=== PATIENT | male | born 1940 | race Caucasian/White ===

== ENCOUNTER → 2020-01-30 10:47 | Outpatient (BNVA) | payer MEDICARE, SELFPAY | PROVIDERS: Visit Provider Nurse Practitioner Gerontology | DX: E11.22 Type 2 diabetes mellitus with diabetic chronic kidney disease (principal); I12.9 Hypertensive chronic kidney disease with stage 1 through stage 4 chronic kidney disease, or unspecified chronic kidney disease; N18.30 Chronic kidney disease, stage 3 unspecified; Z79.4 Long term (current) use of insulin; E78.5 Hyperlipidemia, unspecified | CPT/HCPCS: 82947; 99212 ==

== ENCOUNTER → 2020-05-07 09:34 | Outpatient (BNVA) | payer MEDICARE, SELFPAY | PROVIDERS: Visit Provider Nurse Practitioner Gerontology | DX: E11.22 Type 2 diabetes mellitus with diabetic chronic kidney disease (principal); I12.9 Hypertensive chronic kidney disease with stage 1 through stage 4 chronic kidney disease, or unspecified chronic kidney disease; N18.30 Chronic kidney disease, stage 3 unspecified; Z79.4 Long term (current) use of insulin; E78.5 Hyperlipidemia, unspecified; E66.09 Other obesity due to excess calories | CPT/HCPCS: 82947; 99212 ==

== ENCOUNTER → 2020-06-11 09:11 | Outpatient (REF) | payer MEDICARE, SELFPAY ==
[2020-06-11 10:55] LABS: Alanine Aminotransferase 16 U/L (0-40); Albumin Level 4.3 g/dL (3.5-5.0); Alkaline Phosphatase 45 U/L (39-117); Anion Gap 14 (12-20); Aspartate Amino Transferase 20 U/L (5-37); Blood Urea Nitrogen 30 mg/dL (9-16); Calcium 9.6 mg/dL (8.4-10.2); Carbon Dioxide 25 mmol/L (22-29); Chloride 105 mmol/L (96-108); Cholesterol 141 mg/dL; Estimated Glomerular Filt Rate 41; Glucose Fasting 113 mg/dL (60-99); HDL Cholesterol 66 mg/dL; LDL Cholesterol Calculated 57 mg/dl; Sodium 139 mmol/L (135-145); Total Protein 7.5 g/dL (6.5-8.0); Triglycerides 91 mg/dL
[2020-06-11 11:10] LABS: Creatinine Urine 47.27 mg/dL
== END ==
LOC: HO.CARD 09:11
PROVIDERS: Nurse Practitioner Gerontology; Visit Provider Internal Medicine Cardiovascular Disease
DX: I35.0 Nonrheumatic aortic (valve) stenosis (principal); E11.22 Type 2 diabetes mellitus with diabetic chronic kidney disease; N18.30 Chronic kidney disease, stage 3 unspecified
CPT/HCPCS: 36415; 80053; 80061; 82043

== ENCOUNTER → 2020-08-06 08:37 | Outpatient (BNVA) | payer MEDICARE, SELFPAY | PROVIDERS: PCP Internal Medicine; Visit Provider Nurse Practitioner Gerontology | DX: E11.22 Type 2 diabetes mellitus with diabetic chronic kidney disease (principal); E11.42 Type 2 diabetes mellitus with diabetic polyneuropathy; E66.01 Morbid (severe) obesity due to excess calories; Z68.41 Body mass index [BMI] 40.0-44.9, adult; E78.5 Hyperlipidemia, unspecified; I12.9 Hypertensive chronic kidney disease with stage 1 through stage 4 chronic kidney disease, or unspecified chronic kidney disease; N18.30 Chronic kidney disease, stage 3 unspecified; Z79.4 Long term (current) use of insulin; Z71.3 Dietary counseling and surveillance; Z79.899 Other long term (current) drug therapy | CPT/HCPCS: 82947; 99212 ==

== ENCOUNTER 2020-10-29 15:07 | Inpatient (IN) | payer MEDICARE, SELFPAY ==
--- NOTE | ~2020-10-29 | XR_ITS ---
EXAMINATION: XR CHEST CLINICAL INFORMATION: ET tube and triple lumen catheter placement COMPARISON: 10/29/2020 TECHNIQUE: Frontal view of the chest was obtained. FINDINGS: Endotracheal tube tip lies approximately 2 cm above the andreina. Enteric tube courses into the stomach. Right IJ central line tip lies in the region of the distal SVC. Lung volumes are symmetric. There is mild diffuse interstitial prominence with no focal consolidation seen. No evidence of pneumothorax. Trace pleural effusions cannot be excluded. The cardiomediastinal silhouette is stable. No acute osseous findings are seen. XR/XR chest 1V IMPRESSION: Endotracheal tube tip 2 cm above the andreina. Right IJ central line tip in the region of the distal SVC. Mild diffuse interstitial prominence redemonstrated.
--- NOTE | ~2020-10-29 | XR_ITS ---
EXAMINATION: XR CHEST CLINICAL INFORMATION: Covid positive COMPARISON: Chest 11/07/2020 TECHNIQUE: Frontal view of the chest was obtained. FINDINGS: Lungs are well-expanded and clear acute pneumonic process. Mild interstitial prominence. The heart size and pulmonary vascularity is normal. There is a right jugular central line in mid SVC, enteric tube below diaphragm in the stomach and endotracheal tube approximately 5 cm above the andreina. No gross bony abnormality seen. XR/XR chest 1V IMPRESSION: No significant change in the lines and catheters and mild interstitial prominence in both lungs compared to previous study.
--- NOTE | ~2020-10-29 | XR_ITS ---
EXAMINATION: XR CHEST CLINICAL INFORMATION: COVID positive. Shortness of breath COMPARISON: None TECHNIQUE: Frontal view of the chest was obtained. FINDINGS: Lung volumes are low with diffuse interstitial prominence. No focal consolidation or mass. No pleural effusion or pneumothorax. Enlarged cardiac silhouette. XR/XR chest 1V IMPRESSION: Low lung volumes with diffuse interstitial prominence. This could reflect bronchovascular crowding from low lung volumes, pulmonary venous hypertension, bronchitis, or interstitial pneumonitis.
--- NOTE | ~2020-10-29 | NM_ITS ---
EXAMINATION: NM LUNG IMAGE PERFUSION CLINICAL INDICATION: Hypoxia. Elevated d-dimer. COMPARISON: Chest x-ray performed earlier same date PROCEDURE: Following the intravenous administration of 2.5 millicuries technetium 99m MAA, images of the chest were again obtained in multiple projections using a gamma scintophoto camera. FINDINGS: No segmental or subsegmental perfusion defects or other perfusion abnormalities are noted. NM/NM pul perfusion IMPRESSION: Pulmonary embolism absence.
--- NOTE | ~2020-10-29 | XR_ITS ---
EXAMINATION: XR CHEST CLINICAL INFORMATION: Worsening hypoxia. Covid positive COMPARISON: November 07, 2020 and October 29, 2020 TECHNIQUE: AP portable view of the chest was obtained. FINDINGS: There is an increase in interstitial markings and peribronchial cuffing compared to previous study which may be on the basis of pulmonary edema of cardiogenic or noncardiogenic etiology as well as viral or atypical pneumonitis. There is a region of parenchymal disease seen in the left retrocardiac region which appears to involve the lingula and left lower lobe. Endotracheal tube tip is seen approximately 4 cm above the andreina. Right internal jugular central venous catheter seen at the caval atrial junction. Enteric tube is seen traversing into the stomach. XR/XR chest 1V IMPRESSION: Increase in interstitial lung disease bilaterally as well as new consolidation left lung base.
[2020-10-29 15:24] VITALS: BP 90/40; PULSE 90; O2SAT 95
[2020-10-29 15:26] VITALS: BP 96/51; PULSE 82; O2SAT 88
--- NOTE | 2020-10-29 15:26 | PC.NURSE ---
pt greenlandic speaking only. initial complain SOB and Diarrhea. pt COVID + - SaO2 88% on room air, pt started on 3L NC. BP 96/51
--- NOTE | 2020-10-29 15:29 | ECG_ITS ---
Test Reason : SOB Blood Pressure : / mmHG Vent. Rate : 089 BPM Atrial Rate : 089 BPM P-R Int : 216 ms QRS Dur : 090 ms QT Int : 344 ms P-R-T Axes : 011 -40 053 degrees QTc Int : 418 ms Sinus rhythm with 1st degree A-V block with Premature atrial complexes Left axis deviation Possible Anterior infarct , age undetermined Abnormal ECG No previous ECGs available Referred By: Lo Lundy Electronically Signed By:YAZAN RUBIO
[2020-10-29 15:58] VITALS: BP 96/52; PULSE 82; RESP 14; O2SAT 88; BMI 35.5
[2020-10-29] MEDS: dexAMETHasone sod phosphate 4 MG/ML VIAL 6 MG IVPUSH (16:27)
[2020-10-29 16:29] VITALS: PULSE 87; O2SAT 94
[2020-10-29 16:39] LABS: Alanine Aminotransferase 58 U/L (0-40); Albumin Level 3.9 g/dL (3.5-5.0); Alkaline Phosphatase 50 U/L (39-117); Anion Gap 16 (12-20); Aspartate Amino Transferase 126 U/L (5-37); Bilirubin Direct 0.5 mg/dL (0.0-0.5); Blood Urea Nitrogen 54 mg/dL (9-16); Calcium 8.6 mg/dL (8.4-10.2); Carbon Dioxide 15 mmol/L (22-29); Chloride 102 mmol/L (96-108); Estimated Glomerular Filt Rate 28; Glucose Random 128 mg/dL (60-115); Magnesium 1.7 mg/dL (1.6-2.6); Potassium 5.2 mmol/L (3.3-5.1); Sodium 128 mmol/L (135-145); Total Protein 7.1 g/dL (6.5-8.0)
[2020-10-29 16:48] LABS: MANUAL DIFF FLAG NO
[2020-10-29 16:49] LABS: Basophils Percent Auto 0.1 % (0-2); Hematocrit 47.3 % (42-52); Hemoglobin 15.8 g/dl (14.0-18.0); Imm Gran Abs Auto 0.04 X10*3/uL (0.00-0.03); Imm Gran Pct Auto 0.6 % (0.0-0.4); Lymphocytes Absolute Auto 0.5 X10*3/uL (1.2-4.9); Lymphocytes Percent Auto 6.5 % (20-40); Mean Corpuscular HGB Conc 33.4 g/dl (31.0-36.0); Mean Corpuscular Hemoglobin 29.7 pg (27.0-33.0); Mean Corpuscular Volume 88.9 fL (80-98); Mean Platelet Volume 12.4 fL (9.4-12.4); Monocytes Absolute Auto 0.6 X10*3/uL (0.1-1.2); Monocytes Percent Auto 8.2 % (2-11); Neutrophils Percent Auto 84.6 % (45-73); Platelet Count 100 X10*3/uL (160-400); Red Blood Count 5.32 X10*6/uL (4.60-5.80); Red Cell Distribution Width 14.6 % (11.0-16.0)
[2020-10-29 16:56] LABS: Prothrombin Time 11.9 SEC (9.9-13.0)
[2020-10-29 16:58] LABS: B Type Natriuretic Peptide 20 pg/mL (<100); Troponin-I High Sensitivity 93.1 ng/L (<3.5-35.0)
[2020-10-29 16:59] LABS: D Dimer 699 NG/ML; Partial Thromboplastin Time 35.6 SEC (24.1-38.0)
--- NOTE | 2020-10-29 17:01 | ED_ITS ---
HPI - SOB/Dyspnea General Chief Complaint: Dyspnea Stated Complaint: diarrhea/hypotension covid+ Time Seen by Provider: 10/29/20 15:28 Source: patient and EMS Mode of arrival: EMS History of Present Illness HPI Narrative: 79-year-old male with a past medical history of arthritis, CKD, HTN, hyperlipidemia, diabetes, venous insufficiency, presenting to the ED via EMS sent in from urgent care for SOB and diarrhea, noted to be 88% on RA. Montez martines reports mild cough and nausea. Denies fever, chills, abdominal pain, vomiting, LE edema, calf pain, recent travel, chest pain, COVID-19 exposure MD elicited complaint: shortness of breath and cough Related Data Home Medications Medication Instructions Recorded Confirmed blood sugar diagnostic #10 ea 01/30/20 08/06/20 cilostazol 100 mg tablet 100 mg PO BID@1200,2100 01/30/20 10/29/20 insulin aspart U-100 100 unit/mL See Rx Instructions SUBCUT .COMPLEX 01/30/20 10/29/20 (3 mL) subcutaneous pen insulin glargine 100 unit/mL (3 48 unit SUBCUT BEDTIME 01/30/20 10/29/20 mL) subcutaneous pen lancets 33 gauge #100 ea 01/30/20 08/06/20 lisinopril 20 mg tablet 20 mg PO DAILY 01/30/20 10/29/20 pen needle, diabetic 32 gauge x #50 ea 01/30/20 08/06/20 5/32 simvastatin 40 mg tablet 40 mg PO BEDTIME 01/30/20 10/29/20 aspirin 81 mg tablet,delayed 1 tab PO BEDTIME 10/29/20 10/29/20 release chlorthalidone 25 mg tablet 1 tab PO QAM 10/29/20 10/29/20 latanoprost 0.005 % eye drops 1 drp OPHTHALMIC (EYE) BEDTIME 10/29/20 10/29/20 Previous Rx's Medication Instructions Recorded dapagliflozin 10 mg tablet 10 mg PO QAM #90 tab 10/06/20 (Farxiga) dulaglutide 0.75 mg/0.5 mL 0.75 mg SUBCUT QWEEK #6 ml 10/06/20 subcutaneous [facility] metformin 500 mg tablet,extended 500 mg PO BID #180 tab 10/06/20 release 24 hr pioglitazone 15 mg tablet 15 mg PO QAM #90 tab 10/28/20 Allergies Allergy/AdvReac Type Severity Reaction Status Date / Time No Known Allergies Allergy Unverified 08/06/20 08:57 [No Known Allergies*] Review of Systems Review of Systems: Constitutional: No Fever, No Chills, No Fatigue, No Malaise ENT/Mouth: No Ear Pain, No sore throat, No Rhinorrhea, No Swallowing Difficulty Eyes: No Eye Pain, No Swelling, No Vision Changes Cardiovascular: No Chest Pain, + SOB, No Dyspnea on Exertion, No Orthopnea, No Edema, No Palpitations Respiratory: + Cough, No Sputum, No Dyspnea Gastrointestinal: + Nausea, No Vomiting, + Diarrhea, No Constipation, No Abdominal pain Genitourinary: No irregular bleeding, No Dysuria, No Urinary Frequency, No Hematuria Musculoskeletal: No joint pain, No Myalgias, No Joint Swelling Skin: No Skin Lesions, No rash Neuro: No Weakness, No Numbness, No Paresthesias Yes all other systems are reviewed and are negative [facility] Past Medical History Attestation statement: The following information was validated with the patient. 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 Venous insufficiency Family History Family History (Updated 01/30/20 @ 11:37 by AZALIA Basurto) Sister Diabetes Social History Social History (Updated 05/07/20 @ 10:21 by AZALIA Basurto) Household Members: None Alcohol intake: current Alcohol intake frequency: a few times a month Patient Tobacco Use Status: Never used Tobacco Use of substances other than those prescribed or required for medical reasons: No Advance Directives: No Advance Directives Information Provided: Yes Physical Exam Vital Signs: Vital Signs: Last Vital Signs Pulse 82 10/29/20 18:06 Resp 14 10/29/20 18:06 BP 104/58 L 10/29/20 18:06 Pulse Ox 95 10/29/20 18:06 Body Mass Index 35.5 Const: General: cooperative, healthy appearing and no acute distress Orientation/consciousness: patient oriented x3 Limitations: no limitations HENMT: Head: Yes normal to inspection Ears: hearing grossly normal bilaterally General nose exam: Normal external nose present Face and sinus: Yes normal facial exam Eyes: General: appearance normal, both eyes and all related structures EOM: EOMs intact bilaterally Neck: Neck: Yes normal visual inspection and Yes no meningeal signs Resp: Effort & Inspection: normal respiratory effort Auscultation: clear to auscultation bilaterally, crackles bilateral in the lower lung brewer and no wheezes Cardio: Rate: regular rate Heart sounds: S1 normal heart sound present and S2 normal heart sound present GI: Inspection: Yes normal to inspection Palpation (GI): Soft to palpation, nontender and no guarding Skin: Rashes: no rashes Wounds: no wounds Neuro: General: patient oriented x3 and no meningeal signs Gait exam (Neuro): Normal gait present Extrem: General: Yes normal to inspection, Yes no pedal edema and Yes no calf tenderness Course Course Course Narrative: -1712--no leukocytosis. Platelets chronically low, Hyponatremic 128 > serum osmolality/urine studies ordered, potassium 5.2 > Kayexalate ordered -AST/ALT elevated. Acute on chronic Renal failure with BUN of 54, creatinine 2.2 >likely from dehydration with patient's diarrhea. -troponin elevated to 93.1 >> will obtain 3 hour repeat. D-dimer elevated to 699 (cannot perform CTA secondary to renal dysfunction), LDH & CRP also elevated consistent with COVID infection XR chest 1V IMPRESSION: Low lung volumes with diffuse interstitial prominence. This could reflect bronchovascular crowding from low lung volumes, pulmonary venous hypertension, bronchitis, or interstitial pneumonitis. ? -1812--ferritin also elevated. Procalcitonin 5.32 -1850--patient is COVID-19 positive > plan for admission MDM - SOB/Dyspnea MDM Narrative Medical decision making narrative: 79-year-old male with a past medical history of arthritis, CKD, HTN, hyperlipidemia, diabetes, venous insufficiency, presenting to the ED via EMS sent in from urgent care for SOB and diarrhea, not ed to be 88% on RA. Patient reports mild cough and nausea. On exam mildly hypotensive, hypoxic to 88% on RA > increased today 94% on 4L NC, in no respiratory distress, comfortable, lungs with bibasilar crackles, abdomen soft/nontender, no pedal edema/calf tenderness. Concern for viral syndrome/CO VID-19. Rule out pneumonia/other infectious etiology. Low concern for severe sepsis at this time. Likely viral etiology Plan: EKG, labs, CXR, COVID-19 testing, lactate, blood cultures. Medical Records Attestation: I reviewed the patient's medical records. Lab Data Attestation: I reviewed the patient's lab results. Result diagrams: 10/29/20 16:41 10/29/20 16:12 Labs: Lab Results 10/29/20 10/29/20 10/29/20 Range/Units 16:12 16:12 16:41 WBC 7.0 (4.8-10.8) X10*3/uL RBC 5.32 (4.60-5.80) X10*6/uL Hgb 15.8 (14.0-18.0) g/dl Hct 47.3 (42-52) % MCV 88.9 (80-98) fL MCH 29.7 (27.0-33.0) pg MCHC 33.4 (31.0-36.0) g/dl RDW 14.6 (11.0-16.0) % Plt Count 100 L (160-400) X10*3/uL MPV 12.4 (9.4-12.4) fL Immature Gran % (Auto) 0.6 H (0.0-0.4) % Neut % (Auto) 84.6 H (45-73) % Lymph % (Auto) 6.5 L (20-40) % Park % (Auto) 8.2 (2-11) % Eos % (Auto) 0.0 (0-4) % Baso % (Auto) 0.1 (0-2) % Lymph # (Auto) 0.5 L (1.2-4.9) X10*3/uL [place] # (Auto) 0.6 (0.1-1.2) X10*3/uL Eos # (Auto) 0.0 (0.0-0.4) X10*3/uL Baso # (Auto) 0.0 (0.0-0.2) X10*3/uL Abs Immat Gran (auto) 0.04 H (0.00-0.03) X10*3/uL Absolute Neuts (auto) 6.0 (2.0-8.3) X10*3/uL Absolute Nucleated RBC 0.000 (0.0-0.012) X10*3/uL Nucleated RBC % (auto) 0.0 (0.0-0.2) /100WBC PT (9.9-13.0) SEC INR (0.9-1.1) APTT (24.1-38.0) SEC D-Dimer NG/ML Sodium 128 L (135-145) mmol/L Potassium 5.2 H (3.3-5.1) mmol/L Chloride 102 (96-108) mmol/L Carbon Dioxide 15 L (22-29) mmol/L Anion Gap 16 (12-20) BUN 54 H D (9-16) mg/dL Creatinine 2.24 H (0.5-1.4) mg/dL Estim Creat Clear Calc 30.0 Estimated GFR 28 Random Glucose 128 H (60-115) mg/dL Osmolality (281-305) mosm/kg Lactic Acid (0.5-2.0) mmol/L Calcium 8.6 D (8.4-10.2) mg/dL Magnesium 1.7 (1.6-2.6) mg/dL Ferritin (20-250) ng/mL Total Bilirubin 1.0 (0.0-1.0) mg/dL Direct Bilirubin 0.5 (0.0-0.5) mg/dL AST 126 H (5-37) U/L ALT 58 H (0-40) U/L Alkaline Phosphatase 50 (39-117) U/L Lactate Dehydrogenase (118-273) U/L Troponin I High Sens 93.1 H* (<3.5-35.0) ng/L C-Reactive Protein (< or = 0.50) mg/dL B-Natriuretic Peptide 20 (<100) pg/mL Total Protein 7.1 (6.5-8.0) g/dL Albumin 3.9 (3.5-5.0) g/dL Procalcitonin ng/mL Coronavirus (PCR) (Negative) Influenza Type A (PCR) (Negative) Influenza Type B (PCR) (Negative) RSV RNA Qual (PCR) (Negative) 10/29/20 10/29/20 10/29/20 Range/Units 16:41 16:41 16:41 WBC (4.8-10.8) X10*3/uL RBC (4.60-5.80) X10*6/uL Hgb (14.0-18.0) g/dl Hct (42-52) % MCV (80-98) fL MCH (27.0-33.0) pg MCHC (31.0-36.0) g/dl RDW (11.0-16.0) % Plt Count (160-400) X10*3/uL MPV (9.4-12.4) fL Immature Gran % (Auto) (0.0-0.4) % Neut % (Auto) (45-73) % Lymph % (Auto) (20-40) % [place] % (Auto) (2-11) % Eos % (Auto) (0-4) % Baso % (Auto) (0-2) % Lymph # (Auto) (1.2-4.9) X10*3/uL [place] # (Auto) (0.1-1.2) X10*3/uL Eos # (Auto) (0.0-0.4) X10*3/uL Baso # (Auto) (0.0-0.2) X10*3/uL Abs Immat Gran (auto) (0.00-0.03) X10*3/uL Absolute Neuts (auto) (2.0-8.3) X10*3/uL Absolute Nucleated RBC (0.0-0.012) X10*3/uL Nucleated RBC % (auto) (0.0-0.2) /100WBC PT 11.9 (9.9-13.0) SEC INR 1.0 (0.9-1.1) APTT 35.6 (24.1-38.0) SEC D-Dimer 699 NG/ML Sodium (135-145) mmol/L Potassium (3.3-5.1) mmol/L Chloride (96-108) mmol/L Carbon Dioxide (22-29) mmol/L Anion Gap (12-20) BUN (9-16) mg/dL Creatinine (0.5-1.4) mg/dL Estim Creat Clear Calc Estimated GFR Random Glucose (60-115) mg/dL Osmolality (281-305) mosm/kg Lactic Acid 1.9 (0.5-2.0) mmol/L Calcium (8.4-10.2) mg/dL Magnesium (1.6-2.6) mg/dL Ferritin 878 H (20-250) ng/mL Total Bilirubin (0.0-1.0) mg/dL Direct Bilirubin (0.0-0.5) mg/dL AST (5-37) U/L ALT (0-40) U/L Alkaline Phosphatase (39-117) U/L Lactate Dehydrogenase 444 H (118-273) U/L Troponin I High Sens (<3.5-35.0) ng/L C-Reactive Protein 12.11 H (< or = 0.50) mg/dL B-Natriuretic Peptide (<100) pg/mL Total Protein (6.5-8.0) g/dL Albumin (3.5-5.0) g/dL Procalcitonin ng/mL Coronavirus (PCR) (Negative) Influenza Type A (PCR) (Negative) Influenza Type B (PCR) (Negative) RSV RNA Qual (PCR) (Negative) 10/29/20 10/29/20 10/29/20 Range/Units 16:41 16:41 16:49 WBC (4.8-10.8) X10*3/uL RBC (4.60-5.80) X10*6/uL Hgb (14.0-18.0) g/dl Hct (42-52) % MCV (80-98) fL MCH (27.0-33.0) pg MCHC (31.0-36.0) g/dl RDW (11.0-16.0) % Plt Count (160-400) X10*3/uL MPV (9.4-12.4) fL Immature Gran % (Auto) (0.0-0.4) % Neut % (Auto) (45-73) % Lymph % (Auto) (20-40) % [place] % (Auto) (2-11) % Eos % (Auto) (0-4) % Baso % (Auto) (0-2) % Lymph # (Auto) (1.2-4.9) X10*3/uL [place] # (Auto) (0.1-1.2) X10*3/uL Eos # (Auto) (0.0-0.4) X10*3/uL Baso # (Auto) (0.0-0.2) X10*3/uL Abs Immat Gran (auto) (0.00-0.03) X10*3/uL Absolute Neuts (auto) (2.0-8.3) X10*3/uL Absolute Nucleated RBC (0.0-0.012) X10*3/uL Nucleated RBC % (auto) (0.0-0.2) /100WBC PT (9.9-13.0) SEC INR (0.9-1.1) APTT (24.1-38.0) SEC D-Dimer NG/ML Sodium (135-145) mmol/L Potassium (3.3-5.1) mmol/L Chloride (96-108) mmol/L Carbon Dioxide (22-29) mmol/L Anion Gap (12-20) BUN (9-16) mg/dL Creatinine (0.5-1.4) mg/dL Estim Creat Clear Calc Estimated GFR Random Glucose (60-115) mg/dL Osmolality 285 (281-305) mosm/kg Lactic Acid (0.5-2.0) mmol/L Calcium (8.4-10.2) mg/dL Magnesium (1.6-2.6) mg/dL Ferritin (20-250) ng/mL Total Bilirubin (0.0-1.0) mg/dL Direct Bilirubin (0.0-0.5) mg/dL AST (5-37) U/L ALT (0-40) U/L Alkaline Phosphatase (39-117) U/L Lactate Dehydrogenase (118-273) U/L Troponin I High Sens (<3.5-35.0) ng/L C-Reactive Protein (< or = 0.50) mg/dL B-Natriuretic Peptide (<100) pg/mL Total Protein (6.5-8.0) g/dL Albumin (3.5-5.0) g/dL Procalcitonin 5.32 ng/mL Coronavirus (PCR) POSITIVE A (Negative) Influenza Type A (PCR) NEGATIVE (Negative) Influenza Type B (PCR) NEGATIVE (Negative) RSV RNA Qual (PCR) NEGATIVE (Negative) Discharge Plan Discharge Clinical Impression: COVID-19 Patient Disposition: Admitted As Inpatient Prescriptions: No Action Farxiga 10 mg tablet 10 mg PO QAM Qty: 90 RF: 1 Trulicity 0.75 mg/0.5 mL pen injector 0.75 mg subcut QWEEK Qty: 6 RF: 0 metformin 500 mg tablet extended release 24 hr 500 mg PO BID Qty: 180 RF: 0 pioglitazone 15 mg tablet 15 mg PO QAM Qty: 90 RF: 1 latanoprost 0.005 % drops 1 drp ophthalmic (eye) BEDTIME RF: 0 chlorthalidone 25 mg tablet 1 tab PO QAM RF: 0 aspirin 81 mg tablet,delayed release (DR/EC) 1 tab PO BEDTIME RF: 0 (DME) lancets 33 gauge misc See Rx Instructions ea .ROUTE .MEDSUPPLY Qty: 100 RF: 0 (DME) pen needle, diabetic 32 gauge x 5/32 needle See Rx Instructions ea .ROUTE .MEDSUPPLY Qty: 50 RF: 0 Lantus Solostar U-100 Insulin 100 unit/mL (3 mL) insulin pen 48 unit subcut BEDTIME RF: 0 simvastatin 40 mg tablet 40 mg PO BEDTIME RF: 0 (DME) FreeStyle Lite Strips Strip See Rx Instructions ea Not Applicable .MEDSUPPLY Qty: 10 RF: 0 lisinopril 20 mg tablet 20 mg PO DAILY RF: 0 cilostazol 100 mg tablet 100 mg PO BID@1200,2100 RF: 0 insulin aspart U-100 100 unit/mL (3 mL) insulin pen See Rx Instructions subcut .COMPLEX RF: 0
[2020-10-29 17:04] LABS: Lactic Acid 1.9 mmol/L (0.5-2.0)
[2020-10-29 17:06] LABS: C Reactive Protein 12.11 mg/dL (< or = 0.50); Lactate Dehydrogenase 444 U/L (118-273)
[2020-10-29 17:28] LABS: Ferritin 878 ng/mL (20-250); Procalcitonin 5.32 ng/mL
[2020-10-29 18:06] VITALS: BP 104/58; PULSE 82; RESP 14; O2SAT 95
[2020-10-29] MEDS: Sodium Polystyrene Sulfon/Sorb 15 GM/60 ML ORAL.SUSP PO (18:08)
[2020-10-29] MEDS: 0.9 % Sodium Chloride 1,000 ML 999 ML IVCONT (18:10)
[2020-10-29 18:31] LABS: Osmolality, Serum 285 mosm/kg (281-305)
[2020-10-29 18:38] LABS: Influenza A PCR NEGATIVE (Negative); Influenza B PCR NEGATIVE (Negative); Resp Syncy Virus RNA Qual PCR NEGATIVE (Negative); SARS COV2 PCR INHOUSE POSITIVE (Negative)
[2020-10-29] MEDS: cefTRIAXone sodium 1 GM in 0.9 % Sodium Chloride 50 ML IV (19:10)
--- NOTE | 2020-10-29 19:43 | PC.NURSE ---
PT OFF UNIT - UNABLE TO START NEXT ABX
[2020-10-29] MEDS: Doxycycline Hyclate 100 MG in 0.9 % Sodium Chloride 250 ML 166.67 MG IV (20:30)
--- NOTE | 2020-10-29 20:30 | PC.NURSE ---
PT BACK FROM NUCLEAR MEDICINE - STARTED ON ABX
[2020-10-29 20:31] VITALS: BP 118/63; PULSE 78; RESP 14; TEMP 37.4; O2SAT 97
--- NOTE | 2020-10-29 22:15 | PM.IMHP ---
History of Present Illness Date of Service: 10/29/20 Chief Complaint: COVID +ve hypoxia 79-year-old male with past medical history of CKD, HTN, HLD, diabetes on insulin, presents to the hospital with COVID-19 symptoms. Patient himself is English-speaking, confused about his location as well as time, is not really giving good history therefore history is obtained mostly from ED staff. Apparently patient had cough and shortness of breath and therefore went to urgent care clinic found to have positive COVID resolved and sent to the ED. Patient himself denies any shortness of breath, no cough, no chest pain, no palpitations, no fever or chills, denies any sick contacts and recent travel. All other review of system negative except as mentioned On arrival to the ED patient found to be hypoxic with an O2 level of 88% on room air. Labs on arrival significant for WBC count of 7.0 sodium of 128, potassium 5.2, BUN of 54 with a creatinine of 2.24 with a baseline around 1.63, AST of 126, ALT of 58, troponin of 93 that increased to 103.0, COVID-19 positive PCR Chest x-ray shows low lung volume with diffuse interstitial prominence. 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 Venous insufficiency Family History Sister Diabetes Pertinent family history: Unable to obtain as patient is confused Surgical History (Updated 10/30/20 @ 07:31 by Faith Strong MD) No pertinent past surgical history Social History (Updated 05/07/20 @ 10:21 by AZALIA Basurto) Household Members: None Alcohol intake: current Alcohol intake frequency: a few times a month Patient Tobacco Use Status: Never used Tobacco Use of substances other than those prescribed or required for medical reasons: No Advance Directives: No Advance Directives Information Provided: Yes Meds Allergies Allergy/AdvReac Type Severity Reaction Status Date / Time No Known Allergies Allergy Unverified 08/06/20 08:57 [No Known Allergies*] Active Medications: Current Medications Generic Name Dose Route Start Last Admin Trade Name Alisha PRN Reason Stop Dose Admin Pharmacy Consult 1 each 10/29/20 15:29 Consult Rx Perform Med Rec MISCELLANE ONCE PRN Consult order Home Medications Medication Instructions Recorded Confirmed Last Taken Type blood sugar diagnostic #10 ea 01/30/20 08/06/20 Unknown History cilostazol 100 mg tablet 100 mg PO BID@1200,2100 01/30/20 10/29/20 Unknown History insulin aspart U-100 100 unit/mL See Rx Instructions SUBCUT .COMPLEX 01/30/20 10/29/20 Unknown History (3 mL) subcutaneous pen insulin glargine 100 unit/mL (3 48 unit SUBCUT BEDTIME 01/30/20 10/29/20 Unknown History mL) subcutaneous pen lancets 33 gauge #100 ea 01/30/20 08/06/20 Unknown History lisinopril 20 mg tablet 20 mg PO DAILY 01/30/20 10/29/20 Unknown History pen needle, diabetic 32 gauge x #50 ea 01/30/20 08/06/20 Unknown History simvastatin 40 mg tablet 40 mg PO BEDTIME 01/30/20 10/29/20 Unknown History aspirin 81 mg tablet,delayed 1 tab PO BEDTIME 10/29/20 10/29/20 Unknown History release chlorthalidone 25 mg tablet 1 tab PO QAM 10/29/20 10/29/20 Unknown History latanoprost 0.005 % eye drops 1 drp OPHTHALMIC (EYE) BEDTIME 10/29/20 10/29/20 Unknown History Physical Exam Vital Signs and Narrative: Vital Signs: Last Vital Signs Temp 99.3 F 10/29/20 20:31 Pulse 78 10/29/20 20:31 Resp 14 10/29/20 20:31 BP 118/63 10/29/20 20:31 Pulse Ox 97 10/29/20 20:31 Body Mass Index 35.5 Const: General: cooperative and no acute distress Eyes: General: appearance normal, both eyes and all related structures Resp: Effort & Inspection: normal respiratory effort Cardio: Rate: regular rate Rhythm: regular rhythm GI: Palpation (GI): Soft to palpation Auscultation: normal bowel sounds Skin: General skin exam: no rashes or lesions noted Neuro: Cognition (Neuro): normal cognition Extrem: General: Yes normal to inspection and Yes no pedal edema Results Labs CBC and Chem 7: 10/29/20 16:41 10/29/20 16:12 Labs: Laboratory Results - last 24 hr 10/29/20 10/29/20 10/29/20 16:12 16:12 16:41 MCV 88.9 MCH 29.7 MCHC 33.4 RDW 14.6 Plt Count 100 L MPV 12.4 Immature Gran % (Auto) 0.6 H Neut % (Auto) 84.6 H Lymph % (Auto) 6.5 L [place] % (Auto) 8.2 Eos % (Auto) 0.0 Baso % (Auto) 0.1 Lymph # (Auto) 0.5 L [place] # (Auto) 0.6 Eos # (Auto) 0.0 Baso # (Auto) 0.0 Abs Immat Gran (auto) 0.04 H Absolute Neuts (auto) 6.0 Absolute Nucleated RBC 0.000 Nucleated RBC % (auto) 0.0 PT INR APTT D-Dimer Anion Gap 16 Estim Creat Clear Calc 30.0 Estimated GFR 28 Random Glucose 128 H Osmolality Lactic Acid Calcium 8.6 D Magnesium 1.7 Ferritin Total Bilirubin 1.0 Direct Bilirubin 0.5 AST 126 H ALT 58 H Alkaline Phosphatase 50 Lactate Dehydrogenase Troponin I High Sens 93.1 H* C-Reactive Protein B-Natriuretic Peptide 20 Total Protein 7.1 Albumin 3.9 Procalcitonin Coronavirus (PCR) Influenza Type A (PCR) Influenza Type B (PCR) RSV RNA Qual (PCR) 10/29/20 10/29/20 10/29/20 16:41 16:41 16:41 MCV MCH MCHC RDW Plt Count MPV Immature Gran % (Auto) Neut % (Auto) Lymph % (Auto) [place] % (Auto) Eos % (Auto) Baso % (Auto) Lymph # (Auto) [place] # (Auto) Eos # (Auto) Baso # (Auto) Abs Immat Gran (auto) Absolute Neuts (auto) Absolute Nucleated RBC Nucleated RBC % (auto) PT 11.9 INR 1.0 APTT 35.6 D-Dimer 699 Anion Gap Estim Creat Clear Calc Estimated GFR Random Glucose Osmolality Lactic Acid 1.9 Calcium Magnesium Ferritin 878 H Total Bilirubin Direct Bilirubin AST ALT Alkaline Phosphatase Lactate Dehydrogenase 444 H Troponin I High Sens C-Reactive Protein 12.11 H B-Natriuretic Peptide Total Protein Albumin Procalcitonin Coronavirus (PCR) Influenza Type A (PCR) Influenza Type B (PCR) RSV RNA Qual (PCR) 10/29/20 10/29/20 10/29/20 16:41 16:41 16:49 MCV MCH MCHC RDW Plt Count MPV Immature Gran % (Auto) Neut % (Auto) Lymph % (Auto) [place] % (Auto) Eos % (Auto) Baso % (Auto) Lymph # (Auto) [place] # (Auto) Eos # (Auto) Baso # (Auto) Abs Immat Gran (auto) Absolute Neuts (auto) Absolute Nucleated RBC Nucleated RBC % (auto) PT INR APTT D-Dimer Anion Gap Estim Creat Clear Calc Estimated GFR Random Glucose Osmolality 285 Lactic Acid Calcium Magnesium Ferritin Total Bilirubin Direct Bilirubin AST ALT Alkaline Phosphatase Lactate Dehydrogenase Troponin I High Sens C-Reactive Protein B-Natriuretic Peptide Total Protein Albumin Procalcitonin 5.32 Coronavirus (PCR) POSITIVE A Influenza Type A (PCR) NEGATIVE Influenza Type B (PCR) NEGATIVE RSV RNA Qual (PCR) NEGATIVE 10/29/20 19:47 MCV MCH MCHC RDW Plt Count MPV Immature Gran % (Auto) Neut % (Auto) Lymph % (Auto) [place] % (Auto) Eos % (Auto) Baso % (Auto) Lymph # (Auto) [place] # (Auto) Eos # (Auto) Baso # (Auto) Abs Immat Gran (auto) Absolute Neuts (auto) Absolute Nucleated RBC Nucleated RBC % (auto) PT INR APTT D-Dimer Anion Gap Estim Creat Clear Calc Estimated GFR Random Glucose Osmolality Lactic Acid Calcium Magnesium Ferritin Total Bilirubin Direct Bilirubin AST ALT Alkaline Phosphatase Lactate Dehydrogenase Troponin I High Sens 103.0 H* C-Reactive Protein B-Natriuretic Peptide Total Protein Albumin Procalcitonin Coronavirus (PCR) Influenza Type A (PCR) Influenza Type B (PCR) RSV RNA Qual (PCR) Imaging Radiologist's Impressions: Impressions Chest X-Ray 10/29/20 15:29 IMPRESSION: Low lung volumes with diffuse interstitial prominence. This could reflect bronchovascular crowding from low lung volumes, pulmonary venous hypertension, bronchitis, or interstitial pneumonitis. Assessment and Plan (1) COVID-19: Status: Acute (2) Acute respiratory failure with hypoxia: Status: Acute 79-year-old male presents to the hospital with hypoxia found to have COVID-19 pneumonia # acute hypoxic respiratory failure - secondary to COVID-19 - negative for PE - will start him on dexamethasone - monitor respiratory status # COVID-19 pneumonia - hypoxic - management as above with dexamethasone - monitor respiratory status # diabetes - stable - continue home insulin - add low-dose sliding scale - diabetic diet # hypertension - stable - continue home medications DVT prophylaxis: Heparin subQ Quality Stroke Does the patient have a stroke diagnosis?: No VTE Prior VTE?: No VTE Risk Level:: Medical - moderate - high VTE Device Contraindication: Treatment Not Indicated VTE Drug Contraindication: N/A - Med Ordered
[2020-10-30] VITALS (11 sets, daily range): BP systolic 90–139; BP diastolic 49–73; PULSE 64–99; RESP 16–23; TEMP 36.6–36.8; O2SAT 90–98; BMI 41.0
[2020-10-30 01:29] LABS: Creatinine Urine 134.08 mg/dL; Potassium Urine Random 40.1 mmol/L
[2020-10-30 01:52] LABS: Osmolality Urine 503 mosm/kg (373-1093)
[2020-10-30] MEDS: 0.9 % Sodium Chloride 1,000 ML 100 ML IVCONT ×4 (01:58→23:27)
[2020-10-30] MEDS: Aspirin Enteric Coated 81 MG TABLET.DR PO ×2 (01:59→22:08)
[2020-10-30] MEDS: 0.9 % Sodium Chloride Flush 3 ML SYRINGE IVFLUSH ×3 (01:59→16:18)
[2020-10-30] MEDS: Heparin Sodium,Porcine 5,000 UNIT/ML VIAL 5000 UNIT SUBCUT ×2 (01:59→15:30)
[2020-10-30 02:10] LABS: Glucose, Whole Blood 151 mg/dL (60-115)
--- NOTE | 2020-10-30 02:38 | PC.NURSE ---
PT NOT GIVEN BEDTIME LANTUS, ORDERS CAME THROUGH AT 1AM, AND RN NOT ABLE TO ADMINISTER UNTIL 2:40 AM. PT HAS COVERAGE IN MORNING, DIDN'T WANT TO ADMINISTER SO LATE. PT DID NOT HAVE SNACK, UNKNOWN IF HE HAD DINNER TRAY. CARE TAKEN OVER BY THIS RN AT 23:00.
--- NOTE | 2020-10-30 02:54 | PC.NURSE ---
SPOKE WITH HOSPITALIST, WHO DOES NOT WANT PT TO HAVE THAT DOSE OF LANTUS.
[2020-10-30] MEDS: dexAMETHasone sod phosphate 4 MG/ML VIAL 6 MG IVPUSH (09:00)
[2020-10-30] MEDS: Sodium Bicarbonate 650 MG TABLET PO ×3 (09:02→22:07)
[2020-10-30] MEDS: hydroCHLOROthiazide 25 MG TABLET PO (09:02)
[2020-10-30 09:11] LABS: Glucose, Whole Blood 146 mg/dL (60-115)
[2020-10-30 10:19] LABS: MANUAL DIFF FLAG NO
[2020-10-30 10:23] LABS: Hematocrit 46.7 % (42-52); Hemoglobin 15.1 g/dl (14.0-18.0); Imm Gran Abs Auto 0.03 X10*3/uL (0.00-0.03); Imm Gran Pct Auto 0.5 % (0.0-0.4); Lymphocytes Absolute Auto 0.8 X10*3/uL (1.2-4.9); Lymphocytes Percent Auto 13.9 % (20-40); Mean Corpuscular HGB Conc 32.3 g/dl (31.0-36.0); Mean Corpuscular Hemoglobin 29.4 pg (27.0-33.0); Mean Platelet Volume 12.4 fL (9.4-12.4); Monocytes Absolute Auto 0.5 X10*3/uL (0.1-1.2); Monocytes Percent Auto 8.7 % (2-11); Neutrophils Absolute Auto 4.3 X10*3/uL (2.0-8.3); Neutrophils Percent Auto 76.9 % (45-73); Red Blood Count 5.13 X10*6/uL (4.60-5.80); Red Cell Distribution Width 14.6 % (11.0-16.0); White Blood Count 5.5 X10*3/uL (4.8-10.8)
[2020-10-30 10:34] LABS: Anion Gap 15 (12-20); Blood Urea Nitrogen 58 mg/dL (9-16); Calcium 8.1 mg/dL (8.4-10.2); Carbon Dioxide 18 mmol/L (22-29); Chloride 104 mmol/L (96-108); Creatinine Clr Calc Pharmacy 32.8; Estimated Glomerular Filt Rate 32; Glucose Random 157 mg/dL (60-115); Potassium 5.1 mmol/L (3.3-5.1); Sodium 132 mmol/L (135-145)
[2020-10-30 10:37] LABS: Platelet Count 85 X10*3/uL (160-400)
[2020-10-30 13:33] LABS: Glucose, Whole Blood 130 mg/dL (60-115)
--- NOTE | 2020-10-30 14:36 | HO.PM.IMPN ---
Subjective Subjective Date of Service: 10/30/20 Interval History: The patient seen and evaluated this morning Sitting in his bed, looks comfortable overall Patient demented but denies any major complaints No reported other overnight events Review of Systems No fever, chills No chest pain, palpitation Has shortness of breath and coughing No abdominal pain, nausea or vomiting No urinary symptoms No any rash or wounds Physical Exam Vital Signs: Vital Signs: Last Vital Signs Temp 99.3 F 10/29/20 20:31 Pulse 69 10/30/20 09:01 Resp 19 10/30/20 08:57 BP 100/49 L 10/30/20 09:01 Pulse Ox 90 L 10/30/20 08:57 Body Mass Index 35.5 Const: Other: Constitutional : Alert, disoriented, in mild respiratory distress Neck : Normal inspection, Supple Cardiovascular : RRR, S1 S2, no lower extremity edema Respiratory : Moving bilateral chest wall, mildly tachypnea Gastrointestinal: soft, lax, Normal bowel sounds, Non tender Skin : Warm, Dry Neurological : Alert & disoriented, No focal deficit Objective Data Active Medications Acetaminophen (Acetaminophen 325 Mg Tablet) 650 mg PO Q6H PRN PRN Reason: Pain, Mild (Pain Scale 1-3) Aspirin (Aspirin Enteric Coated 81 Mg Tablet.Dr) 81 mg PO BEDTIME [facility] Last Admin: 10/30/20 01:59 Dose: 81 mg Documented by: SOLOMON Atorvastatin Calcium (Atorvastatin Calcium 20 Mg Tablet) 20 mg PO BEDTIME [facility] Cilostazol (Cilostazol 100 Mg Tablet) 100 mg PO BID@1200,2100 [facility] Dexamethasone Sodium Phosphate (Dexamethasone Sod Phosphate 4 Mg/Ml Vial) 6 mg IVPUSH DAILY [facility] Last Admin: 10/30/20 09:00 Dose: 6 mg Documented by: EDUARDO Dextrose (Dextrose 50 % 25 Gm/50 Ml Vial) 25 gm IVPUSH Q15M PRN; Protocol PRN Reason: per Hypoglycemia Standing Ord. Docusate Sodium (Docusate Sodium 100 Mg Capsule) 100 mg PO DAILY PRN PRN Reason: Constipation Glucose (Glucose Gel 15 Gm Gel..Gram.) 15 gm PO Q15M PRN; Protocol PRN Reason: per Hypoglycemia Standing Ord. Heparin Sodium (Porcine) (Heparin Sodium,Porcine 5,000 Unit/Ml Vial) 5,000 unit SUBCUT Q12H [facility] Last Admin: 10/30/20 01:59 Dose: 5,000 unit Documented by: SOLOMON Hydrochlorothiazide (Hydrochlorothiazide 25 Mg Tablet) 25 mg PO DAILY [facility] Last Admin: 10/30/20 09:02 Dose: 25 mg Documented by: EDUARDO Sodium Chloride (Ns) 1,000 mls @ 100 mls/hr IVCONT .Q10H [facility] Last Admin: 10/30/20 08:59 Dose: 100 mls/hr Documented by: EDUARDO Insulin Glargine (Insulin Glargine,Hum.Rec.Anlog 100 Unit/Ml 10 Ml Vial) 48 unit SUBCUT BEDTIME [facility] Last Admin: 10/30/20 02:38 Dose: Not Given Documented by: SOLOMON Non-Admin Reason: See Note Insulin Human Lispro (Insulin Lispro 100 Unit/Ml 3 Ml Vial) 0 unit SUBCUT QIDACHS [facility]; Protocol Last Admin: 10/30/20 09:01 Dose: Not Given Documented by: EDUARDO Non-Admin Reason: See Note Latanoprost (Latanoprost 0.005 % Ophth Lori 2.5 Ml Drops) 1 drop EYE-BOTH BEDTIME [facility] Lisinopril (Lisinopril 20 Mg Tablet) 20 mg PO DAILY [facility]; Protocol Last Admin: 10/30/20 09:01 Dose: Not Given Documented by: EDUARDO Non-Admin Reason: See Note Ondansetron HCl (Ondansetron Hcl 4 Mg/2 Ml Vial) 4 mg IVPUSH Q8H PRN PRN Reason: Nausea and Vomiting Pharmacy Consult (Consult Rx Perform Med Rec) 1 each MISCELLANE ONCE PRN PRN Reason: Consult order Sodium Bicarbonate (Sodium Bicarbonate 650 Mg Tablet) 650 mg PO TID [facility] Last Admin: 10/30/20 09:02 Dose: 650 mg Documented by: EDUARDO Sodium Chloride (0.9 % Sodium Chloride Flush 3 Ml Syringe) 3 ml IVFLUSH QSHIFT [facility] Last Admin: 10/30/20 09:00 Dose: 3 ml Documented by: EDUARDO Labs CBC & Chem 7: 10/30/20 10:14 10/30/20 10:14 Labs: Laboratory Results - last 24 hr 10/29/20 10/29/20 10/29/20 16:12 16:12 16:41 MCV 88.9 MCH 29.7 MCHC 33.4 RDW 14.6 Plt Count 100 L MPV 12.4 Immature Gran % (Auto) 0.6 H Neut % (Auto) 84.6 H Lymph % (Auto) 6.5 L Dod[place]idge % (Auto) 8.2 Eos % (Auto) 0.0 Baso % (Auto) 0.1 Lymph # (Auto) 0.5 L Dod[place] # (Auto) 0.6 Eos # (Auto) 0.0 Baso # (Auto) 0.0 Abs Immat Gran (auto) 0.04 H Absolute Neuts (auto) 6.0 Absolute Nucleated RBC 0.000 Nucleated RBC % (auto) 0.0 PT INR APTT D-Dimer Anion Gap 16 Estim Creat Clear Calc 30.0 Estimated GFR 28 POC Glucose Random Glucose 128 H Osmolality Lactic Acid Calcium 8.6 D Magnesium 1.7 Ferritin Total Bilirubin 1.0 Direct Bilirubin 0.5 AST 126 H ALT 58 H Alkaline Phosphatase 50 Lactate Dehydrogenase Troponin I High Sens 93.1 H* C-Reactive Protein B-Natriuretic Peptide 20 Total Protein 7.1 Albumin 3.9 Procalcitonin Urine Osmolality Ur Random Sodium Ur Random Potassium Ur Random Chloride Urine Creatinine Coronavirus (PCR) Influenza Type A (PCR) Influenza Type B (PCR) RSV RNA Qual (PCR) 10/29/20 10/29/20 10/29/20 16:41 16:41 16:41 MCV MCH MCHC RDW Plt Count MPV Immature Gran % (Auto) Neut % (Auto) Lymph % (Auto) Doddridge % (Auto) Eos % (Auto) Baso % (Auto) Lymph # (Auto) Doddridge # (Auto) Eos # (Auto) Baso # (Auto) Abs Immat Gran (auto) Absolute Neuts (auto) Absolute Nucleated RBC Nucleated RBC % (auto) PT 11.9 INR 1.0 APTT 35.6 D-Dimer 699 Anion Gap Estim Creat Clear Calc Estimated GFR POC Glucose Random Glucose Osmolality Lactic Acid 1.9 Calcium Magnesium Ferritin 878 H Total Bilirubin Direct Bilirubin AST ALT Alkaline Phosphatase Lactate Dehydrogenase 444 H Troponin I High Sens C-Reactive Protein 12.11 H B-Natriuretic Peptide Total Protein Albumin Procalcitonin Urine Osmolality Ur Random Sodium Ur Random Potassium Ur Random Chloride Urine Creatinine Coronavirus (PCR) Influenza Type A (PCR) Influenza Type B (PCR) RSV RNA Qual (PCR) 10/29/20 10/29/20 10/29/20 16:41 16:41 16:49 MCV MCH MCHC RDW Plt Count MPV Immature Gran % (Auto) Neut % (Auto) Lymph % (Auto) Doddridge % (Auto) Eos % (Auto) Baso % (Auto) Lymph # (Auto) Doddridge # (Auto) Eos # (Auto) Baso # (Auto) Abs Immat Gran (auto) Absolute Neuts (auto) Absolute Nucleated RBC Nucleated RBC % (auto) PT INR APTT D-Dimer Anion Gap Estim Creat Clear Calc Estimated GFR POC Glucose Random Glucose Osmolality 285 Lactic Acid Calcium Magnesium Ferritin Total Bilirubin Direct Bilirubin AST ALT Alkaline Phosphatase Lactate Dehydrogenase Troponin I High Sens C-Reactive Protein B-Natriuretic Peptide Total Protein Albumin Procalcitonin 5.32 Urine Osmolality Ur Random Sodium Ur Random Potassium Ur Random Chloride Urine Creatinine Coronavirus (PCR) POSITIVE A Influenza Type A (PCR) NEGATIVE Influenza Type B (PCR) NEGATIVE RSV RNA Qual (PCR) NEGATIVE 10/29/20 10/30/20 10/30/20 19:47 01:10 01:10 MCV MCH MCHC RDW Plt Count MPV Immature Gran % (Auto) Neut % (Auto) Lymph % (Auto) Doddridge % (Auto) Eos % (Auto) Baso % (Auto) Lymph # (Auto) Doddridge # (Auto) Eos # (Auto) Baso # (Auto) Abs Immat Gran (auto) Absolute Neuts (auto) Absolute Nucleated RBC Nucleated RBC % (auto) PT INR APTT D-Dimer Anion Gap Estim Creat Clear Calc Estimated GFR POC Glucose Random Glucose Osmolality Lactic Acid Calcium Magnesium Ferritin Total Bilirubin Direct Bilirubin AST ALT Alkaline Phosphatase Lactate Dehydrogenase Troponin I High Sens 103.0 H* C-Reactive Protein B-Natriuretic Peptide Total Protein Albumin Procalcitonin Urine Osmolality 503 Ur Random Sodium 64.0 Ur Random Potassium 40.1 Ur Random Chloride 45.0 Urine Creatinine 134.08 Coronavirus (PCR) Influenza Type A (PCR) Influenza Type B (PCR) RSV RNA Qual (PCR) 10/30/20 10/30/20 10/30/20 01:48 08:54 10:14 MCV 91.0 MCH 29.4 MCHC 32.3 RDW 14.6 Plt Count 85 L MPV 12.4 Immature Gran % (Auto) 0.5 H Neut % (Auto) 76.9 H Lymph % (Auto) 13.9 L Dod[place]idge % (Auto) 8.7 Eos % (Auto) 0.0 Baso % (Auto) 0.0 Lymph # (Auto) 0.8 L Dod[place] # (Auto) 0.5 Eos # (Auto) 0.0 Baso # (Auto) 0.0 Abs Immat Gran (auto) 0.03 Absolute Neuts (auto) 4.3 Absolute Nucleated RBC 0.000 Nucleated RBC % (auto) 0.0 PT INR APTT D-Dimer Anion Gap Estim Creat Clear Calc Estimated GFR POC Glucose 151 H 146 H Random Glucose Osmolality Lactic Acid Calcium Magnesium Ferritin Total Bilirubin Direct Bilirubin AST ALT Alkaline Phosphatase Lactate Dehydrogenase Troponin I High Sens C-Reactive Protein B-Natriuretic Peptide Total Protein Albumin Procalcitonin Urine Osmolality Ur Random Sodium Ur Random Potassium Ur Random Chloride Urine Creatinine Coronavirus (PCR) Influenza Type A (PCR) Influenza Type B (PCR) RSV RNA Qual (PCR) 10/30/20 10/30/20 10:14 13:26 MCV MCH MCHC RDW Plt Count MPV Immature Gran % (Auto) Neut % (Auto) Lymph % (Auto) Doddridge % (Auto) Eos % (Auto) Baso % (Auto) Lymph # (Auto) Doddridge # (Auto) Eos # (Auto) Baso # (Auto) Abs Immat Gran (auto) Absolute Neuts (auto) Absolute Nucleated RBC Nucleated RBC % (auto) PT INR APTT D-Dimer Anion Gap 15 Estim Creat Clear Calc 32.8 Estimated GFR 32 POC Glucose 130 H Random Glucose 157 H Osmolality Lactic Acid Calcium 8.1 L Magnesium Ferritin Total Bilirubin Direct Bilirubin AST ALT Alkaline Phosphatase Lactate Dehydrogenase Troponin I High Sens C-Reactive Protein B-Natriuretic Peptide Total Protein Albumin Procalcitonin Urine Osmolality Ur Random Sodium Ur Random Potassium Ur Random Chloride Urine Creatinine Coronavirus (PCR) Influenza Type A (PCR) Influenza Type B (PCR) RSV RNA Qual (PCR) Assessment and Plan (1) Acute respiratory failure with hypoxia: Status: Acute (2) COVID-19: Status: Acute Assessment and Plan: 79-year-old male presents to the hospital with hypoxia found to have COVID-19 pneumonia # acute hypoxic respiratory failure # secondary to COVID-19 Continue on dexamethasone day 2 To get ID evaluation Wean oxygen down as tolerated monitor respiratory status # diabetes continue home insulin low-dose sliding scale diabetic diet # hyponatremia Sodium of 132 Improved from last night, continue # acute kidney injury # Metabolic acidosis Creatinine improved to 2 from 2.4 Baseline around 1.6 Avoid nephrotoxic medications Follow BMP Continue sodium bicarb next Lyme # hypertension continue home medications DVT prophylaxis Heparin subQ Quality Stroke Does the patient have a stroke diagnosis?: No VTE Prior VTE?: No VTE Risk Level:: Medical - moderate - high VTE Device Contraindication: Treatment Not Indicated VTE Drug Contraindication: N/A - Med Ordered
[2020-10-30 14:51] LABS: Glucose, Whole Blood 168 mg/dL (60-115)
[2020-10-30] MEDS: cilostazoL 100 MG TABLET PO ×2 (15:29→22:08)
[2020-10-30 17:07] LABS: Glucose, Whole Blood 247 mg/dL (60-115)
[2020-10-30] MEDS: Insulin Lispro 100 UNIT/ML 3 ML VIAL SUBCUT ×2 (18:36→22:09)
[2020-10-30 18:39] LABS: Alanine Aminotransferase 51 U/L (0-40); Albumin Level 3.6 g/dL (3.5-5.0); Alkaline Phosphatase 50 U/L (39-117); Aspartate Amino Transferase 109 U/L (5-37); Bilirubin Direct 0.4 mg/dL (0.0-0.5); Bilirubin Total 0.7 mg/dL (0.0-1.0); Total Protein 6.4 g/dL (6.5-8.0)
--- NOTE | 2020-10-30 19:47 | PC.NURSE ---
nurse to nurse report given to Prema BURKETT
[2020-10-30 20:59] LABS: Glucose, Whole Blood 249 mg/dL (60-115)
[2020-10-30] MEDS: Remdesivir 200 MG in 0.9 % Sodium Chloride 210 ML 105 MG IV (21:42)
[2020-10-30] MEDS: Insulin Glargine,Hum.rec.anlog 100 UNIT/ML 10 ML VIAL 48 UNIT SUBCUT (22:08)
[2020-10-30] MEDS: Atorvastatin Calcium 20 MG TABLET PO (22:08)
--- NOTE | 2020-10-30 22:47 | P.CNID_ITS ---
History of Present Illness Data of Consult Service Date: 10/30/20 Requesting physician: Jame Saravia Primary Care Provider: Unknown Physician HPI Reason for consult: COVID pneumonia He presents with shortness of breath he thinks about five days and has had cough. He has no fever or chills. 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 Venous insufficiency Family History Family History Sister Diabetes Family history: reviewed and not pertinent Surgical History Surgical History No pertinent past surgical history Social History Social History Household Members: None Housing: Apartment Alcohol intake: current Alcohol intake frequency: a few times a month Patient Tobacco Use Status: Never used Tobacco service: No Current occupational status: disabled Meds Allergies Allergy/AdvReac Type Severity Reaction Status Date / Time No Known Allergies Allergy Unverified 08/06/20 08:57 [No Known Allergies*] Active Medications: Current Medications Generic Name Dose Route Start Last Admin Trade Name Freq PRN Reason Stop Dose Admin Acetaminophen 650 mg 10/30/20 01:06 Acetaminophen 325 Mg Tablet PO Q6H PRN Pain, Mild (Pain Scale 1-3) Aspirin 81 mg 10/30/20 01:06 10/30/20 22:08 Aspirin Enteric Coated 81 Mg Tablet. PO 81 mg BEDTIME [facility] Administration Atorvastatin Calcium 20 mg 10/30/20 21:00 10/30/20 22:08 Atorvastatin Calcium 20 Mg Tablet PO 20 mg BEDTIME [facility] Administration Cilostazol 100 mg 10/30/20 12:00 10/30/20 22:08 Cilostazol 100 Mg Tablet PO 100 mg BID@1200,2100 [facility] Administration Dexamethasone Sodium Phosphate 6 mg 10/30/20 09:00 10/30/20 09:00 Dexamethasone Sod Phosphate 4 Mg/Ml Vial IVPUSH 6 mg DAILY [facility] Administration Dextrose 25 gm 10/30/20 01:06 Dextrose 50 % 25 Gm/50 Ml Vial IVPUSH Q15M PRN per Hypoglycemia Standing Ord. Protocol Docusate Sodium 100 mg 10/30/20 01:06 Docusate Sodium 100 Mg Capsule PO DAILY PRN Constipation Glucose 15 gm 10/30/20 01:06 Glucose Gel 15 Gm Gel..Gram. PO Q15M PRN per Hypoglycemia Standing Ord. Protocol Heparin Sodium (Porcine) 5,000 unit 10/30/20 01:06 10/30/20 15:30 Heparin Sodium,Porcine 5,000 Unit/Ml Vial SUBCUT 5,000 unit Q12H [facility] Administration Hydrochlorothiazide 25 mg 10/30/20 09:00 10/30/20 09:02 Hydrochlorothiazide 25 Mg Tablet PO 25 mg DAILY [facility] Administration Sodium Chloride 1,000 mls @ 100 mls/hr 10/30/20 01:06 10/30/20 16:18 Ns IVCONT 100 mls/hr .Q10H [facility] Administration Remdesivir 100 mg/ Sodium 230 mls @ 115 mls/hr 10/31/20 20:00 Chloride IV 11/03/20 21:59 Q24H [facility] Insulin Glargine 48 unit 10/30/20 01:06 10/30/20 22:08 Insulin Glargine,Hum.Rec.Anlog 100 Unit/Ml 10 Ml Vial SUBCUT 48 unit BEDTIME [facility] Administration Insulin Human Lispro 0 unit 10/30/20 07:30 10/30/20 22:09 Insulin Lispro 100 Unit/Ml 3 Ml Vial SUBCUT 6 unit QIDACHS [facility] Administration Protocol Latanoprost 1 drop 10/30/20 21:00 10/30/20 22:46 Latanoprost 0.005 % Ophth Lori 2.5 Ml Drops EYE-BOTH Not Given BEDTIME [facility] Lisinopril 20 mg 10/30/20 09:00 10/30/20 09:01 Lisinopril 20 Mg Tablet PO Not Given DAILY [facility] Protocol Ondansetron HCl 4 mg 10/30/20 01:06 Ondansetron Hcl 4 Mg/2 Ml Vial IVPUSH Q8H PRN Nausea and Vomiting Pharmacy Consult 1 each 10/29/20 15:29 Consult Rx Perform Med Rec MISCELLANE ONCE PRN Consult order Sodium Bicarbonate 650 mg 10/30/20 09:00 10/30/20 22:07 Sodium Bicarbonate 650 Mg Tablet PO 650 mg TID [facility] Administration Sodium Chloride 3 ml 10/30/20 01:06 10/30/20 16:18 0.9 % Sodium Chloride Flush 3 Ml Syringe IVFLUSH 3 ml QSHIFT [facility] Administration Home Medications Medication Instructions Recorded Confirmed Last Taken Type blood sugar diagnostic #10 ea 01/30/20 08/06/20 Unknown History cilostazol 100 mg tablet 100 mg PO BID@1200,2100 01/30/20 10/29/20 Unknown History insulin aspart U-100 100 unit/mL See Rx Instructions SUBCUT .COMPLEX 01/30/20 10/29/20 Unknown History (3 mL) subcutaneous pen insulin glargine 100 unit/mL (3 48 unit SUBCUT BEDTIME 01/30/20 10/29/20 Unknown History mL) subcutaneous pen lancets 33 gauge #100 ea 01/30/20 08/06/20 Unknown History lisinopril 20 mg tablet 20 mg PO DAILY 01/30/20 10/29/20 Unknown History pen needle, diabetic 32 gauge x #50 ea 01/30/20 08/06/20 Unknown History simvastatin 40 mg tablet 40 mg PO BEDTIME 01/30/20 10/29/20 Unknown History aspirin 81 mg tablet,delayed 1 tab PO BEDTIME 10/29/20 10/29/20 Unknown History release chlorthalidone 25 mg tablet 1 tab PO QAM 10/29/20 10/29/20 Unknown History latanoprost 0.005 % eye drops 1 drp OPHTHALMIC (EYE) BEDTIME 10/29/20 10/29/20 Unknown History Physical Exam Vital Signs: Vital Signs: Last Vital Signs Temp 97.8 F 10/30/20 20:00 Pulse 84 10/30/20 20:00 Resp 20 10/30/20 20:00 BP 96/53 L 10/30/20 20:00 Pulse Ox 92 10/30/20 20:00 Body Mass Index 35.5 Const: General: cooperative HENMT: Head: Yes normal to inspection Resp: Effort & Inspection: tachypneic Cardio: Rate: regular rate Rhythm: regular rhythm GI: Palpation (GI): nontender Skin: General skin exam: no rashes or lesions noted Results Labs CBC & Chem 7: 11/11/20 05:15 11/11/20 05:15 Labs: Short CBC 10/30/20 Range/Units 10:14 WBC 5.5 (4.8-10.8) X10*3/uL Hgb 15.1 (14.0-18.0) g/dl Hct 46.7 (42-52) % Plt Count 85 L (160-400) X10*3/uL BMP 10/30/20 10:14 Sodium 132 L Potassium 5.1 Chloride 104 Carbon Dioxide 18 L BUN 58 H Creatinine 2.05 H Calcium 8.1 L Liver Function 10/30/20 Range/Units 17:36 Total Bilirubin 0.7 (0.0-1.0) mg/dL Direct Bilirubin 0.4 (0.0-0.5) mg/dL AST 109 H (5-37) U/L ALT 51 H (0-40) U/L Alkaline Phosphatase 50 (39-117) U/L Albumin 3.6 (3.5-5.0) g/dL Microbiology Microbiology Results: Microbiology 10/29/20 16:41 Blood - Venous Blood Culture - Preliminary No growth after 24 hours. 10/29/20 16:41 Blood - Venous Blood Culture - Preliminary No growth after 24 hours. Assessment and Plan (1) Acute respiratory failure with hypoxia: Status: Acute There is concern over respiratory failure with COVID He has likely five days symptoms Would use Remdesivir Use Dexamethasone Oxygen as needed (2) COVID-19: Status: Acute (3) Obesity due to excess calories: Qualifiers: Body mass index: BMI 40.0-44.9 Obesity classification: adult class 3 (BMI >= 40) Serious obesity comorbidity presence: with serious comorbidity Qualified Code(s): E66.01 - Morbid (severe) obesity due to excess calories; Z68.41 - Body mass index [BMI]40.0-44.9, adult Status: Acute (4) Type 2 diabetes mellitus with chronic kidney disease: Qualifiers: Chronic kidney disease stage: stage 3 (moderate) Chronic kidney disease stage 3 subtype: unspecified whether 3a or 3b Diabetes mellitus battery checker insulin use: without group home use Qualified Code(s): E11.22 - Type 2 diabetes mellitus with diabetic chronic kidney disease; N18.30 - Chronic kidney disease, stage 3 unspecified Status: Acute
[2020-10-31] VITALS (10 sets, daily range): BP systolic 91–122; BP diastolic 59–96; PULSE 81–88; RESP 16–25; TEMP 36.1–36.4; O2SAT 70–96
[2020-10-31] MEDS: Heparin Sodium,Porcine 5,000 UNIT/ML VIAL 5000 UNIT SUBCUT ×2 (02:47→12:59)
[2020-10-31] MEDS: 0.9 % Sodium Chloride Flush 3 ML SYRINGE IVFLUSH ×4 (02:47→23:16)
[2020-10-31 06:51] LABS: Hematocrit 46.8 % (42-52); Hemoglobin 15.4 g/dl (14.0-18.0); Mean Corpuscular HGB Conc 32.9 g/dl (31.0-36.0); Mean Corpuscular Hemoglobin 29.4 pg (27.0-33.0); Mean Corpuscular Volume 89.5 fL (80-98); Mean Platelet Volume 12.6 fL (9.4-12.4); Red Blood Count 5.23 X10*6/uL (4.60-5.80); Red Cell Distribution Width 14.5 % (11.0-16.0); White Blood Count 7.9 X10*3/uL (4.8-10.8)
[2020-10-31 07:02] LABS: Platelet Count 99 X10*3/uL (160-400)
[2020-10-31 07:06] LABS: Anion Gap 14 (12-20); Blood Urea Nitrogen 56 mg/dL (9-16); C Reactive Protein 5.57 mg/dL (< or = 0.50); Calcium 8.6 mg/dL (8.4-10.2); Carbon Dioxide 18 mmol/L (22-29); Chloride 107 mmol/L (96-108); Creatinine Clr Calc Pharmacy 41.9; Estimated Glomerular Filt Rate 38; Glucose Random 222 mg/dL (60-115); Lactate Dehydrogenase 523 U/L (118-273); Potassium 5.1 mmol/L (3.3-5.1); Sodium 134 mmol/L (135-145)
[2020-10-31 07:46] LABS: Glucose, Whole Blood 207 mg/dL (60-115)
[2020-10-31] MEDS: dexAMETHasone sod phosphate 4 MG/ML VIAL 6 MG IVPUSH (08:34)
[2020-10-31] MEDS: Sodium Bicarbonate 650 MG TABLET PO ×3 (08:34→21:11)
[2020-10-31] MEDS: Insulin Lispro 100 UNIT/ML 3 ML VIAL SUBCUT ×4 (08:35→21:12)
[2020-10-31] MEDS: lisinopriL 20 MG TABLET PO (08:35)
[2020-10-31] MEDS: hydroCHLOROthiazide 25 MG TABLET PO (08:35)
[2020-10-31 11:24] LABS: Glucose, Whole Blood 241 mg/dL (60-115)
--- NOTE | 2020-10-31 11:25 | MHC.CM.PN ---
Patient COVID +: Made connection with patient via outdoor pursuits instructor: able to confirm and address, patient indicated immediately that he was feeling horribly via outdoor pursuits instructor and was not well enough to maintain discussion. Call terminated pleasantly by patient. Will be required to reapproach when patient is feeling better. CM to follow.
[2020-10-31] MEDS: cilostazoL 100 MG TABLET PO ×2 (11:38→21:11)
--- NOTE | 2020-10-31 12:48 | HO.PM.IMPN ---
Subjective Subjective Date of Service: 10/31/20 Interval History: The patient seen and evaluated this morning Sitting in his chair having breakfast Increased oxygen needs overnight, complaining of shortness of breath denies any major complaints but very stressed out about No reported other overnight events Review of Systems No fever, chills No chest pain, palpitation Has shortness of breath and coughing No abdominal pain, nausea or vomiting No urinary symptoms No any rash or wounds Physical Exam Vital Signs: Vital Signs: Last Vital Signs Temp 97.6 F 10/31/20 08:00 Pulse 88 10/31/20 12:00 Resp 20 10/31/20 12:00 BP 91/69 10/31/20 12:00 Pulse Ox 96 10/31/20 12:00 Body Mass Index 41.0 Const: Other: Constitutional : Alert, disoriented, in mild respiratory distress Neck : Normal inspection, Supple Cardiovascular : RRR, S1 S2, no lower extremity edema Respiratory : Moving bilateral chest wall, mildly tachypnea, on nasal cannula Gastrointestinal: soft, lax, Normal bowel sounds, Non tender Skin : Warm, Dry Neurological : Alert & disoriented, No focal deficit Objective Data Active Medications Acetaminophen (Acetaminophen 325 Mg Tablet) 650 mg PO Q6H PRN PRN Reason: Pain, Mild (Pain Scale 1-3) Aspirin (Aspirin Enteric Coated 81 Mg Tablet.) 81 mg PO BEDTIME [facility] Last Admin: 10/30/20 22:08 Dose: 81 mg Documented by: DANIELLE Atorvastatin Calcium (Atorvastatin Calcium 20 Mg Tablet) 20 mg PO BEDTIME [facility] Last Admin: 10/30/20 22:08 Dose: 20 mg Documented by: DANIELLE Cilostazol (Cilostazol 100 Mg Tablet) 100 mg PO BID@1200,2100 [facility] Last Admin: 10/31/20 11:38 Dose: 100 mg Documented by: SUGAR Dexamethasone Sodium Phosphate (Dexamethasone Sod Phosphate 4 Mg/Ml Vial) 6 mg IVPUSH DAILY [facility] Last Admin: 10/31/20 08:34 Dose: 6 mg Documented by: SUGAR Dextrose (Dextrose 50 % 25 Gm/50 Ml Vial) 25 gm IVPUSH Q15M PRN; Protocol PRN Reason: per Hypoglycemia Standing Ord. Docusate Sodium (Docusate Sodium 100 Mg Capsule) 100 mg PO DAILY PRN PRN Reason: Constipation Glucose (Glucose Gel 15 Gm Gel..Gram.) 15 gm PO Q15M PRN; Protocol PRN Reason: per Hypoglycemia Standing Ord. Heparin Sodium (Porcine) (Heparin Sodium,Porcine 5,000 Unit/Ml Vial) 5,000 unit SUBCUT Q12H [facility] Last Admin: 10/31/20 02:47 Dose: 5,000 unit Documented by: DANIELLE Hydrochlorothiazide (Hydrochlorothiazide 25 Mg Tablet) 25 mg PO DAILY [facility] Last Admin: 10/31/20 08:35 Dose: 25 mg Documented by: SUGAR Sodium Chloride (Ns) 1,000 mls @ 100 mls/hr IVCONT .Q10H [facility] Last Infusion: 10/31/20 11:38 Dose: 0 mls/hr Documented by: SUGAR Remdesivir 100 mg/ Sodium (Chloride) 230 mls @ 115 mls/hr IV Q24H [facility] Stop: 11/03/20 21:59 Insulin Glargine (Insulin Glargine,Hum.Rec.Anlog 100 Unit/Ml 10 Ml Vial) 48 unit SUBCUT BEDTIME [facility] Last Admin: 10/30/20 22:08 Dose: 48 unit Documented by: DANIELLE Insulin Human Lispro (Insulin Lispro 100 Unit/Ml 3 Ml Vial) 0 unit SUBCUT QIDACHS [facility]; Protocol Last Admin: 10/31/20 11:37 Dose: 4 unit Documented by: SUGAR Latanoprost (Latanoprost 0.005 % Ophth Lori 2.5 Ml Drops) 1 drop EYE-BOTH BEDTIME [facility] Last Admin: 10/30/20 22:46 Dose: Not Given Documented by: DANIELLE Non-Admin Reason: unavailable Lisinopril (Lisinopril 20 Mg Tablet) 20 mg PO DAILY [facility]; Protocol Last Admin: 10/31/20 08:35 Dose: 20 mg Documented by: SUGAR Ondansetron HCl (Ondansetron Hcl 4 Mg/2 Ml Vial) 4 mg IVPUSH Q8H PRN PRN Reason: Nausea and Vomiting Pharmacy Consult (Consult Rx Perform Med Rec) 1 each MISCELLANE ONCE PRN PRN Reason: Consult order Sodium Bicarbonate (Sodium Bicarbonate 650 Mg Tablet) 650 mg PO TID [facility] Last Admin: 10/31/20 08:34 Dose: 650 mg Documented by: SUGAR Sodium Chloride (0.9 % Sodium Chloride Flush 3 Ml Syringe) 3 ml IVFLUSH QSHIFT [facility] Last Admin: 10/31/20 08:34 Dose: 3 ml Documented by: SUGAR Labs CBC & Chem 7: 10/31/20 06:18 10/31/20 06:18 Labs: Laboratory Results - last 24 hr 10/30/20 10/30/20 10/30/20 13:26 14:45 16:43 MCV MCH MCHC RDW Plt Count MPV Absolute Nucleated RBC Nucleated RBC % (auto) Anion Gap Estim Creat Clear Calc Estimated GFR POC Glucose 130 H 168 H 247 H Random Glucose Calcium Total Bilirubin Direct Bilirubin AST ALT Alkaline Phosphatase Lactate Dehydrogenase C-Reactive Protein Total Protein Albumin 10/30/20 10/30/20 10/31/20 17:36 20:55 06:18 MCV 89.5 MCH 29.4 MCHC 32.9 RDW 14.5 Plt Count 99 L MPV 12.6 H Absolute Nucleated RBC 0.000 Nucleated RBC % (auto) 0.0 Anion Gap Estim Creat Clear Calc Estimated GFR POC Glucose 249 H Random Glucose Calcium Total Bilirubin 0.7 Direct Bilirubin 0.4 AST 109 H ALT 51 H Alkaline Phosphatase 50 Lactate Dehydrogenase C-Reactive Protein Total Protein 6.4 L Albumin 3.6 10/31/20 10/31/20 10/31/20 06:18 07:37 11:08 MCV MCH MCHC RDW Plt Count MPV Absolute Nucleated RBC Nucleated RBC % (auto) Anion Gap 14 Estim Creat Clear Calc 41.9 Estimated GFR 38 POC Glucose 207 H 241 H Random Glucose 222 H D Calcium 8.6 D Total Bilirubin Direct Bilirubin AST ALT Alkaline Phosphatase Lactate Dehydrogenase 523 H C-Reactive Protein 5.57 H Total Protein Albumin Microbiology Microbiology Results: Microbiology 10/29/20 16:41 Blood Culture - Preliminary Blood - Venous No growth after 24 hours. 10/29/20 16:41 Blood Culture - Preliminary Blood - Venous No growth after 24 hours. Assessment and Plan (1) Acute respiratory failure with hypoxia: Status: Acute (2) COVID-19: Status: Acute Assessment and Plan: 79-year-old male presents to the hospital with hypoxia found to have COVID-19 pneumonia # acute hypoxic respiratory failure # secondary to COVID-19 Continue on dexamethasone day3 ID input appreciated, start remdesivir day 2 Wean oxygen down as tolerated monitor respiratory status # diabetes continue home insulin low-dose sliding scale diabetic diet # hyponatremia Improving at 01:34 # acute kidney injury # Metabolic acidosis Creatinine improved to 1.7 around baseline Continue sodium bicarb Avoid nephrotoxic medications Follow BMP # hypertension continue home medications DVT prophylaxis Heparin subQ Quality Stroke Does the patient have a stroke diagnosis?: No VTE Prior VTE?: No VTE Risk Level:: Medical - moderate - high VTE Device Contraindication: Treatment Not Indicated VTE Drug Contraindication: N/A - Med Ordered
[2020-10-31 15:59] LABS: Glucose, Whole Blood 254 mg/dL (60-115)
[2020-10-31] MEDS: 0.9 % Sodium Chloride 1,000 ML 100 ML IVCONT (16:36)
[2020-10-31 19:56] LABS: Glucose, Whole Blood 328 mg/dL (60-115)
[2020-10-31] MEDS: Remdesivir 100 MG in 0.9 % Sodium Chloride 230 ML 115 MG IV (21:10)
[2020-10-31] MEDS: Aspirin Enteric Coated 81 MG TABLET.DR PO (21:11)
[2020-10-31] MEDS: Latanoprost 0.005 % Ophth Sol 2.5 ML DROPS 1 DROP EYE-BOTH (21:11)
[2020-10-31] MEDS: Atorvastatin Calcium 20 MG TABLET PO (21:12)
[2020-10-31] MEDS: Insulin Glargine,Hum.rec.anlog 100 UNIT/ML 10 ML VIAL 48 UNIT SUBCUT (21:16)
[2020-10-31] MEDS: Acetaminophen 325 MG TABLET 650 MG PO (23:12)
[2020-11-01] VITALS (16 sets, daily range): BP systolic 89–121; BP diastolic 42–68; PULSE 72–98; RESP 18–26; TEMP 36.1–36.6; O2SAT 82–97
[2020-11-01] MEDS: Heparin Sodium,Porcine 5,000 UNIT/ML VIAL 5000 UNIT SUBCUT ×3 (01:48→23:09)
--- NOTE | 2020-11-01 03:48 | PC.NURSE ---
late entry for 2134. pt with moderate to heavy assist oob to bsc by server support technician. instructed to not get up without help and verbalizes understanding. server support technician left room to get supplies. shortly after loud crash heard in room by this RN. upon entry to room pt on floor laying on his right side. call for help with server support technician entry to room. pt denies hitting head or pain. bsc with front left rubber protector dislodged & on floor. iv double pump (top pump dislodged & on floor dislodging iv tubing from IV bag which was leaking on floor. pt moving all extremities & digits. pt agreeable to be assisted from floor, once wet floor dried & pt dried with fresh kim, assisted to recliner, pants requested by pt & given (able to lift legs to place in pant legs). head to toe no injury noted then from recliner pivot 2 assist to bed. o2 mike tubing remained in place throughout episode with COVID + sats 88-90% once in bed diplomatic interpreter requested & in room, pt admits he tried to get up without help, was pushing up from commode which tipped. when assked if he was having pain he states his hands hurt from catching himself in the fall. hand grasps strong/equal holds arms out with ease, moves wrists in all directions and alternating fingers to thumb with ease. reported to Dr. Strong & Angelica Barrera nsg supv. and medicated with tylenol 650mg po & requested resp tx for cpap with sleep. sleeping on recheck. throughout shift until this point pt with no other complaints. hourly rounds continued call perez in reach & pt verbalizes understanding to not get up without help.
[2020-11-01] MEDS: 0.9 % Sodium Chloride 1,000 ML 100 ML IVCONT (04:55)
[2020-11-01 06:46] LABS: Hematocrit 44.6 % (42-52); Hemoglobin 14.7 g/dl (14.0-18.0); Mean Corpuscular Hemoglobin 29.3 pg (27.0-33.0); Mean Corpuscular Volume 88.8 fL (80-98); Mean Platelet Volume 12.2 fL (9.4-12.4); Red Blood Count 5.02 X10*6/uL (4.60-5.80); Red Cell Distribution Width 14.5 % (11.0-16.0); White Blood Count 7.9 X10*3/uL (4.8-10.8)
[2020-11-01 07:17] LABS: Platelet Count 94 X10*3/uL (160-400)
[2020-11-01 07:19] LABS: Anion Gap 15 (12-20); Blood Urea Nitrogen 54 mg/dL (9-16); Carbon Dioxide 18 mmol/L (22-29); Chloride 107 mmol/L (96-108); Creatinine Clr Calc Pharmacy 43.2; Estimated Glomerular Filt Rate 40; Glucose Random 195 mg/dL (60-115); Potassium 4.5 mmol/L (3.3-5.1); Sodium 135 mmol/L (135-145)
[2020-11-01 07:47] LABS: Glucose, Whole Blood 232 mg/dL (60-115)
[2020-11-01] MEDS: Insulin Lispro 100 UNIT/ML 3 ML VIAL SUBCUT ×4 (08:53→21:17)
[2020-11-01] MEDS: hydroCHLOROthiazide 25 MG TABLET PO (09:13)
[2020-11-01] MEDS: Sodium Bicarbonate 650 MG TABLET PO ×3 (09:13→20:33)
[2020-11-01] MEDS: lisinopriL 20 MG TABLET PO (09:13)
[2020-11-01] MEDS: dexAMETHasone sod phosphate 4 MG/ML VIAL 6 MG IVPUSH (09:13)
[2020-11-01] MEDS: 0.9 % Sodium Chloride Flush 3 ML SYRINGE IVFLUSH ×3 (09:13→23:10)
--- NOTE | 2020-11-01 09:32 | MHC.CM.PN ---
Patient sounded very frail over the phone (EXT. [id number])(COVID POSITIVE); CM spoke with Daughter/HCP/Grace @ [phone]. Patient lives alone in an apartment and was receiving [facility] services; the PCP relocated 3 weeks ago and Patient's Daughter/HCP/Aaliyah has been filling in as PLY CUTTER and is interested in becoming Patient's new PLY CUTTER. Patient has a walker from a previous condition, but does not need/use it now. Patient is interested in a referral to [facility] (will need [facility] auth). Goal is home with new VNA and resume PL[facility] C[facility] and CM has initiated and will follow for dc planning. PCP is through [facility].
[2020-11-01 11:38] LABS: Glucose, Whole Blood 168 mg/dL (60-115)
--- NOTE | 2020-11-01 12:02 | P.CDIC_ITS ---
CDI Concurrent Query Documentation Clarification: PHYSICIAN'S DOCUMENTATION REQUEST Date of Query: 11/01/20 1203 Patient Name: David Blanton Admit Date: 10/29/20 Dear Doctor, A review of the medical record indicates additional documentation may be needed. Please review below and update the documentation accordingly. Clinical Indicators: The following clinical information was noted in the record: Risk Factors/Clinical Indicators/Treatments BUN 54/Creatinine 2.2 GFR 28 Creatinine around 1.7 baseline Please clarify which of the following accurately represents the patient's renal status: * Acute renal failure with suspected ATN * Acute renal failure with other pathology (medullary, papillary, or cortical necrosis) * Acute renal failure (with type, appropriate) on Chronic Kidney Disease (CKD) - see criteria * CKD, please provide stage - see criteria * ESRD - CKD V now requiring permanent dialysis and/or transplant * Other (please specify) * Unable to determine Criteria for KYM* Stages of Chronic Kidney Disease* 1. Increase in serum creatinine by ? 0.3 mg/dL Level Descrip tion GFR (?26.5 micromol/L) within 48 hours, or G1 Normal or High > 90 2. Increase in serum creatinine to ?1.5 times baseline, G2 Mildly decreased 60 ? 89 which is known or presumed to have occurred within 7 days, or G3a Mildly to moderately decreased 45 ? 59 3. Urine volume <0.5 mL/kg/hour for six hours G3b Moderately to severely decreased 30 - 44 G4 Severely decreased 15 ? 29 G5 Kidney failure < 15 *Source: Kidney Disease: Improving Global Outcomes (KDIGO) 2012 Use of terms such as suspected, likely, concern for, or probable (associated with a specific diagnosis that is being evaluated, monitored, or treated as if it exists) are acceptable and can be coded in the inpatient setting, when documented at the time of discharge. Thank you, Crystal Fagan RN Extension: [phone] Please use your independent medical judgment in providing your response. THIS QUERY IS PART OF THE PERMANENT MEDICAL RECORD Provider Response: Other Other Diagnosis: Acute kidney injury on CKD stage 3
[2020-11-01] MEDS: cilostazoL 100 MG TABLET PO (12:35)
--- NOTE | 2020-11-01 15:39 | P.PNIM_ITS ---
Subjective Subjective Date of Service: 11/01/20 Interval History: The patient seen and evaluated this morning Increased oxygen requirement overnight to high-flow this morning Patient is more lethargic and tired, anxious about how things are going You had a fall overnight while moving in his room without supervision or permission No reported other overnight events Review of Systems Complaining of being tired but denies fever Reporting shortness of breath, coughing Constipation No urinary symptoms Review of Systems: Yes all other systems are reviewed and are negative Physical Exam Vital Signs: Vital Signs: Last Vital Signs Temp 97.4 F 11/01/20 15:16 Pulse 98 11/01/20 15:16 Resp 20 11/01/20 15:16 BP 103/68 11/01/20 15:16 Pulse Ox 87 L 11/01/20 15:16 Body Mass Index 41.0 Const: Other: Constitutional : Alert, disoriented, looks distressed and tired, in respiratory distress Neck : Normal inspection, Supple Cardiovascular : RRR, S1 S2, no lower extremity edema Respiratory : Moving bilateral chest wall, mildly tachypnea, on nasal cannula Gastrointestinal: soft, lax, Normal bowel sounds, Non tender Skin : Warm, Dry Neurological : Alert & disoriented, No focal deficit Objective Data Active Medications Acetaminophen (Acetaminophen 325 Mg Tablet) 650 mg PO Q6H PRN PRN Reason: Pain, Mild (Pain Scale 1-3) Last Admin: 10/31/20 23:12 Dose: 650 mg Documented by: DANIELLE Aspirin (Aspirin Enteric Coated 81 Mg Tablet.) 81 mg PO BEDTIME [facility] Last Admin: 10/31/20 21:11 Dose: 81 mg Documented by: DANIELLE Atorvastatin Calcium (Atorvastatin Calcium 20 Mg Tablet) 20 mg PO BEDTIME [facility] Last Admin: 10/31/20 21:12 Dose: 20 mg Documented by: DANIELLE Cilostazol (Cilostazol 100 Mg Tablet) 100 mg PO BID@1200,2100 [facility] Last Admin: 11/01/20 12:35 Dose: 100 mg Documented by: MANUELA Dexamethasone Sodium Phosphate (Dexamethasone Sod Phosphate 4 Mg/Ml Vial) 6 mg IVPUSH DAILY [facility] Last Admin: 11/01/20 09:13 Dose: 6 mg Documented by: MANUELA Dextrose (Dextrose 50 % 25 Gm/50 Ml Vial) 25 gm IVPUSH Q15M PRN; Protocol PRN Reason: per Hypoglycemia Standing Ord. Docusate Sodium (Docusate Sodium 100 Mg Capsule) 100 mg PO DAILY PRN PRN Reason: Constipation Glucose (Glucose Gel 15 Gm Gel..Gram.) 15 gm PO Q15M PRN; Protocol PRN Reason: per Hypoglycemia Standing Ord. Heparin Sodium (Porcine) (Heparin Sodium,Porcine 5,000 Unit/Ml Vial) 5,000 unit SUBCUT Q12H [facility] Last Admin: 11/01/20 12:36 Dose: 5,000 unit Documented by: MANUELA Hydrochlorothiazide (Hydrochlorothiazide 25 Mg Tablet) 25 mg PO DAILY [facility] Last Admin: 11/01/20 09:13 Dose: 25 mg Documented by: MANUELA Sodium Chloride (Ns) 1,000 mls @ 100 mls/hr IVCONT .Q10H [facility] Last Admin: 11/01/20 04:55 Dose: 100 mls/hr Documented by: DANIELLE Remdesivir 100 mg/ Sodium (Chloride) 230 mls @ 115 mls/hr IV Q24H [facility] Stop: 11/03/20 21:59 Last Infusion: 10/31/20 23:10 Dose: 0 mls/hr Documented by: DANIELLE Insulin Glargine (Insulin Glargine,Hum.Rec.Anlog 100 Unit/Ml 10 Ml Vial) 48 unit SUBCUT BEDTIME [facility] Last Admin: 10/31/20 21:16 Dose: 48 unit Documented by: DANIELLE Insulin Human Lispro (Insulin Lispro 100 Unit/Ml 3 Ml Vial) 0 unit SUBCUT QIDACHS [facility]; Protocol Last Admin: 11/01/20 12:35 Dose: 2 unit Documented by: MANUELA Latanoprost (Latanoprost 0.005 % Ophth Lori 2.5 Ml Drops) 1 drop EYE-BOTH BEDTIME [facility] Last Admin: 10/31/20 21:11 Dose: 1 drop Documented by: DANIELLE Lisinopril (Lisinopril 20 Mg Tablet) 20 mg PO DAILY [facility]; Protocol Last Admin: 11/01/20 09:13 Dose: 20 mg Documented by: MANUELA Ondansetron HCl (Ondansetron Hcl 4 Mg/2 Ml Vial) 4 mg IVPUSH Q8H PRN PRN Reason: Nausea and Vomiting Pharmacy Consult (Consult Rx Perform Med Rec) 1 each MISCELLANE ONCE PRN PRN Reason: Consult order Sodium Bicarbonate (Sodium Bicarbonate 650 Mg Tablet) 650 mg PO TID [facility] Last Admin: 11/01/20 09:13 Dose: 650 mg Documented by: MANUELA Sodium Chloride (0.9 % Sodium Chloride Flush 3 Ml Syringe) 3 ml IVFLUSH QSHIFT [facility] Last Admin: 11/01/20 09:13 Dose: 3 ml Documented by: MANUELA Labs CBC & Chem 7: 11/01/20 06:06 11/01/20 06:06 Labs: Laboratory Results - last 24 hr 10/31/20 10/31/20 11/01/20 15:54 19:51 06:06 MCV 88.8 MCH 29.3 MCHC 33.0 RDW 14.5 Plt Count 94 L MPV 12.2 Absolute Nucleated RBC 0.000 Nucleated RBC % (auto) 0.0 Anion Gap Estim Creat Clear Calc Estimated GFR POC Glucose 254 H 328 H Random Glucose Calcium 11/01/20 11/01/20 11/01/20 06:06 07:34 11:28 MCV MCH MCHC RDW Plt Count MPV Absolute Nucleated RBC Nucleated RBC % (auto) Anion Gap 15 Estim Creat Clear Calc 43.2 Estimated GFR 40 POC Glucose 232 H 168 H Random Glucose 195 H Calcium 8.0 L D Microbiology Microbiology Results: Microbiology 10/29/20 16:41 Blood Culture - Preliminary Blood - Venous No growth after 48 hours. 10/29/20 16:41 Blood Culture - Preliminary Blood - Venous No growth after 48 hours. Assessment and Plan (1) Acute respiratory failure with hypoxia: Status: Acute (2) COVID-19: Status: Acute (3) Type 2 diabetes mellitus with diabetic polyneuropathy: Status: Acute Assessment and Plan: 79-year-old male presents to the hospital with hypoxia found to have COVID-19 pneumonia # acute hypoxic respiratory failure # secondary to COVID-19 Increased oxygen requirement to high-flow oxygen this morning, he needed BiPAP overnight, seems overall worsening and might need to go down to ICU for BiPAP and possible intubation Continue on dexamethasone day4 ID input appreciated, start remdesivir day 3 Discussed with ICU to transfer the patient to the unit monitor respiratory status # diabetes continue home insulin low-dose sliding scale diabetic diet # hyponatremia Improving 135 # acute kidney injury # Metabolic acidosis Creatinine improved to 1.7 around baseline Continue sodium bicarb, CO3 at 18 Avoid nephrotoxic medications Follow BMP # hypertension continue home medications DVT prophylaxis Heparin subQ Quality Stroke Does the patient have a stroke diagnosis?: No VTE Prior VTE?: No VTE Risk Level:: Medical - moderate - high VTE Device Contraindication: Treatment Not Indicated VTE Drug Contraindication: N/A - Med Ordered
[2020-11-01 16:12] LABS: Glucose, Whole Blood 218 mg/dL (60-115)
[2020-11-01] MEDS: Furosemide 20 MG/2 ML VIAL IVPUSH (16:22)
--- NOTE | 2020-11-01 17:37 | PM.CCN ---
Critical Care Event Note Summary Date of Service: 11/01/20 Code activated: No Narrative: 79-year-old gentleman with underlying obesity, hypertension, and diabetes mellitus admitted on 10/29/2020 with progressive dyspnea, secondary to acute hypoxic respiratory failure secondary to COVID-19. Initially admitted to general medical [facility]. Patient has been treated with dexamethasone and remdesivir. His hospital course is significant for progressively increasing FiO2 requirement, now failing high-flow nasal cannula and requiring noninvasive positive pressure ventilatory support. Patient has been transferred to the intensive care unit for further monitoring and management. Critical Care Time (minutes): 0
--- NOTE | 2020-11-01 17:53 | PC.NURSE ---
Pt A&Ox3 transfered to ICU AT 1715, NSR PVC and PAC, VSS except SaO2 93% on BIPAP 12/6 FiO2 70% I:E 1:1 rate set 16, RR 25-30, Vt 1100ml VE 28-30L/min. ABG could not be obtained. VBG to be collected by phlebotomy. Pt voided 300ml clear yellow urine in urinal. Denies pain. Bed locked and in lowest position. Call perez in reach. Armenian speaking only.
[2020-11-01 18:27] LABS: VBG HCO3 15 mmol/L (22-26); VBG pCO2 28 mmHg; VBG pH 7.33 (7.32-7.43); VBG pO2 33 mmHg
[2020-11-01 19:33] LABS: Anion Gap 15 (12-20); Blood Urea Nitrogen 48 mg/dL (9-16); Calcium 8.1 mg/dL (8.4-10.2); Carbon Dioxide 18 mmol/L (22-29); Chloride 107 mmol/L (96-108); Creatinine Clr Calc Pharmacy 48.7; Estimated Glomerular Filt Rate 46; Glucose Random 211 mg/dL (60-115); Phosphorus 2.1 mg/dL (2.7-4.5); Potassium 4.4 mmol/L (3.3-5.1); Sodium 136 mmol/L (135-145)
[2020-11-01] MEDS: Insulin Glargine,Hum.rec.anlog 100 UNIT/ML 10 ML VIAL 48 UNIT SUBCUT (20:33)
[2020-11-01] MEDS: Aspirin Enteric Coated 81 MG TABLET.DR PO (20:33)
[2020-11-01] MEDS: Remdesivir 100 MG in 0.9 % Sodium Chloride 230 ML 115 MG IV (20:33)
[2020-11-01 21:09] LABS: Glucose, Whole Blood 203 mg/dL (60-115)
[2020-11-01 23:24] LABS: Venous Blood Gas Refer to POC result
[2020-11-02] VITALS (29 sets, daily range): BP systolic 92–145; BP diastolic 41–89; PULSE 69–102; RESP 17–32; TEMP 36.1–36.5; O2SAT 75–97; BMI 39.6
[2020-11-02 05:56] LABS: Venous Blood Gas Refer to POC result
[2020-11-02 05:57] LABS: VBG Base Excess -4.4 mmol/L; VBG HCO3 20 mmol/L (22-26); VBG pCO2 36 mmHg; VBG pH 7.35 (7.32-7.43); VBG pO2 40 mmHg
[2020-11-02 06:10] LABS: MANUAL DIFF FLAG NO
[2020-11-02 06:12] LABS: Basophils Percent Auto 0.1 % (0-2); Hematocrit 45.3 % (42-52); Hemoglobin 15.1 g/dl (14.0-18.0); Imm Gran Abs Auto 0.06 X10*3/uL (0.00-0.03); Imm Gran Pct Auto 0.8 % (0.0-0.4); Lymphocytes Absolute Auto 0.7 X10*3/uL (1.2-4.9); Lymphocytes Percent Auto 9.1 % (20-40); Mean Corpuscular HGB Conc 33.3 g/dl (31.0-36.0); Mean Corpuscular Hemoglobin 29.5 pg (27.0-33.0); Mean Corpuscular Volume 88.5 fL (80-98); Mean Platelet Volume 12.3 fL (9.4-12.4); Monocytes Absolute Auto 0.7 X10*3/uL (0.1-1.2); Monocytes Percent Auto 9.3 % (2-11); Neutrophils Absolute Auto 6.3 X10*3/uL (2.0-8.3); Neutrophils Percent Auto 80.7 % (45-73); Platelet Count 106 X10*3/uL (160-400); Red Blood Count 5.12 X10*6/uL (4.60-5.80); Red Cell Distribution Width 14.5 % (11.0-16.0); White Blood Count 7.8 X10*3/uL (4.8-10.8)
[2020-11-02 06:37] LABS: Alanine Aminotransferase 41 U/L (0-40); Albumin Level 3.4 g/dL (3.5-5.0); Alkaline Phosphatase 52 U/L (39-117); Anion Gap 15 (12-20); Aspartate Amino Transferase 72 U/L (5-37); Bilirubin Total 0.9 mg/dL (0.0-1.0); Blood Urea Nitrogen 47 mg/dL (9-16); Calcium 8.5 mg/dL (8.4-10.2); Carbon Dioxide 20 mmol/L (22-29); Chloride 109 mmol/L (96-108); Creatinine Clr Calc Pharmacy 47.8; Estimated Glomerular Filt Rate 46; Glucose Random 181 mg/dL (60-115); Magnesium 1.9 mg/dL (1.6-2.6); Phosphorus 2.8 mg/dL (2.7-4.5); Potassium 4.7 mmol/L (3.3-5.1); Sodium 139 mmol/L (135-145)
[2020-11-02 07:33] LABS: Glucose, Whole Blood 163 mg/dL (60-115)
[2020-11-02] MEDS: dexAMETHasone sod phosphate 4 MG/ML VIAL 6 MG IVPUSH (10:08)
[2020-11-02] MEDS: Heparin Sodium,Porcine 5,000 UNIT/ML VIAL 5000 UNIT SUBCUT (10:08)
[2020-11-02] MEDS: 0.9 % Sodium Chloride Flush 3 ML SYRINGE IVFLUSH ×3 (10:08→22:20)
[2020-11-02] MEDS: Sodium Bicarbonate 650 MG TABLET PO ×3 (10:08→20:17)
[2020-11-02 11:30] LABS: Glucose, Whole Blood 177 mg/dL (60-115)
[2020-11-02] MEDS: Insulin Lispro 100 UNIT/ML 3 ML VIAL SUBCUT ×3 (11:44→20:36)
--- NOTE | 2020-11-02 13:41 | PM.CCPN ---
Subjective Subjective Date of Service: 11/02/20 Interval History: 79-year-old gentleman with underlying history of obesity, hypertension, diabetes mellitus admitted on 10/29/2020 with progressive dyspnea secondary to acute hypoxic respiratory failure secondary to COVID-19. Patient has been initially monitored on the general medical rodríguez and treated with dexamethasone and remdesivir. His hospital course was significant for progressive increasing supplemental oxygen requirements and on 11/01/2020 he required transferred to intensive care unit for initiation of noninvasive positive pressure ventilation support, as he has failed high-flow nasal cannula. No events overnight. Critical Care Time (minutes): 45 Physical Exam Vital Signs: Vital Signs: Last Vital Signs Temp 97.5 F 11/02/20 12:00 Pulse 77 11/02/20 13:00 Resp 24 H 11/02/20 13:00 BP 118/65 11/02/20 13:00 Pulse Ox 93 11/02/20 13:00 Body Mass Index 39.6 Const: General: no acute distress, alert and awake Nutritional Appearance: obese Eyes: Sclerae: sclerae normal EOM: EOMs intact bilaterally Neck: Neck: Yes no lymphadenopathy, Yes trachea midline and Yes supple Resp: Effort & Inspection: normal respiratory effort (On CPAP) and no respiratory distress Auscultation: crackles (Diffuse bilateral) Cardio: Rate: regular rate Rhythm: regular rhythm Heart sounds: no gallops, no murmurs and no rubs GI: Palpation (GI): Soft to palpation and Other GI palpation findings present ( Nontender) Auscultation: normal bowel sounds Extrem: General: No clubbing, No cyanosis and Yes pedal edema (Trace bilateral) Objective Data Labs CBC & Chem 7: 11/02/20 05:45 11/02/20 05:45 Labs: Laboratory Results - last 24 hr 11/01/20 11/01/20 11/01/20 16:07 18:21 18:21 WBC RBC Hgb Hct MCV MCH MCHC RDW Plt Count MPV Immature Gran % (Auto) Neut % (Auto) Lymph % (Auto) [place] % (Auto) Eos % (Auto) Baso % (Auto) Lymph # (Auto) [place] # (Auto) Eos # (Auto) Baso # (Auto) Abs Immat Gran (auto) Absolute Neuts (auto) Absolute Nucleated RBC Nucleated RBC % (auto) VBG pH 7.33 VBG pCO2 28 VBG pO2 33 VBG HCO3 15 L VBG O2 Saturation 42.0 VBG Base Excess -9.0 Sodium 136 Potassium 4.4 Chloride 107 Carbon Dioxide 18 L Anion Gap 15 BUN 48 H Creatinine 1.49 H Estim Creat Clear Calc 48.7 Estimated GFR 46 POC Glucose 218 H Random Glucose 211 H Calcium 8.1 L Phosphorus 2.1 L Magnesium Total Bilirubin AST ALT Alkaline Phosphatase Total Protein Albumin 11/01/20 11/02/20 11/02/20 20:38 05:45 05:45 WBC 7.8 RBC 5.12 Hgb 15.1 Hct 45.3 MCV 88.5 MCH 29.5 MCHC 33.3 RDW 14.5 Plt Count 106 L MPV 12.3 Immature Gran % (Auto) 0.8 H Neut % (Auto) 80.7 H Lymph % (Auto) 9.1 L [place] % (Auto) 9.3 Eos % (Auto) 0.0 Baso % (Auto) 0.1 Lymph # (Auto) 0.7 L [place] # (Auto) 0.7 Eos # (Auto) 0.0 Baso # (Auto) 0.0 Abs Immat Gran (auto) 0.06 H Absolute Neuts (auto) 6.3 Absolute Nucleated RBC 0.000 Nucleated RBC % (auto) 0.0 VBG pH VBG pCO2 VBG pO2 VBG HCO3 VBG O2 Saturation VBG Base Excess Sodium 139 Potassium 4.7 Chloride 109 H Carbon Dioxide 20 L Anion Gap 15 BUN 47 H Creatinine 1.49 H Estim Creat Clear Calc 47.8 Estimated GFR 46 POC Glucose 203 H Random Glucose 181 H Calcium 8.5 Phosphorus 2.8 Magnesium 1.9 Total Bilirubin 0.9 AST 72 H ALT 41 H Alkaline Phosphatase 52 Total Protein 6.0 L Albumin 3.4 L 11/02/20 11/02/20 11/02/20 05:52 07:28 11:26 WBC RBC Hgb Hct MCV MCH MCHC RDW Plt Count MPV Immature Gran % (Auto) Neut % (Auto) Lymph % (Auto) [place] % (Auto) Eos % (Auto) Baso % (Auto) Lymph # (Auto) [place] # (Auto) Eos # (Auto) Baso # (Auto) Abs Immat Gran (auto) Absolute Neuts (auto) Absolute Nucleated RBC Nucleated RBC % (auto) VBG pH 7.35 VBG pCO2 36 VBG pO2 40 VBG HCO3 20 L VBG O2 Saturation 55.0 VBG Base Excess -4.4 Sodium Potassium Chloride Carbon Dioxide Anion Gap BUN Creatinine Estim Creat Clear Calc Estimated GFR POC Glucose 163 H 177 H Random Glucose Calcium Phosphorus Magnesium Total Bilirubin AST ALT Alkaline Phosphatase Total Protein Albumin Microbiology Microbiology Results: Microbiology 10/29/20 16:41 Blood - Venous Blood Culture - Preliminary No growth after 48 hours. 10/29/20 16:41 Blood - Venous Blood Culture - Preliminary No growth after 48 hours. Quality Stroke Does the patient have a stroke diagnosis?: No VTE Prior VTE?: No VTE Risk Level:: Medical - moderate - high VTE Device Contraindication: Treatment Not Indicated VTE Drug Contraindication: N/A - Med Ordered Progress Note: A&P Assessment and plan (1) Acute respiratory failure with hypoxia: Status: Acute Assessment and Plan: Assessment: 79-year-old gentleman with underlying obesity, hypertension, diabetes mellitus admitted with worsening shortness of breath secondary to COVID-19 ARDS, now requiring noninvasive positive pressure ventilatory support Plan: Neuro: No acute issues. Cardiac: No acute issues. Pulmonary: Acute hypoxic respiratory failure secondary to COVID-19 ARDS. Continue to titrate of noninvasive positive pressure ventilatory support as tolerated. Renal: Acute kidney injury, likely secondary to COVID-19 viral sepsis. Improving. Non oliguric. Continue to monitor renal indices and urine output Endo: No acute issues. GI: No acute issues. ID: COVID 19, treated with dexamethasone and remdesivir. Will add tocilizumab. Heme/Onc: No acute issues. Psych: No acute issues. Miscellaneous: No acute issues. Prophylaxis: Heparin Diet: Diabetic Critical care time spent: 45 (2) Acute respiratory distress syndrome (ARDS) due to COVID-19 virus: Status: Acute (3) Type 2 diabetes mellitus with chronic kidney disease: Status: Acute (4) Essential hypertension: Status: Acute (5) Obesity due to excess calories: Status: Acute (6) Acute kidney injury: Status: Acute
[2020-11-02 16:37] LABS: Glucose, Whole Blood 204 mg/dL (60-115)
[2020-11-02] MEDS: Aspirin Enteric Coated 81 MG TABLET.DR PO (20:17)
[2020-11-02] MEDS: Remdesivir 100 MG in 0.9 % Sodium Chloride 230 ML 115 MG IV (20:17)
[2020-11-02 20:26] LABS: Glucose, Whole Blood 195 mg/dL (60-115)
[2020-11-02] MEDS: Insulin Glargine,Hum.rec.anlog 100 UNIT/ML 10 ML VIAL 48 UNIT SUBCUT (20:35)
[2020-11-02] MEDS: Latanoprost 0.005 % Ophth Sol 2.5 ML DROPS 1 DROP EYE-BOTH (22:19)
[2020-11-03] VITALS (30 sets, daily range): BP systolic 103–156; BP diastolic 26–101; PULSE 70–101; RESP 13–34; TEMP 36.1–37; O2SAT 86–96; BMI 39.1
[2020-11-03] MEDS: Heparin Sodium,Porcine 5,000 UNIT/ML VIAL 5000 UNIT SUBCUT ×2 (01:31→13:07)
[2020-11-03 05:42] LABS: Venous Blood Gas Refer to POC result
[2020-11-03 05:42] LABS: VBG Base Excess -0.9 mmol/L; VBG HCO3 24 mmol/L (22-26); VBG pCO2 40 mmHg; VBG pH 7.38 (7.32-7.43); VBG pO2 34 mmHg
[2020-11-03 05:49] LABS: Basophils Percent Auto 0.1 % (0-2); PLT CLUMP 1; SCAN SMEAR FLAG 1
[2020-11-03 05:51] LABS: Hematocrit 47.9 % (42-52); Hemoglobin 15.7 g/dl (14.0-18.0); Imm Gran Abs Auto 0.12 X10*3/uL (0.00-0.03); Imm Gran Pct Auto 1.4 % (0.0-0.4); Lymphocytes Absolute Auto 0.8 X10*3/uL (1.2-4.9); Lymphocytes Percent Auto 9.5 % (20-40); Mean Corpuscular HGB Conc 32.8 g/dl (31.0-36.0); Mean Corpuscular Hemoglobin 29.2 pg (27.0-33.0); Mean Corpuscular Volume 89.2 fL (80-98); Mean Platelet Volume 11.7 fL (9.4-12.4); Monocytes Absolute Auto 0.9 X10*3/uL (0.1-1.2); Monocytes Percent Auto 9.8 % (2-11); Neutrophils Absolute Auto 6.9 X10*3/uL (2.0-8.3); Neutrophils Percent Auto 79.2 % (45-73); Platelet Count 126 X10*3/uL (160-400); Red Blood Count 5.37 X10*6/uL (4.60-5.80); Red Cell Distribution Width 14.6 % (11.0-16.0); White Blood Count 8.7 X10*3/uL (4.8-10.8)
[2020-11-03 05:52] LABS: MANUAL DIFF FLAG NO
[2020-11-03 06:19] LABS: Albumin Level 3.6 g/dL (3.5-5.0); Anion Gap 16 (12-20); Blood Urea Nitrogen 49 mg/dL (9-16); Calcium 9.1 mg/dL (8.4-10.2); Carbon Dioxide 23 mmol/L (22-29); Chloride 108 mmol/L (96-108); Creatinine Clr Calc Pharmacy 46.6; Estimated Glomerular Filt Rate 45; Glucose Random 226 mg/dL (60-115); Magnesium 2.1 mg/dL (1.6-2.6); Phosphorus 2.8 mg/dL (2.7-4.5); Potassium 5.2 mmol/L (3.3-5.1); Sodium 142 mmol/L (135-145)
[2020-11-03 07:25] LABS: Glucose, Whole Blood 197 mg/dL (60-115)
[2020-11-03] MEDS: dexAMETHasone sod phosphate 4 MG/ML VIAL 6 MG IVPUSH (07:39)
[2020-11-03] MEDS: 0.9 % Sodium Chloride Flush 3 ML SYRINGE IVFLUSH ×2 (07:39→18:20)
[2020-11-03] MEDS: Insulin Lispro 100 UNIT/ML 3 ML VIAL SUBCUT ×4 (07:40→22:17)
[2020-11-03] MEDS: Sodium Bicarbonate 650 MG TABLET PO ×3 (07:40→22:13)
[2020-11-03 11:33] LABS: Glucose, Whole Blood 230 mg/dL (60-115)
--- NOTE | 2020-11-03 12:17 | PM.CCPN ---
Subjective Subjective Date of Service: 11/03/20 Interval History: 79-year-old gentleman with underlying history of obesity, hypertension, diabetes mellitus admitted on 10/29/2020 with progressive dyspnea secondary to acute hypoxic respiratory failure secondary to COVID-19. Patient has been initially monitored on the general medical rodríguez and treated with dexamethasone and remdesivir. His hospital course was significant for progressive increasing supplemental oxygen requirements and on 11/01/2020 he required transferred to intensive care unit for initiation of noninvasive positive pressure ventilation support, as he has failed high-flow nasal cannula. Titrated to high-flow nasal cannula this a.m.. Critical Care Time (minutes): 45 Physical Exam Vital Signs: Vital Signs: Last Vital Signs Temp 97.0 F 11/03/20 08:00 Pulse 97 11/03/20 11:00 Resp 21 H 11/03/20 11:00 BP 118/59 L 11/03/20 11:00 Pulse Ox 92 11/03/20 11:00 Body Mass Index 39.1 Const: General: no acute distress, alert and awake Eyes: Sclerae: sclerae normal EOM: EOMs intact bilaterally Neck: Neck: Yes no lymphadenopathy, Yes trachea midline and Yes supple Resp: Auscultation: crackles (Diffuse bilateral) Cardio: Rate: regular rate Rhythm: regular rhythm Heart sounds: no gallops, no murmurs and no rubs GI: Palpation (GI): Soft to palpation and Other GI palpation findings present ( Nontender) Auscultation: normal bowel sounds Extrem: General: No clubbing, No cyanosis and Yes pedal edema (Trace bilateral) Objective Data Labs CBC & Chem 7: 11/03/20 05:28 11/03/20 05:28 Labs: Laboratory Results - last 24 hr 11/02/20 11/02/20 11/03/20 16:33 20:20 05:28 WBC 8.7 RBC 5.37 Hgb 15.7 Hct 47.9 MCV 89.2 MCH 29.2 MCHC 32.8 RDW 14.6 Plt Count 126 L MPV 11.7 Immature Gran % (Auto) 1.4 H Neut % (Auto) 79.2 H Lymph % (Auto) 9.5 L [place] % (Auto) 9.8 Eos % (Auto) 0.0 Baso % (Auto) 0.1 Lymph # (Auto) 0.8 L [place] # (Auto) 0.9 Eos # (Auto) 0.0 Baso # (Auto) 0.0 Abs Immat Gran (auto) 0.12 H Absolute Neuts (auto) 6.9 Absolute Nucleated RBC 0.000 Nucleated RBC % (auto) 0.0 VBG pH VBG pCO2 VBG pO2 VBG HCO3 VBG O2 Saturation VBG Base Excess Sodium Potassium Chloride Carbon Dioxide Anion Gap BUN Creatinine Estim Creat Clear Calc Estimated GFR POC Glucose 204 H 195 H Random Glucose Calcium Phosphorus Magnesium Albumin 11/03/20 11/03/20 11/03/20 05:28 05:38 07:20 WBC RBC Hgb Hct MCV MCH MCHC RDW Plt Count MPV Immature Gran % (Auto) Neut % (Auto) Lymph % (Auto) [place] % (Auto) Eos % (Auto) Baso % (Auto) Lymph # (Auto) [place] # (Auto) Eos # (Auto) Baso # (Auto) Abs Immat Gran (auto) Absolute Neuts (auto) Absolute Nucleated RBC Nucleated RBC % (auto) VBG pH 7.38 VBG pCO2 40 VBG pO2 34 VBG HCO3 24 VBG O2 Saturation 46.0 VBG Base Excess -0.9 Sodium 142 Potassium 5.2 H Chloride 108 Carbon Dioxide 23 Anion Gap 16 BUN 49 H Creatinine 1.52 H Estim Creat Clear Calc 46.6 Estimated GFR 45 POC Glucose 197 H Random Glucose 226 H Calcium 9.1 D Phosphorus 2.8 Magnesium 2.1 Albumin 3.6 11/03/20 11:30 WBC RBC Hgb Hct MCV MCH MCHC RDW Plt Count MPV Immature Gran % (Auto) Neut % (Auto) Lymph % (Auto) [place] % (Auto) Eos % (Auto) Baso % (Auto) Lymph # (Auto) [place] # (Auto) Eos # (Auto) Baso # (Auto) Abs Immat Gran (auto) Absolute Neuts (auto) Absolute Nucleated RBC Nucleated RBC % (auto) VBG pH VBG pCO2 VBG pO2 VBG HCO3 VBG O2 Saturation VBG Base Excess Sodium Potassium Chloride Carbon Dioxide Anion Gap BUN Creatinine Estim Creat Clear Calc Estimated GFR POC Glucose 230 H Random Glucose Calcium Phosphorus Magnesium Albumin Microbiology Microbiology Results: Microbiology 10/29/20 16:41 Blood - Venous Blood Culture - Preliminary No growth after 48 hours. 10/29/20 16:41 Blood - Venous Blood Culture - Preliminary No growth after 48 hours. Quality Stroke Does the patient have a stroke diagnosis?: No VTE Prior VTE?: No VTE Risk Level:: Medical - moderate - high VTE Device Contraindication: Treatment Not Indicated VTE Drug Contraindication: N/A - Med Ordered Progress Note: A&P Assessment and plan (1) Acute kidney injury: Status: Acute Assessment and Plan: Assessment: 79-year-old gentleman with underlying obesity, hypertension, diabetes mellitus admitted with worsening shortness of breath secondary to COVID-19 ARDS, now requiring noninvasive positive pressure ventilatory support Plan: Neuro: No acute issues. Cardiac: No acute issues. Pulmonary: Acute hypoxic respiratory failure secondary to COVID-19 ARDS. Continue to titrate off supplemental oxygen as tolerated. Today with some improvement tolerating high-flow nasal cannula. Renal: Acute kidney injury, likely secondary to COVID-19 viral sepsis. Improving. Non oliguric. Continue to monitor renal indices and urine output Endo: No acute issues. GI: No acute issues. ID: COVID 19, treated with dexamethasone and remdesivir. Status post tocilizumab on 11/02/2020. Heme/Onc: No acute issues. Psych: No acute issues. Miscellaneous: No acute issues. Prophylaxis: Heparin Diet: Diabetic Critical care time spent: 45 (2) Acute respiratory distress syndrome (ARDS) due to COVID-19 virus: Status: Acute (3) Acute respiratory failure with hypoxia: Status: Acute (4) Type 2 diabetes mellitus with chronic kidney disease: Status: Acute (5) Essential hypertension: Status: Acute
--- NOTE | 2020-11-03 16:03 | MHC.CM.PN ---
Pt transferred to ICU with increasing O2 needs secondary to COVID: Now on High flow/NRB with CPAP at night. Original d/c plans were to return to home with dtr/JOB [employer] who will also transport. CM to re-evaluate once pt is able to participate in PT eval to ensure home safety.
[2020-11-03 16:30] LABS: Glucose, Whole Blood 254 mg/dL (60-115)
--- NOTE | 2020-11-03 19:35 | PC.NURSE ---
Assumed care at 07:00. Patient alert and oriented, endorses fatigue. Patient is Persian speaking only. Patient was titrated off CPAP 12 and 70% to Hi Flow 100% and 55 LPM, after a period of using supplemental oxygen with the NRB as well as hi FLow. Patient SpO2 was mostly between 90% and 92%, with occasional rise to 97-8% when right side lateral, and frequent drops to 86-88% range with other motion. patient with good compliance with turning laterally. Patient with intermittent nonproductive cough. Lung sounds markedly diminished throughout and distant heart sounds. Abdomen large, puffy, semi-firm. Last BM was Sunday. Denies nausea. Patient with no wounds, only had scar on upper right abdomen. Patient without complaint beyond fatigue, cough, and oxygen requirements. Daughter, eduardo, was updated today.
[2020-11-03 21:58] LABS: Glucose, Whole Blood 192 mg/dL (60-115)
[2020-11-03] MEDS: Insulin Glargine,Hum.rec.anlog 100 UNIT/ML 10 ML VIAL 48 UNIT SUBCUT (22:13)
[2020-11-03] MEDS: Aspirin Enteric Coated 81 MG TABLET.DR PO (22:13)
[2020-11-03] MEDS: Remdesivir 100 MG in 0.9 % Sodium Chloride 230 ML 115 MG IV (22:15)
[2020-11-03] MEDS: Latanoprost 0.005 % Ophth Sol 2.5 ML DROPS 1 DROP EYE-BOTH (22:17)
[2020-11-04] VITALS (32 sets, daily range): BP systolic 114–172; BP diastolic 54–91; PULSE 28–95; RESP 19–67; TEMP 36.2–36.8; O2SAT 82–97; BMI 38.7
[2020-11-04] MEDS: Heparin Sodium,Porcine 5,000 UNIT/ML VIAL 5000 UNIT SUBCUT ×2 (00:11→11:50)
[2020-11-04] MEDS: 0.9 % Sodium Chloride Flush 3 ML SYRINGE IVFLUSH ×2 (00:11→09:02)
[2020-11-04 05:33] LABS: VBG Base Excess 0.6 mmol/L; VBG HCO3 24 mmol/L (22-26); VBG pCO2 38 mmHg; VBG pH 7.41 (7.32-7.43); VBG pO2 42 mmHg
[2020-11-04 05:46] LABS: MANUAL DIFF FLAG NO
[2020-11-04 05:52] LABS: Basophils Percent Auto 0.2 % (0-2); Hematocrit 48.3 % (42-52); Hemoglobin 15.6 g/dl (14.0-18.0); Imm Gran Abs Auto 0.28 X10*3/uL (0.00-0.03); Imm Gran Pct Auto 2.4 % (0.0-0.4); Lymphocytes Percent Auto 8.3 % (20-40); Mean Corpuscular HGB Conc 32.3 g/dl (31.0-36.0); Mean Corpuscular Hemoglobin 29.1 pg (27.0-33.0); Mean Corpuscular Volume 90.1 fL (80-98); Mean Platelet Volume 11.6 fL (9.4-12.4); Monocytes Percent Auto 8.7 % (2-11); NRBC Pct Auto 0.2 /100WBC (0.0-0.2); Neutrophils Absolute Auto 9.5 X10*3/uL (2.0-8.3); Neutrophils Percent Auto 80.4 % (45-73); Platelet Count 152 X10*3/uL (160-400); Red Blood Count 5.36 X10*6/uL (4.60-5.80); Red Cell Distribution Width 14.5 % (11.0-16.0); White Blood Count 11.8 X10*3/uL (4.8-10.8)
[2020-11-04 06:16] LABS: Albumin Level 3.4 g/dL (3.5-5.0); Anion Gap 15 (12-20); Blood Urea Nitrogen 48 mg/dL (9-16); Calcium 8.8 mg/dL (8.4-10.2); Carbon Dioxide 22 mmol/L (22-29); Chloride 110 mmol/L (96-108); Estimated Glomerular Filt Rate 50; Glucose Random 135 mg/dL (60-115); Phosphorus 3.6 mg/dL (2.7-4.5); Potassium 4.8 mmol/L (3.3-5.1); Sodium 142 mmol/L (135-145)
[2020-11-04 06:29] LABS: Venous Blood Gas Refer to POC result
[2020-11-04 07:15] LABS: Glucose, Whole Blood 123 mg/dL (60-115)
[2020-11-04] MEDS: dexAMETHasone sod phosphate 4 MG/ML VIAL 6 MG IVPUSH (09:01)
[2020-11-04] MEDS: Sodium Bicarbonate 650 MG TABLET PO ×3 (09:02→20:37)
--- NOTE | 2020-11-04 09:30 | CA_ITS ---
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 - Normal right ventricular cavity size and systolic function. - Cannot rule out basal inferior wall hypokinesis. - There is mild aortic valve stenosis. Findings Left Ventricle Normal left ventricular size, thickness, and systolic function. The visually estimated ejection fraction is between 55-60%. Regional wall motion abnormalities can not be excluded due to suboptimal endocardial definition. Diastolic function is indeterminate on the basis of available data. Cannot rule out basal inferior wall hypokinesis. Right Ventricle Normal right ventricular cavity size and systolic function. Atria The left atrium is normal in size. Aortic Valve There is a normal trileaflet aortic valve. There is moderate calcification of the aortic valve. There is mild aortic valve stenosis. The peak aortic velocity is 2.48 m/s. The mean gradient is 13 mmHg. The aortic valve area is 1.75 cm2. There is no aortic valve regurgitation. Mitral Valve Normal mitral valve structure and function. There is no mitral valve regurgitation. There is no mitral valve stenosis. Pulmonic Valve The pulmonic valve is likely normal. Tricuspid Valve Normal tricuspid valve structure and function. There is trace tricuspid valve regurgitation. Tricuspid regurgitation envelope is inadequate for calculation of right ventricular systolic pressure. Normal right atrial pressure. Great Vessels All visible segments of the aorta are normal in size. The pulmonary artery was not well visualized. Venous The inferior vena cava is normal in size and collapses greater than 50% with inspiration. Pericardium/Pleural Prominent epicardial adipose tissue noted. There is no evidence of pericardial effusion. Prior Study Comparison No prior study available for comparison. Measurements 2D Linear Measurements IVSd: 1.22 0.6-0.9/0.6-1.0 cm LVIDd: 4.06 3.9-5.3/4.2-5.9 cm LVIDd Index: 1.86 2.4-3.2/2.2-3.1 cm/m2 LVIDs: 3.04 2.0-3.6 cm LVPWd: 1.05 0.7-1.1 cm Ao Root: 3.10 2.1-3.5 cm LA Diam: 3.50 2.7-3.8/3.0-4.0 cm LAIDs Index: 1.61 1.5-2.3 cm/m2 LV Mass: 194.18 67-162/88-224 g LV Mass Index: 89.07 43-95/49-115 g/m2 LVOT Diam: 2.50 3.0+(-)1.3 cm 2D Systolic Function EF 4C: 74.00 >55% Mitral Valve MV Pk E: 0.55 MV PK A: 0.64 MV Decel Time: 111.00 E/A: 0.90 E'Lateral: 7.29 E'Medial: 5.44 E/E' Med: 10.10 E/E' Lat: 7.60 PHT: 33.00 MVA PHT: 6.67 Decel [place]: 4.94 Aortic Valve AoV Pk Patrice: 2.48 AoV Mn Patrice: 1.68 AoV VTI: 0.47 AoV Pk Grad: 25.00 Aov Mn Grad: 13.00 [place] Cont.VTI: 1.75 LVOT LVOT Pk Patrice: 0.90 LVOT Mn Patrice: 0.61 LVOT VTI: 0.17 LVOT Pk Grad: 3.00 LVOT Mn Grad: 2.00 LVOT Diam: 2.50 LVOT Area: 4.91 Diastolic Function MV Pk E: 0.55 MV Pk A: 0.64 E/A: 0.90 E'Medial: 5.44 E/E' Med: 10.10 E' Laterial: 7.29 E/E' Lat: 7.60 Right Ventricle TAPSE (mm): 2.20 Tricuspid Valve RA Press: 3.00 Great Vessels Aorta Ao Root-2D: 3.10 2.0-3.7 cm Updated in Other Vendor System with Status of Final Primo Kirk MD electronically signed on 11/05/2020 4:48:54 PM with status of Final
[2020-11-04 11:24] LABS: Glucose, Whole Blood 107 mg/dL (60-115)
--- NOTE | 2020-11-04 13:47 | P.PNCC_ITS ---
Subjective Subjective Date of Service: 11/04/20 Interval History: 79-year-old gentleman with underlying history of obesity, hypertension, diabetes mellitus admitted on 10/29/2020 with progressive dyspnea secondary to acute hypoxic respiratory failure secondary to COVID-19. Patient has been initially monitored on the general medical rodríguez and treated with dexamethasone and remdesivir. His hospital course was significant for progressive increasing supplemental oxygen requirements and on 11/01/2020 he required transferred to intensive care unit for initiation of noninvasive positive pressure ventilation support, as he has failed high-flow nasal cannula. No events overnight. Continues to be on and off CPAP. Critical Care Time (minutes): 45 Physical Exam Vital Signs: Vital Signs: Last Vital Signs Temp 98.2 F 11/04/20 13:00 Pulse 95 11/04/20 13:00 Resp 26 H 11/04/20 13:00 BP 144/71 H 11/04/20 13:00 Pulse Ox 82 L 11/04/20 13:00 Body Mass Index 38.7 Const: General: no acute distress, alert and awake Nutritional Appearance: obese Eyes: Sclerae: sclerae normal EOM: EOMs intact bilaterally Neck: Neck: Yes no lymphadenopathy, Yes trachea midline and Yes supple Resp: Effort & Inspection: normal respiratory effort (On CPAP) and no respiratory distress Auscultation: crackles (Diffuse bilateral) Cardio: Rate: regular rate Rhythm: regular rhythm Heart sounds: no gallops, no murmurs and no rubs GI: Palpation (GI): Soft to palpation and Other GI palpation findings present ( Nontender) Auscultation: normal bowel sounds Extrem: General: No clubbing, No cyanosis and Yes pedal edema (Trace bilateral) Objective Data Labs CBC & Chem 7: 11/04/20 05:26 11/04/20 05:26 Labs: Laboratory Results - last 24 hr 11/03/20 11/03/20 11/04/20 16:26 21:54 05:26 WBC 11.8 H RBC 5.36 Hgb 15.6 Hct 48.3 MCV 90.1 MCH 29.1 MCHC 32.3 RDW 14.5 Plt Count 152 L MPV 11.6 Immature Gran % (Auto) 2.4 H Neut % (Auto) 80.4 H Lymph % (Auto) 8.3 L [place] % (Auto) 8.7 Eos % (Auto) 0.0 Baso % (Auto) 0.2 Lymph # (Auto) 1.0 L [place] # (Auto) 1.0 Eos # (Auto) 0.0 Baso # (Auto) 0.0 Abs Immat Gran (auto) 0.28 H Absolute Neuts (auto) 9.5 H Absolute Nucleated RBC 0.020 H Nucleated RBC % (auto) 0.2 VBG pH VBG pCO2 VBG pO2 VBG HCO3 VBG O2 Saturation VBG Base Excess Sodium Potassium Chloride Carbon Dioxide Anion Gap BUN Creatinine Estim Creat Clear Calc Estimated GFR POC Glucose 254 H 192 H Random Glucose Calcium Phosphorus Magnesium Albumin 11/04/20 11/04/20 11/04/20 05:26 05:27 07:10 WBC RBC Hgb Hct MCV MCH MCHC RDW Plt Count MPV Immature Gran % (Auto) Neut % (Auto) Lymph % (Auto) [place] % (Auto) Eos % (Auto) Baso % (Auto) Lymph # (Auto) [place] # (Auto) Eos # (Auto) Baso # (Auto) Abs Immat Gran (auto) Absolute Neuts (auto) Absolute Nucleated RBC Nucleated RBC % (auto) VBG pH 7.41 VBG pCO2 38 VBG pO2 42 VBG HCO3 24 VBG O2 Saturation 63.0 VBG Base Excess 0.6 Sodium 142 Potassium 4.8 Chloride 110 H Carbon Dioxide 22 Anion Gap 15 BUN 48 H Creatinine 1.38 Estim Creat Clear Calc 51.0 Estimated GFR 50 POC Glucose 123 H Random Glucose 135 H D Calcium 8.8 Phosphorus 3.6 Magnesium 2.0 Albumin 3.4 L 11/04/20 11:20 WBC RBC Hgb Hct MCV MCH MCHC RDW Plt Count MPV Immature Gran % (Auto) Neut % (Auto) Lymph % (Auto) [place] % (Auto) Eos % (Auto) Baso % (Auto) Lymph # (Auto) [place] # (Auto) Eos # (Auto) Baso # (Auto) Abs Immat Gran (auto) Absolute Neuts (auto) Absolute Nucleated RBC Nucleated RBC % (auto) VBG pH VBG pCO2 VBG pO2 VBG HCO3 VBG O2 Saturation VBG Base Excess Sodium Potassium Chloride Carbon Dioxide Anion Gap BUN Creatinine Estim Creat Clear Calc Estimated GFR POC Glucose 107 Random Glucose Calcium Phosphorus Magnesium Albumin Microbiology Microbiology Results: Microbiology 10/29/20 16:41 Blood - Venous Blood Culture - Final No growth after 5 days. 10/29/20 16:41 Blood - Venous Blood Culture - Final No growth after 5 days. Quality Stroke Does the patient have a stroke diagnosis?: No VTE Prior VTE?: No VTE Risk Level:: Medical - moderate - high VTE Device Contraindication: Treatment Not Indicated VTE Drug Contraindication: N/A - Med Ordered Progress Note: A&P Assessment and plan (1) Acute respiratory distress syndrome (ARDS) due to COVID-19 virus: Status: Acute Assessment and Plan: Assessment: 79-year-old gentleman with underlying obesity, hypertension, diabetes mellitus admitted with worsening shortness of breath secondary to COVID-19 ARDS, now requiring noninvasive positive pressure ventilatory support Plan: Neuro: No acute issues. Cardiac: No acute issues. Pulmonary: Acute hypoxic respiratory failure secondary to COVID-19 ARDS. Cont inue to titrate off noninvasive positive pressure ventilation support as tolerated. Renal: Acute kidney injury, likely secondary to COVID-19 viral sepsis. Improving. Non oliguric. Continue to monitor renal indices and urine output Endo: No acute issues. GI: No acute issues. ID: COVID 19, treated with dexamethasone and remdesivir. Status post tocilizumab on 11/02/2020. Heme/Onc: No acute issues. Psych: No acute issues. Miscellaneous: No acute issues. Prophylaxis: Heparin Diet: Diabetic Critical care time spent: 45 (2) Acute respiratory failure with hypoxia: Status: Acute (3) Type 2 diabetes mellitus with diabetic polyneuropathy: Status: Acute (4) Essential hypertension: Status: Acute
[2020-11-04 18:40] LABS: Glucose, Whole Blood 170 mg/dL (60-115)
--- NOTE | 2020-11-04 19:53 | PC.NURSE ---
Assumed care at 0700. Patient alert and oriented. Denies complaints, but has frequent moist nonproductive cough and high oxygen requirements. Continued on CPAP all day, and RT was unable to place on high flow due to SpO2 dropping to high 80's% on CPAP. CPAP settings changed to 14 and 75%. Diminished lung sounds throghout. Distant heart sounds. Unable to eat all day related to oxygen requirements. Discussed with METROLOGIST and this evening will encourage glucerna. Patient took hydration only today. POCs were WNL, and evening was 170, held 2 units due to NPO status. Patient was sinus rhythm with 1st degree AVB on monitor. Patient had echo done today. Patient was OOB to commode this evening with ok from , and did well with transfer, was placed on 100% while transferring to commode. Patient had trouble moving bowels today, unsuccessful x2. Discussed with METROLOGIST and new order for miralax.
[2020-11-04] MEDS: Latanoprost 0.005 % Ophth Sol 2.5 ML DROPS 1 DROP EYE-BOTH (20:37)
[2020-11-04] MEDS: Aspirin Enteric Coated 81 MG TABLET.DR PO (20:37)
[2020-11-04 22:29] LABS: Glucose, Whole Blood 173 mg/dL (60-115)
[2020-11-05] VITALS (31 sets, daily range): BP systolic 91–144; BP diastolic 38–93; PULSE 70–109; RESP 14–27; TEMP 36.4; O2SAT 84–97; BMI 38.4
[2020-11-05] MEDS: Heparin Sodium,Porcine 5,000 UNIT/ML VIAL 5000 UNIT SUBCUT ×3 (00:19→23:28)
[2020-11-05] MEDS: 0.9 % Sodium Chloride Flush 3 ML SYRINGE IVFLUSH ×4 (00:33→23:28)
[2020-11-05 05:23] LABS: VBG Base Excess 1.4 mmol/L; VBG HCO3 25 mmol/L (22-26); VBG pCO2 38 mmHg; VBG pH 7.43 (7.32-7.43); VBG pO2 45 mmHg
[2020-11-05 05:42] LABS: Basophils Percent Auto 0.4 % (0-2); Eosinophils Percent Auto 0.1 % (0-4); Hemoglobin 17.3 g/dl (14.0-18.0); Imm Gran Abs Auto 0.74 X10*3/uL (0.00-0.03); Imm Gran Pct Auto 6.7 % (0.0-0.4); Lymphocytes Percent Auto 9.4 % (20-40); Mean Corpuscular Hemoglobin 29.1 pg (27.0-33.0); Mean Corpuscular Volume 90.9 fL (80-98); Mean Platelet Volume 11.7 fL (9.4-12.4); Monocytes Absolute Auto 0.8 X10*3/uL (0.1-1.2); Monocytes Percent Auto 7.5 % (2-11); Neutrophils Absolute Auto 8.4 X10*3/uL (2.0-8.3); Neutrophils Percent Auto 75.9 % (45-73); Platelet Count 173 X10*3/uL (160-400); Red Blood Count 5.94 X10*6/uL (4.60-5.80); Red Cell Distribution Width 14.9 % (11.0-16.0); SCAN SMEAR FLAG 1
[2020-11-05 05:58] LABS: Albumin Level 3.6 g/dL (3.5-5.0); Anion Gap 16 (12-20); Blood Urea Nitrogen 52 mg/dL (9-16); Calcium 9.1 mg/dL (8.4-10.2); Carbon Dioxide 24 mmol/L (22-29); Chloride 107 mmol/L (96-108); Estimated Glomerular Filt Rate 49; Glucose Random 157 mg/dL (60-115); Phosphorus 3.9 mg/dL (2.7-4.5); Sodium 142 mmol/L (135-145)
[2020-11-05 06:02] LABS: MANUAL DIFF FLAG SCAN
[2020-11-05 06:03] LABS: SLIDE REVIEW VERIFIED
[2020-11-05 06:41] LABS: Venous Blood Gas Refer to POC result
[2020-11-05] MEDS: dexAMETHasone sod phosphate 4 MG/ML VIAL 6 MG IVPUSH (07:42)
[2020-11-05 07:43] LABS: Glucose, Whole Blood 136 mg/dL (60-115)
[2020-11-05] MEDS: Sodium Bicarbonate 650 MG TABLET PO ×3 (07:43→20:08)
[2020-11-05] MEDS: Dextrose 5 % and Lactated Ring 1,000 ML 200 ML IVCONT (08:37)
--- NOTE | 2020-11-05 09:54 | MHC.CLN ---
RECOMMEND GLUCERNA BID R/T POOR PO SECONDARY TO BIPAP MASK PT TOLERATING FLUIDS OVER PO R/T DIFFICULTY BREATHING MONITOR PO INTAKE CLOSELY
[2020-11-05 11:04] LABS: Glucose, Whole Blood 236 mg/dL (60-115)
[2020-11-05] MEDS: Insulin Lispro 100 UNIT/ML 3 ML VIAL SUBCUT ×2 (11:13→15:48)
--- NOTE | 2020-11-05 13:26 | MHC.CM.PN ---
Met with pt with the assistance of an freelance interpreter/translator to discuss completion of a HCP. Pt able to verbally state appointment of his two dtrs, Lisa and Aaliyah as his agents and understood criteria for activation of HCP if medically necessary. Copies left on pt's chart for Lisa and copy scanned into his EMR.
--- NOTE | 2020-11-05 15:04 | P.PNCC_ITS ---
Subjective Subjective Date of Service: 11/05/20 Interval History: 79-year-old gentleman with underlying history of obesity, hypertension, diabetes mellitus admitted on 10/29/2020 with progressive dyspnea secondary to acute hypoxic respiratory failure secondary to COVID-19. Patient has been initially monitored on the general medical rodríguez and treated with dexamethasone and remdesivir. His hospital course was significant for progressive increasing supplemental oxygen requirements and on 11/01/2020 he required transferred to intensive care unit for initiation of noninvasive positive pressure ventilation support, as he has failed high-flow nasal cannula. No events overnight. Continues to be on and off CPAP. Critical Care Time (minutes): 45 Physical Exam Vital Signs: Vital Signs: Last Vital Signs Temp 97.6 F 11/05/20 08:00 Pulse 89 11/05/20 14:00 Resp 19 11/05/20 14:40 BP 132/66 11/05/20 14:00 Pulse Ox 93 11/05/20 14:00 Body Mass Index 38.4 Const: General: no acute distress, alert and awake Nutritional Appearance: obese Eyes: Sclerae: sclerae normal EOM: EOMs intact bilaterally Neck: Neck: Yes no lymphadenopathy, Yes trachea midline and Yes supple Resp: Effort & Inspection: normal respiratory effort (On high-flow) and no respiratory distress Auscultation: crackles (Diffuse bilateral) Cardio: Rate: regular rate Rhythm: regular rhythm Heart sounds: no gallops, no murmurs and no rubs GI: Palpation (GI): Soft to palpation and Other GI palpation findings present ( Nontender) Auscultation: normal bowel sounds Extrem: General: Yes no pedal edema, No clubbing, No cyanosis and Yes pedal edema (Trace bilateral) Objective Data Labs CBC & Chem 7: 11/05/20 05:15 11/05/20 05:15 Labs: Laboratory Results - last 24 hr 11/04/20 11/04/20 11/05/20 18:12 22:22 05:15 WBC 11.0 H RBC 5.94 H Hgb 17.3 Hct 54.0 H MCV 90.9 MCH 29.1 MCHC 32.0 RDW 14.9 Plt Count 173 MPV 11.7 Immature Gran % (Auto) 6.7 H Neut % (Auto) 75.9 H Lymph % (Auto) 9.4 L [place] % (Auto) 7.5 Eos % (Auto) 0.1 Baso % (Auto) 0.4 Lymph # (Auto) 1.0 L [place] # (Auto) 0.8 Eos # (Auto) 0.0 Baso # (Auto) 0.0 Abs Immat Gran (auto) 0.74 H Absolute Neuts (auto) 8.4 H Absolute Nucleated RBC 0.000 Nucleated RBC % (auto) 0.0 Smear Tech's Comments VERIFIED VBG pH VBG pCO2 VBG pO2 VBG HCO3 VBG O2 Saturation VBG Base Excess Sodium Potassium Chloride Carbon Dioxide Anion Gap BUN Creatinine Estim Creat Clear Calc Estimated GFR POC Glucose 170 H 173 H Random Glucose Calcium Phosphorus Magnesium Albumin 11/05/20 11/05/20 11/05/20 05:15 05:18 07:37 WBC RBC Hgb Hct MCV MCH MCHC RDW Plt Count MPV Immature Gran % (Auto) Neut % (Auto) Lymph % (Auto) [place] % (Auto) Eos % (Auto) Baso % (Auto) Lymph # (Auto) [place] # (Auto) Eos # (Auto) Baso # (Auto) Abs Immat Gran (auto) Absolute Neuts (auto) Absolute Nucleated RBC Nucleated RBC % (auto) Smear Tech's Comments VBG pH 7.43 VBG pCO2 38 VBG pO2 45 VBG HCO3 25 VBG O2 Saturation 69.0 VBG Base Excess 1.4 Sodium 142 Potassium 5.0 Chloride 107 Carbon Dioxide 24 Anion Gap 16 BUN 52 H Creatinine 1.41 H Estim Creat Clear Calc 50.0 Estimated GFR 49 POC Glucose 136 H Random Glucose 157 H Calcium 9.1 Phosphorus 3.9 Magnesium 2.0 Albumin 3.6 11/05/20 10:59 WBC RBC Hgb Hct MCV MCH MCHC RDW Plt Count MPV Immature Gran % (Auto) Neut % (Auto) Lymph % (Auto) [place] % (Auto) Eos % (Auto) Baso % (Auto) Lymph # (Auto) [place] # (Auto) Eos # (Auto) Baso # (Auto) Abs Immat Gran (auto) Absolute Neuts (auto) Absolute Nucleated RBC Nucleated RBC % (auto) Smear Tech's Comments VBG pH VBG pCO2 VBG pO2 VBG HCO3 VBG O2 Saturation VBG Base Excess Sodium Potassium Chloride Carbon Dioxide Anion Gap BUN Creatinine Estim Creat Clear Calc Estimated GFR POC Glucose 236 H Random Glucose Calcium Phosphorus Magnesium Albumin Microbiology Microbiology Results: Microbiology 10/29/20 16:41 Blood - Venous Blood Culture - Final No growth after 5 days. 10/29/20 16:41 Blood - Venous Blood Culture - Final No growth after 5 days. Quality Stroke Does the patient have a stroke diagnosis?: No VTE Prior VTE?: No VTE Risk Level:: Medical - moderate - high VTE Device Contraindication: Treatment Not Indicated VTE Drug Contraindication: N/A - Med Ordered Progress Note: A&P Assessment and plan (1) Acute kidney injury: Status: Acute Assessment and Plan: Assessment: 79-year-old gentleman with underlying obesity, hypertension, diabetes mellitus admitted with worsening shortness of breath secondary to COVID-19 ARDS, now requiring noninvasive positive pressure ventilatory support Plan: Neuro: No acute issues. Cardiac: No acute issues. Pulmonary: Acute hypoxic respiratory failure secondary to COVID-19 ARDS. Continue to titrate off noninvasive positive pressure ventilation support as tolerated. Renal: Acute kidney injury, likely secondary to COVID-19 viral sepsis. Improving. Non oliguric. Continue to monitor renal indices and urine output Endo: No acute issues. GI: No acute issues. ID: COVID 19, treated with dexamethasone and remdesivir. Status post tocilizumab on 11/02/2020. Heme/Onc: No acute issues. Psych: No acute issues. Miscellaneous: No acute issues. Prophylaxis: Heparin Diet: Diabetic Critical care time spent: 45 (2) Acute respiratory distress syndrome (ARDS) due to COVID-19 virus: Status: Acute (3) Acute respiratory failure with hypoxia: Status: Acute (4) Type 2 diabetes mellitus with chronic kidney disease: Status: Acute (5) Obesity due to excess calories: Status: Acute (6) Essential hypertension: Status: Acute
[2020-11-05 15:47] LABS: Glucose, Whole Blood 257 mg/dL (60-115)
--- NOTE | 2020-11-05 18:17 | PC.NURSE ---
Pt with labile SPO2 from 81% to 91%. On high flow for approximately 5 hrs. Family in for visit, two visitors at window and attempting to speak through door gap in middle. Pt desating to low eighties. Reminded family that if pt is talking on phone taking his bi-pap mask off doing so was causing him to de-sat. Woman stated she would never do that. Family stated he looked uncomfortable. In actuality pt was urinating into urinal. Asked for me to go bedside to readjust pt. Asked family to family room while I opened door and helped pt. Woman stepped back to opposite wall and stated this is where the girl had me stand and she wasn't exiting. I stated I didn't care it was a safety issue, but was cut off and they walked out. Pt repositioned , bi-pap mask re-adjusted, and pt given a drink.
[2020-11-05] MEDS: Aspirin Enteric Coated 81 MG TABLET.DR PO (20:08)
[2020-11-05 20:23] LABS: Glucose, Whole Blood 151 mg/dL (60-115)
[2020-11-05] MEDS: Latanoprost 0.005 % Ophth Sol 2.5 ML DROPS 1 DROP EYE-BOTH (20:36)
[2020-11-06] VITALS (31 sets, daily range): BP systolic 108–182; BP diastolic 63–98; PULSE 72–102; RESP 14–29; TEMP 36.2–37.1; O2SAT 78–99; BMI 37.6
--- NOTE | 2020-11-06 03:29 | PC.NURSE ---
Patient's bedtime Lantus was held per PODIATRIST ASSISTANT. Patient is with minimal PO intake at this time. Patient assists with repositioning with some respiratory decompensation, patient recovers with a few minutes.
[2020-11-06 05:26] LABS: VBG HCO3 27 mmol/L (22-26); VBG pCO2 41 mmHg; VBG pH 7.42 (7.32-7.43); VBG pO2 41 mmHg
[2020-11-06 05:42] LABS: Hematocrit 54.1 % (42-52); Hemoglobin 17.5 g/dl (14.0-18.0); Mean Corpuscular HGB Conc 32.3 g/dl (31.0-36.0); Mean Corpuscular Hemoglobin 29.3 pg (27.0-33.0); Mean Corpuscular Volume 90.5 fL (80-98); Mean Platelet Volume 11.8 fL (9.4-12.4); NRBC Pct Auto 0.2 /100WBC (0.0-0.2); Platelet Count 188 X10*3/uL (160-400); Red Blood Count 5.98 X10*6/uL (4.60-5.80); Red Cell Distribution Width 14.6 % (11.0-16.0)
[2020-11-06 06:02] LABS: Band Neutrophils Percent 7 % (3-5); Burr Cells 1+ (0-2) /OIF; Eosinophils Absolute Manual 0.1 X10*3/UL (0.0-0.8); Eosinophils Percent Manual 1 % (0-4); Lymphocytes Absolute Manual 0.4 X10*3/uL (0.6-4.8); Lymphocytes Percent Manual 3 % (20-40); Metamyelocytes Absolute 0.1 X10*3/uL; Metamyelocytes Percent 1 %; Monocytes Absolute Manual 0.4 X10*3/uL (0.0-1.2); Monocytes Percent Manual 3 % (2-11); Neutrophils Percent Manual 85 % (45-73); Platelet Estimate NORMAL (NORMAL); RBC Morphology NOTED; Toxic Vacuolation PRESENT
[2020-11-06 06:03] LABS: Large Platelet PRESENT; Platelet Morphology Comment NOTED
[2020-11-06 06:04] LABS: Venous Blood Gas Refer to POC result
[2020-11-06 06:13] LABS: Albumin Level 3.6 g/dL (3.5-5.0); Anion Gap 16 (12-20); Blood Urea Nitrogen 49 mg/dL (9-16); Calcium 9.6 mg/dL (8.4-10.2); Carbon Dioxide 26 mmol/L (22-29); Chloride 106 mmol/L (96-108); Creatinine Clr Calc Pharmacy 49.7; Estimated Glomerular Filt Rate 49; Glucose Random 115 mg/dL (60-115); Magnesium 1.9 mg/dL (1.6-2.6); Phosphorus 3.9 mg/dL (2.7-4.5); Potassium 4.6 mmol/L (3.3-5.1); Sodium 143 mmol/L (135-145)
[2020-11-06 07:25] LABS: Glucose, Whole Blood 120 mg/dL (60-115)
[2020-11-06] MEDS: dexAMETHasone sod phosphate 4 MG/ML VIAL 6 MG IVPUSH (08:17)
[2020-11-06] MEDS: Sodium Bicarbonate 650 MG TABLET PO ×3 (08:18→20:34)
[2020-11-06] MEDS: 0.9 % Sodium Chloride Flush 3 ML SYRINGE IVFLUSH ×2 (08:18→15:23)
[2020-11-06] MEDS: Acetaminophen 325 MG TABLET 650 MG PO (09:31)
[2020-11-06 11:18] LABS: Glucose, Whole Blood 147 mg/dL (60-115)
[2020-11-06] MEDS: Heparin Sodium,Porcine 5,000 UNIT/ML VIAL 5000 UNIT SUBCUT (12:34)
--- NOTE | 2020-11-06 12:46 | P.PNCC_ITS ---
Subjective Subjective Date of Service: 11/06/20 Interval History: 79-year-old gentleman with underlying history of obesity, hypertension, diabetes mellitus admitted on 10/29/2020 with progressive dyspnea secondary to acute hypoxic respiratory failure secondary to COVID-19. Patient has been initially monitored on the general medical rodríguez and treated with dexamethasone and remdesivir. His hospital course was significant for progressive increasing supplemental oxygen requirements and on 11/01/2020 he required transferred to intensive care unit for initiation of noninvasive positive pressure ventilation support, as he has failed high-flow nasal cannula. No events overnight. No significant changes. Continues to be on and off CPAP. Critical Care Time (minutes): 45 Physical Exam Vital Signs: Vital Signs: Last Vital Signs Temp 98.7 F 11/06/20 08:00 Pulse 89 11/06/20 12:00 Resp 20 11/06/20 12:00 BP 156/83 H 11/06/20 12:00 Pulse Ox 93 11/06/20 12:00 Body Mass Index 37.6 Const: General: no acute distress, alert and awake Eyes: Sclerae: sclerae normal EOM: EOMs intact bilaterally Neck: Neck: Yes no lymphadenopathy, Yes trachea midline and Yes supple Resp: Effort & Inspection: normal respiratory effort (On CPAP) and no respiratory distress Auscultation: crackles (Diffuse bilateral) Cardio: Rate: regular rate Rhythm: regular rhythm Heart sounds: no gallops, no murmurs and no rubs GI: Palpation (GI): Soft to palpation and Other GI palpation findings present ( Nontender) Auscultation: normal bowel sounds Extrem: General: No clubbing, No cyanosis and Yes pedal edema (Trace bila teral) Objective Data Labs CBC & Chem 7: 11/06/20 05:14 11/06/20 05:14 Labs: Laboratory Results - last 24 hr 11/05/20 11/05/20 11/06/20 15:44 20:11 05:14 WBC 13.0 H RBC 5.98 H Hgb 17.5 Hct 54.1 H MCV 90.5 MCH 29.3 MCHC 32.3 RDW 14.6 Plt Count 188 MPV 11.8 Immature Gran % (Auto) Cancelled Neut % (Auto) Cancelled Lymph % (Auto) Cancelled [place] % (Auto) Cancelled Eos % (Auto) Cancelled Baso % (Auto) Cancelled Lymph # (Auto) Cancelled [place] # (Auto) Cancelled Eos # (Auto) Cancelled Baso # (Auto) Cancelled Abs Immat Gran (auto) Cancelled Absolute Neuts (auto) Cancelled Absolute Nucleated RBC 0.020 H Nucleated RBC % (auto) 0.2 Neutrophils % (Manual) 85 H Band Neutrophils % 7 H Lymphocytes % (Manual) 3 L Monocytes % (Manual) 3 Eosinophils % (Manual) 1 Metamyelocytes % 1 Abs Neuts (Manual) 12.0 H Lymphocytes # (Manual) 0.4 L Monocytes # (Manual) 0.4 Eosinophils # (Manual) 0.1 Metamyelocytes # 0.1 Toxic Vacuolation PRESENT Platelet Estimate NORMAL Large Platelets PRESENT Plt Morphology Comment NOTED RBC Morphology NOTED [place] Cells 1+ (0-2) VBG pH VBG pCO2 VBG pO2 VBG HCO3 VBG O2 Saturation VBG Base Excess Sodium Potassium Chloride Carbon Dioxide Anion Gap BUN Creatinine Estim Creat Clear Calc Estimated GFR POC Glucose 257 H 151 H Random Glucose Calcium Phosphorus Magnesium Albumin 11/06/20 11/06/20 11/06/20 05:14 05:18 07:19 WBC RBC Hgb Hct MCV MCH MCHC RDW Plt Count MPV Immature Gran % (Auto) Neut % (Auto) Lymph % (Auto) [place] % (Auto) Eos % (Auto) Baso % (Auto) Lymph # (Auto) [place] # (Auto) Eos # (Auto) Baso # (Auto) Abs Immat Gran (auto) Absolute Neuts (auto) Absolute Nucleated RBC Nucleated RBC % (auto) Neutrophils % (Manual) Band Neutrophils % Lymphocytes % (Manual) Monocytes % (Manual) Eosinophils % (Manual) Metamyelocytes % Abs Neuts (Manual) Lymphocytes # (Manual) Monocytes # (Manual) Eosinophils # (Manual) Metamyelocytes # Toxic Vacuolation Platelet Estimate Large Platelets Plt Morphology Comment RBC Morphology [place] Cells VBG pH 7.42 VBG pCO2 41 VBG pO2 41 VBG HCO3 27 H VBG O2 Saturation 62.0 VBG Base Excess 3.0 Sodium 143 Potassium 4.6 Chloride 106 Carbon Dioxide 26 Anion Gap 16 BUN 49 H Creatinine 1.41 H Estim Creat Clear Calc 49.7 Estimated GFR 49 POC Glucose 120 H Random Glucose 115 Calcium 9.6 Phosphorus 3.9 Magnesium 1.9 Albumin 3.6 11/06/20 11:14 WBC RBC Hgb Hct MCV MCH MCHC RDW Plt Count MPV Immature Gran % (Auto) Neut % (Auto) Lymph % (Auto) [place] % (Auto) Eos % (Auto) Baso % (Auto) Lymph # (Auto) [place] # (Auto) Eos # (Auto) Baso # (Auto) Abs Immat Gran (auto) Absolute Neuts (auto) Absolute Nucleated RBC Nucleated RBC % (auto) Neutrophils % (Manual) Band Neutrophils % Lymphocytes % (Manual) Monocytes % (Manual) Eosinophils % (Manual) Metamyelocytes % Abs Neuts (Manual) Lymphocytes # (Manual) Monocytes # (Manual) Eosinophils # (Manual) Metamyelocytes # Toxic Vacuolation Platelet Estimate Large Platelets Plt Morphology Comment RBC Morphology [place] Cells VBG pH VBG pCO2 VBG pO2 VBG HCO3 VBG O2 Saturation VBG Base Excess Sodium Potassium Chloride Carbon Dioxide Anion Gap BUN Creatinine Estim Creat Clear Calc Estimated GFR POC Glucose 147 H Random Glucose Calcium Phosphorus Magnesium Albumin Microbiology Microbiology Results: Microbiology 10/29/20 16:41 Blood - Venous Blood Culture - Final No growth after 5 days. 10/29/20 16:41 Blood - Venous Blood Culture - Final No growth after 5 days. Quality Stroke Does the patient have a stroke diagnosis?: No VTE Prior VTE?: No VTE Risk Level:: Medical - moderate - high VTE Device Contraindication: Treatment Not Indicated VTE Drug Contraindication: N/A - Med Ordered Progress Note: A&P Assessment and plan (1) Acute respiratory distress syndrome (ARDS) due to COVID-19 virus: Status: Acute Assessment and Plan: Assessment: 79-year-old gentleman with underlying obesity, hypertension, diabetes mellitus admitted with worsening shortness of breath secondary to COVID-19 ARDS, now requiring noninvasive positive pressure ventilatory support Plan: Neuro: No acute issues. Cardiac: No acute issues. Pulmonary: Acute hypoxic respiratory failure secondary to COVID-19 ARDS. Continue to titrate off noninvasive positive pressure ventilation support as flori erated. Renal: Acute kidney injury, likely secondary to COVID-19 viral sepsis. Improving. Non oliguric. Continue to monitor renal indices and urine output Endo: No acute issues. GI: No acute issues. ID: COVID 19, treated with dexamethasone and remdesivir. Status post tocilizumab on 11/02/2020. Heme/Onc: No acute issues. Psych: No acute issues. Miscellaneous: No acute issues. Prophylaxis: Heparin Diet: Diabetic Critical care time spent: 45 (2) Acute respiratory failure with hypoxia: Status: Acute (3) Type 2 diabetes mellitus with chronic kidney disease: Status: Acute (4) Essential hypertension: Status: Acute (5) Obesity due to excess calories: Status: Acute
[2020-11-06 17:15] LABS: Glucose, Whole Blood 177 mg/dL (60-115)
--- NOTE | 2020-11-06 17:36 | PC.NURSE ---
Three attempts made at weaning off BiPAP today to Highflow+NRB. Patient unable to tolerate this amount of oxygen without desaturating to the 70s. RT placed patient on CPAP after each trial. Patient not eating today d/t continuous wearing of the mask. Blood sugars not covered with insulin. Meds as ordered. Patient able to turn in bed well with minimal assist, but becomes dyspneic very quickly. Voiding in urinal. No BM today.
[2020-11-06] MEDS: Aspirin Enteric Coated 81 MG TABLET.DR PO (20:34)
[2020-11-06] MEDS: Latanoprost 0.005 % Ophth Sol 2.5 ML DROPS 1 DROP EYE-BOTH (20:34)
[2020-11-06 20:54] LABS: Glucose, Whole Blood 167 mg/dL (60-115)
[2020-11-07] VITALS (35 sets, daily range): BP systolic 77–196; BP diastolic 28–129; PULSE 89–131; RESP 16–30; TEMP 36–37.5; O2SAT 80–93; BMI 36.4
--- NOTE | 2020-11-07 | ECG_ITS ---
Test Reason : HIGH POTASSIUM Blood Pressure : / mmHG Vent. Rate : 131 BPM Atrial Rate : 131 BPM P-R Int : 160 ms QRS Dur : 076 ms QT Int : 302 ms P-R-T Axes : 068 -25 073 degrees QTc Int : 445 ms Sinus tachycardia Low voltage QRS Borderline ECG When compared with ECG of 29-OCT-2020 15:44, Premature atrial complexes are no longer Present Heart rate has increased Referred By: Donny Mcdermott Electronically Signed By:YAZAN RUBIO
[2020-11-07] MEDS: 0.9 % Sodium Chloride Flush 3 ML SYRINGE IVFLUSH ×4 (00:01→23:32)
[2020-11-07] MEDS: Heparin Sodium,Porcine 5,000 UNIT/ML VIAL 5000 UNIT SUBCUT ×3 (00:01→23:32)
[2020-11-07 05:33] LABS: VBG Base Excess 5.2 mmol/L; VBG HCO3 31 mmol/L (22-26); VBG O2 % Saturation < 30.0 %; VBG pCO2 48 mmHg; VBG pH 7.41 (7.32-7.43); VBG pO2 23 mmHg
[2020-11-07 05:37] LABS: Venous Blood Gas Refer to POC result
[2020-11-07 05:38] LABS: Mean Corpuscular HGB Conc 32.1 g/dl (31.0-36.0); Mean Corpuscular Hemoglobin 29.2 pg (27.0-33.0); Mean Corpuscular Volume 90.8 fL (80-98); Mean Platelet Volume 11.9 fL (9.4-12.4); NRBC Pct Auto 0.1 /100WBC (0.0-0.2); Platelet Count 207 X10*3/uL (160-400); Red Blood Count 6.51 X10*6/uL (4.60-5.80); Red Cell Distribution Width 15.4 % (11.0-16.0); White Blood Count 14.8 X10*3/uL (4.8-10.8)
[2020-11-07 05:45] LABS: Hematocrit 59.1 % (42-52)
[2020-11-07] MEDS: propofoL 200 MG/20 ML VIAL 100 MG IVPUSH (05:45)
[2020-11-07] MEDS: Rocuronium Bromide 50 MG/5 ML VIAL 30 MG IVPUSH (05:50)
[2020-11-07 06:00] LABS: Albumin Level 3.7 g/dL (3.5-5.0); Anion Gap 19 (12-20); Blood Urea Nitrogen 57 mg/dL (9-16); Calcium 9.8 mg/dL (8.4-10.2); Carbon Dioxide 26 mmol/L (22-29); Chloride 105 mmol/L (96-108); Creatinine Clr Calc Pharmacy 42.8; Estimated Glomerular Filt Rate 41; Glucose Random 158 mg/dL (60-115); Phosphorus 4.8 mg/dL (2.7-4.5); Potassium 5.4 mmol/L (3.3-5.1); Sodium 145 mmol/L (135-145)
[2020-11-07] MEDS: propofoL 1,000 MG/100 ML VIAL 12.71 MG IVCONT (06:07)
[2020-11-07 06:13] LABS: Band Neutrophils Percent 6 % (3-5); Eosinophils Absolute Manual 0.3 X10*3/UL (0.0-0.8); Eosinophils Percent Manual 2 % (0-4); Monocytes Absolute Manual 0.3 X10*3/uL (0.0-1.2); Monocytes Percent Manual 2 % (2-11)
[2020-11-07 06:14] LABS: Lymphocytes Absolute Manual 0.3 X10*3/uL (0.6-4.8); Lymphocytes Percent Manual 2 % (20-40); Neutrophils Absolute Manual 13.9 X10*3/uL (2.2-7.9); Neutrophils Percent Manual 88 % (45-73)
[2020-11-07 06:15] LABS: RBC Morphology NOTED
[2020-11-07 06:18] LABS: Burr Cells 1+ (0-2) /OIF
[2020-11-07 06:19] LABS: Toxic Vacuolation PRES
[2020-11-07 06:20] LABS: Giant Platelet PRESENT; Large Platelet PRESENT; Platelet Estimate DECREASED (NORMAL); Platelet Morphology Comment NORMAL
[2020-11-07] MEDS: Cisatracurium Besylate 20 MG/10 ML VIAL IVPUSH (06:35)
--- NOTE | 2020-11-07 06:54 | W.PM.CCHP ---
Procedures Date of Service Date of Service: 11/07/20 Central Line Placement Right IJ: Central Line Comments: Patient with poor peripheral access, Right internal jugular triple lumen central venous catheter placed in usual sterile conditions under ultrasound guidance for appropriate vascular access without immediate complications. Central line position verified with Chest XRAY. Consent for Procedure: Emergent-no informed consent obtained Time out performed: Yes Sterile Technique Used: Yes Patient placed on monitor/pulse ox: Yes MD prep: mask, gown, gloves and other Central line prep: Chlorhexidine scrub Ultrasound used for placement: Yes Central line lumen inserted: triple Post procedure: sutured in place, good blood return, all ports aspirated, flushed, capped and sterile dressing applied Post procedure x-ray: tip of catheter in good position and no pneumothorax seen Patient tolerated procedure: well and no complications Complications: none
--- NOTE | 2020-11-07 06:57 | W.PM.CCHP ---
Procedures Date of Service Date of Service: 11/07/20 Intubation Intubation Comments: Patient with acute respiratory distress, refractory to CPAP, requiring emergent intubation for severe hypoxemia. Patient intubated with 7.5 cuffed ET tube under glide scope guidance with visualization of vocal cords, without immediate complications. ET tube position verified with Chest XRAY. Consent for Procedure: Emergent-no informed consent obtained Time out performed: Yes Sedative: propofol Mg given: 100 Paralytic: rocuronium Mg given: 30 Laryngoscope: fiber optic video scope ET tube size: 7.5 ET tube uncuffed: No Tube secured depth (cm): 25 Tube secured location: lips Tube placement confirmation: visualized tube passing through cords, equal breath sounds bilaterally, no breath sounds over epigastrium and confirmation by capnometry Patient tolerated procedure: well and no complications Intubation complications: none
--- NOTE | 2020-11-07 07:51 | PC.NURSE ---
Patient intubated at 0600 for acute respiratory distress and hypoxemia. Patient intubated with 7.5 at 25 at the lip. Patient placed on AC vent settings. TLC was also placed to the RIJ following intubation. A awad catheter was placed for accurate I&O. Patient tolerated all procedures well with sedation please see EMAR for times and doses.
[2020-11-07] MEDS: dexAMETHasone sod phosphate 4 MG/ML VIAL 6 MG IVPUSH (08:37)
[2020-11-07] MEDS: Sodium Bicarbonate 650 MG TABLET PO ×3 (08:38→19:37)
[2020-11-07] MEDS: Chlorhexidine Gluc Oral Rinse 15 ML MOUTHWASH BUCCAL ×3 (08:38→19:37)
[2020-11-07] MEDS: Lactated Ringers 1,000 ML 150 ML IVCONT (08:40)
[2020-11-07 09:08] LABS: Glucose, Whole Blood 187 mg/dL (60-115)
[2020-11-07] MEDS: Insulin Lispro 100 UNIT/ML 3 ML VIAL SUBCUT ×4 (09:26→23:21)
[2020-11-07] MEDS: fentaNYL citrate/NS 1,000 MCG/100 ML PLAST..BAG 5 MCG IVCONT (09:43)
[2020-11-07] MEDS: propofoL 1,000 MG/100 ML VIAL 31.77 MG IVCONT ×5 (09:43→22:22)
--- NOTE | 2020-11-07 10:12 | P.PNCC_ITS ---
Subjective Subjective Date of Service: 11/07/20 Interval History: ICU days and for acute hypoxic respiratory failure, COVID-19 ARDS. 79-year-old gentleman with underlying history of obesity, hypertension, diabetes mellitus admitted on 10/29/2020 with progressive dyspnea secondary to acute hypoxic respiratory failure secondary to COVID-19. Patient has been initially monitored on the general medical rodríguez and treated with dexamethasone and remdesivir. His hospital course was significant for progressive increasing supplemental oxygen requirements and on 11/01/2020 he required transferred to intensive care unit for initiation of noninvasive positive pressure ventilation support, as he has failed high-flow nasal cannula. Overnight with increasing FiO2 requirements failing noninvasive positive pressure ventilation requiring intubation and ventilatory support. Critical Care Time (minutes): 45 Physical Exam Vital Signs: Vital Signs: Last Vital Signs Temp 99.3 F 11/07/20 10:00 Pulse 117 H 11/07/20 10:00 Resp 30 H 11/07/20 10:00 BP 136/87 11/07/20 10:00 Pulse Ox 92 11/07/20 10:00 Body Mass Index 36.4 Const: General: no acute distress and other (Sedated on the vent) Eyes: Sclerae: sclerae normal EOM: EOMs intact bilaterally Neck: Neck: Yes no lymphadenopathy, Yes trachea midline and Yes supple Resp: Auscultation: crackles (Diffuse bilateral) Cardio: Rate: regular rate Rhythm: regular rhythm Heart sounds: no gallops, no murmurs and no rubs GI: Palpation (GI): Soft to palpation and Other GI palpation findings present ( Nontender) Auscultation: normal bowel sounds Extrem: General: No clubbing, No cyanosis and Yes pedal edema (Trace bilateral) Objective Data Labs CBC & Chem 7: 11/07/20 05:26 11/07/20 05:26 Labs: Laboratory Results - last 24 hr 11/06/20 11/06/20 11/06/20 11:14 17:10 20:37 WBC RBC Hgb Hct MCV MCH MCHC RDW Plt Count MPV Immature Gran % (Auto) Neut % (Auto) Lymph % (Auto) [place] % (Auto) Eos % (Auto) Baso % (Auto) Lymph # (Auto) [place] # (Auto) Eos # (Auto) Baso # (Auto) Abs Immat Gran (auto) Absolute Neuts (auto) Absolute Nucleated RBC Nucleated RBC % (auto) Neutrophils % (Manual) Band Neutrophils % Lymphocytes % (Manual) Monocytes % (Manual) Eosinophils % (Manual) Abs Neuts (Manual) Lymphocytes # (Manual) Monocytes # (Manual) Eosinophils # (Manual) Toxic Vacuolation Platelet Estimate Large Platelets [place] Platelets Plt Morphology Comment RBC Morphology [place] Cells VBG pH VBG pCO2 VBG pO2 VBG HCO3 VBG O2 Saturation VBG Base Excess Sodium Potassium Chloride Carbon Dioxide Anion Gap BUN Creatinine Estim Creat Clear Calc Estimated GFR POC Glucose 147 H 177 H 167 H Random Glucose Calcium Phosphorus Magnesium Albumin 11/07/20 11/07/20 11/07/20 05:26 05:26 05:28 WBC 14.8 H RBC 6.51 H Hgb 19.0 H Hct 59.1 H MCV 90.8 MCH 29.2 MCHC 32.1 RDW 15.4 Plt Count 207 MPV 11.9 Immature Gran % (Auto) Cancelled Neut % (Auto) Cancelled Lymph % (Auto) Cancelled [place] % (Auto) Cancelled Eos % (Auto) Cancelled Baso % (Auto) Cancelled Lymph # (Auto) Cancelled [place] # (Auto) Cancelled Eos # (Auto) Cancelled Baso # (Auto) Cancelled Abs Immat Gran (auto) Cancelled Absolute Neuts (auto) Cancelled Absolute Nucleated RBC 0.020 H Nucleated RBC % (auto) 0.1 Neutrophils % (Manual) 88 H Band Neutrophils % 6 H Lymphocytes % (Manual) 2 L Monocytes % (Manual) 2 Eosinophils % (Manual) 2 Abs Neuts (Manual) 13.9 H Lymphocytes # (Manual) 0.3 L Monocytes # (Manual) 0.3 Eosinophils # (Manual) 0.3 Toxic Vacuolation PRES Platelet Estimate DECREASED Large Platelets PRESENT [place] Platelets PRESENT Plt Morphology Comment NORMAL RBC Morphology NOTED [place] Cells 1+ (0-2) VBG pH 7.41 VBG pCO2 48 VBG pO2 23 VBG HCO3 31 H VBG O2 Saturation < 30.0 VBG Base Excess 5.2 Sodium 145 Potassium 5.4 H Chloride 105 Carbon Dioxide 26 Anion Gap 19 BUN 57 H Creatinine 1.62 H Estim Creat Clear Calc 42.8 Estimated GFR 41 POC Glucose Random Glucose 158 H D Calcium 9.8 Phosphorus 4.8 H Magnesium 2.0 Albumin 3.7 11/07/20 08:44 WBC RBC Hgb Hct MCV MCH MCHC RDW Plt Count MPV Immature Gran % (Auto) Neut % (Auto) Lymph % (Auto) [place] % (Auto) Eos % (Auto) Baso % (Auto) Lymph # (Auto) [place] # (Auto) Eos # (Auto) Baso # (Auto) Abs Immat Gran (auto) Absolute Neuts (auto) Absolute Nucleated RBC Nucleated RBC % (auto) Neutrophils % (Manual) Band Neutrophils % Lymphocytes % (Manual) Monocytes % (Manual) Eosinophils % (Manual) Abs Neuts (Manual) Lymphocytes # (Manual) Monocytes # (Manual) Eosinophils # (Manual) Toxic Vacuolation Platelet Estimate Large Platelets [place] Platelets Plt Morphology Comment RBC Morphology [place] Cells VBG pH VBG pCO2 VBG pO2 VBG HCO3 VBG O2 Saturation VBG Base Excess Sodium Potassium Chloride Carbon Dioxide Anion Gap BUN Creatinine Estim Creat Clear Calc Estimated GFR POC Glucose 187 H Random Glucose Calcium Phosphorus Magnesium Albumin Microbiology Microbiology Results: Microbiology 10/29/20 16:41 Blood - Venous Blood Culture - Final No growth after 5 days. 10/29/20 16:41 Blood - Venous Blood Culture - Final No growth after 5 days. Quality Stroke Does the patient have a stroke diagnosis?: No VTE Prior VTE?: No VTE Risk Level:: Medical - moderate - high VTE Device Contraindication: Treatment Not Indicated VTE Drug Contraindication: N/A - Med Ordered Progress Note: A&P Assessment and plan (1) Acute respiratory distress syndrome (ARDS) due to COVID-19 virus: Status: Acute Assessment and Plan: Assessment: 79-year-old gentleman with underlying obesity, hypertension, diabetes mellitus admitted with worsening shortness of breath secondary to COVID-19 ARDS, now requiring ventilatory support Plan: Neuro: No acute issues. Cardiac: No acute issues. Pulmonary: Acute hypoxic respiratory failure secondary to COVID-19 ARDS. FiO2 requirements worsened overnight. Failed noninvasive positive pressure ventilation support and required intubation and ventilatory support. Renal: Acute kidney injury, likely secondary to COVID-19 viral sepsis. Non oliguric. Continue to monitor renal indices and urine output Endo: No acute issues. Underlying diabetes mellitus GI: No acute issues. ID: COVID 19, treated with dexamethasone and remdesivir. Status post tocilizumab on 11/02/2020. Heme/Onc: No acute issues. Psych: No acute issues. Miscellaneous: No acute issues. Prophylaxis: Heparin, ppi Diet: Tube feeds Critical care time spent: 45 (2) Acute respiratory failure with hypoxia: Status: Acute (3) Type 2 diabetes mellitus with diabetic polyneuropathy: Status: Acute (4) Essential hypertension: Status: Acute (5) Type 2 diabetes mellitus with chronic kidney disease: Status: Acute (6) Obesity due to excess calories: Status: Acute
[2020-11-07 11:53] LABS: Glucose, Whole Blood 249 mg/dL (60-115)
[2020-11-07 14:08] LABS: VBG Base Excess -4.6 mmol/L; VBG HCO3 24 mmol/L (22-26); VBG pCO2 58 mmHg; VBG pH 7.22 (7.32-7.43); VBG pO2 63 mmHg
[2020-11-07 14:12] LABS: Basophils Absolute Auto 0.1 X10*3/uL (0.0-0.2); Basophils Percent Auto 0.3 % (0-2); Eosinophils Percent Auto 0.1 % (0-4); Hemoglobin 17.8 g/dl (14.0-18.0); Imm Gran Abs Auto 1.35 X10*3/uL (0.00-0.03); Lymphocytes Absolute Auto 1.2 X10*3/uL (1.2-4.9); Lymphocytes Percent Auto 4.4 % (20-40); MANUAL DIFF FLAG SCAN; Mean Corpuscular HGB Conc 31.7 g/dl (31.0-36.0); Mean Corpuscular Hemoglobin 30.1 pg (27.0-33.0); Mean Corpuscular Volume 94.9 fL (80-98); Mean Platelet Volume 11.9 fL (9.4-12.4); Monocytes Absolute Auto 0.3 X10*3/uL (0.1-1.2); Monocytes Percent Auto 1.1 % (2-11); NRBC Pct Auto 0.3 /100WBC (0.0-0.2); Neutrophils Absolute Auto 24.2 X10*3/uL (2.0-8.3); Neutrophils Percent Auto 89.1 % (45-73); Platelet Count 268 X10*3/uL (160-400); Red Blood Count 5.91 X10*6/uL (4.60-5.80); Red Cell Distribution Width 14.6 % (11.0-16.0); SCAN SMEAR FLAG 1; White Blood Count 27.1 X10*3/uL (4.8-10.8)
[2020-11-07 14:19] LABS: Hematocrit 56.1 % (42-52)
[2020-11-07 14:32] LABS: SLIDE REVIEW VERIFIED
[2020-11-07 14:46] LABS: Anion Gap 29 (12-20); Blood Urea Nitrogen 67 mg/dL (9-16); Calcium 9.3 mg/dL (8.4-10.2); Carbon Dioxide 21 mmol/L (22-29); Chloride 102 mmol/L (96-108); Creatinine Clr Calc Pharmacy 24.4; Estimated Glomerular Filt Rate 22; Glucose Random 288 mg/dL (60-115); Potassium 6.7 mmol/L (3.3-5.1); Sodium 145 mmol/L (135-145); Troponin-I High Sensitivity 38.4 ng/L (<3.5-35.0)
[2020-11-07] MEDS: Sodium Bicarbonate 8.4% 150 MEQ in Dextrose 5 % 850 ML 100 MEQ IV ×2 (15:06→23:32)
[2020-11-07] MEDS: Sodium Bicarbonate 8.4% 50 MEQ/50 ML VIAL IVPUSH (15:38)
[2020-11-07] MEDS: Sodium Zirconium Cyclosilicate 10 GM POWD.PACK PO (15:38)
[2020-11-07] MEDS: fentaNYL citrate/NS 1,000 MCG/100 ML PLAST..BAG 10 MCG IVCONT (15:44)
[2020-11-07] MEDS: Calcium Gluconate/NaCl,Iso-Osm 2 GM/100 ML PLAST..BAG IV (15:45)
[2020-11-07] MEDS: Piperacillin Sodium/Tazobactam 3.375 GM in 0.9 % Sodium Chloride 50 ML IV ×2 (15:45→19:37)
[2020-11-07] MEDS: vancomycin HCL 1,500 MG in 0.9 % Sodium Chloride 500 ML 333.33 MG IV (15:47)
[2020-11-07 17:24] LABS: Lactic Acid 10.1 mmol/L (0.5-2.0)
[2020-11-07 18:13] LABS: Venous Blood Gas Refer to POC result
[2020-11-07 18:22] LABS: Venous Blood Gas Refer to POC result
[2020-11-07 18:25] LABS: VBG Base Excess -6.4 mmol/L; VBG HCO3 21 mmol/L (22-26); VBG pCO2 48 mmHg; VBG pH 7.24 (7.32-7.43); VBG pO2 59 mmHg
[2020-11-07 18:38] LABS: Reflex Lactate? Lactic Acid Added
[2020-11-07 18:38] LABS: Glucose, Whole Blood 272 mg/dL (60-115)
[2020-11-07 18:58] LABS: Lactic Acid 8.4 mmol/L (0.5-2.0)
[2020-11-07 19:00] LABS: Anion Gap 28 (12-20); Blood Urea Nitrogen 68 mg/dL (9-16); Calcium 9.2 mg/dL (8.4-10.2); Carbon Dioxide 21 mmol/L (22-29); Chloride 101 mmol/L (96-108); Creatinine Clr Calc Pharmacy 24.7; Estimated Glomerular Filt Rate 22; Glucose Random 404 mg/dL (60-115); Potassium 6.2 mmol/L (3.3-5.1); Sodium 144 mmol/L (135-145)
--- NOTE | 2020-11-07 19:16 | PC.NURSE ---
Pt this morning reaching towards ET tube stacking breaths on the ventilator. Propofol increased to 50mcg/kg/min Fentanyl was started at 25mcg/hr, ulitmately up to 150mcg/hr as RR was up to 35 br/min. Pt stopped making urine, awad care was done, irrigated/flushed, bladder scanned for 13ml in bladder. Pt was hypotensive SBP 80s, levo added at 0.05 SBP in 160mmHg, dropped to 0.01mcg/kg/min SBP 200s. levo off. MD aware. SBP dropped to 40s.. levo back on up to 1.5mcg/kg/min x1 amp BICARB given VBG done met acidosis, x1 more AMP bicarb given. Bicarb drip 150mEq at 100ml/hr started, wbc 27 vanco+zosyn started, Ca++ gluconate 2G given, K 6.7, medication given to reduce K, lactic 10.1. MD aware. CXR completed, EKG completed. Levo at 0.6mcg/kg/min. BP 131/52 at this time. Pt started making urine at 1800, put out 125 dark yelow urine. Crit K down to 6.2, repeat lactic 8.4. Bed locked and in lowest position, semi fowlers. Glucerna started and kept at 10ml/hr per MD, adventitious sounds when auscultating/adding in air. Endless amounts of air when aspirating OG tube. Family Grace updated.
[2020-11-07] MEDS: Latanoprost 0.005 % Ophth Sol 2.5 ML DROPS 1 DROP EYE-BOTH (20:13)
[2020-11-07 20:36] LABS: Reflex Lactate? Lactic Acid Added
--- NOTE | 2020-11-07 21:06 | P.EN_ITS ---
Event Note Date of Service: 11/07/20 Event Note: Patient unable to tolerate? transport? vent? for CT scan of the abdo men/chest,? SpO2? down to 80s? on volume control? and? down to? 70s? while laying flat. ? Goals of care conversation held? over the phone with daughters Lisa and Aaliyah? and informed of patient worsening in condition? as well as poor prognosis.? Both daughters would like to continue ? doing everything?.? Will continue full code
[2020-11-07 21:16] LABS: ~Lactic Acid-LAB USE ONLY 5.4 mmol/L (0.5-2.0)
[2020-11-07] MEDS: fentaNYL citrate/NS 1,000 MCG/100 ML PLAST..BAG 15 MCG IVCONT (22:22)
[2020-11-07 23:02] LABS: Reflex Lactate? 2 Y
[2020-11-07 23:54] LABS: Glucose, Whole Blood 404 mg/dL (60-115)
[2020-11-08] VITALS (31 sets, daily range): BP systolic 94–159; BP diastolic 31–70; PULSE 87–117; RESP 22–27; TEMP 36.7–37.2; O2SAT 61–92; BMI 38.9
[2020-11-08 00:40] LABS: ~Lactic Acid-LAB USE ONLY 4.7 mmol/L (0.5-2.0)
[2020-11-08] MEDS: propofoL 1,000 MG/100 ML VIAL 31.77 MG IVCONT ×9 (01:20→23:20)
[2020-11-08] MEDS: Piperacillin Sodium/Tazobactam 3.375 GM in 0.9 % Sodium Chloride 50 ML IV ×4 (03:26→20:14)
[2020-11-08] MEDS: fentaNYL citrate/NS 1,000 MCG/100 ML PLAST..BAG 15 MCG IVCONT ×4 (04:06→23:27)
[2020-11-08 05:41] LABS: VBG Base Excess 6.6 mmol/L; VBG HCO3 36 mmol/L (22-26); VBG pCO2 71 mmHg; VBG pH 7.31 (7.32-7.43); VBG pO2 44 mmHg
[2020-11-08 05:42] LABS: Venous Blood Gas Refer to POC result
[2020-11-08] MEDS: Insulin Lispro 100 UNIT/ML 3 ML VIAL SUBCUT (05:44)
[2020-11-08 05:49] LABS: Basophils Absolute Auto 0.1 X10*3/uL (0.0-0.2); Basophils Percent Auto 0.2 % (0-2); Eosinophils Percent Auto 0.1 % (0-4); Hematocrit 52.8 % (42-52); Hemoglobin 16.3 g/dl (14.0-18.0); Imm Gran Pct Auto 2.1 % (0.0-0.4); Lymphocytes Absolute Auto 0.4 X10*3/uL (1.2-4.9); Lymphocytes Percent Auto 1.5 % (20-40); MANUAL DIFF FLAG SCAN; Mean Corpuscular HGB Conc 30.9 g/dl (31.0-36.0); Mean Corpuscular Hemoglobin 29.2 pg (27.0-33.0); Mean Corpuscular Volume 94.5 fL (80-98); Monocytes Absolute Auto 0.4 X10*3/uL (0.1-1.2); Monocytes Percent Auto 1.6 % (2-11); NRBC Pct Auto 0.3 /100WBC (0.0-0.2); Neutrophils Percent Auto 94.5 % (45-73); Platelet Count 204 X10*3/uL (160-400); Red Blood Count 5.59 X10*6/uL (4.60-5.80); Red Cell Distribution Width 14.6 % (11.0-16.0); SCAN SMEAR FLAG 1; White Blood Count 23.3 X10*3/uL (4.8-10.8)
[2020-11-08 06:07] LABS: Anion Gap 20 (12-20); Blood Urea Nitrogen 70 mg/dL (9-16); Calcium 8.3 mg/dL (8.4-10.2); Carbon Dioxide 30 mmol/L (22-29); Chloride 100 mmol/L (96-108); Creatinine Clr Calc Pharmacy 25.4; Estimated Glomerular Filt Rate 22; Glucose Random 408 mg/dL (60-115); Phosphorus 6.4 mg/dL (2.7-4.5); Potassium 5.5 mmol/L (3.3-5.1); Sodium 144 mmol/L (135-145)
[2020-11-08 06:13] LABS: SLIDE REVIEW VERIFIED
[2020-11-08] MEDS: 0.9 % Sodium Chloride Flush 3 ML SYRINGE IVFLUSH ×3 (07:20→23:22)
[2020-11-08 07:23] LABS: Glucose, Whole Blood 382 mg/dL (60-115)
[2020-11-08] MEDS: Chlorhexidine Gluc Oral Rinse 15 ML MOUTHWASH BUCCAL ×3 (09:47→20:14)
[2020-11-08] MEDS: dexAMETHasone sod phosphate 4 MG/ML VIAL 6 MG IVPUSH (09:47)
--- NOTE | 2020-11-08 10:19 | MHC.CM.PN ---
Per discussion with care team at rounds: pt is exhibiting signs of multi organ failure and overall condition is grave with little chance for meaningful recovery. MD to discuss options with pt's dtr/HCP Aviva. CM to follow for d/c needs
--- NOTE | 2020-11-08 10:44 | MHC.CLN ---
PT IS NOW INTUBATED AND SEDATED RECOMMEND TF NEPRO AT MAX GOAL RATE 20ML/HR WITH 300CC FREE WATER Q 6 HRS TO PROVIDE 864KCALS (1703KCALS WITH SEDATION; 26KCALS/KG), 39G PROTEIN, 1550CC TOTAL WATER FROM FORMULA AND FLUSHES (24ML/KG) MONITOR TOLERANCE, RESIDUALS AND LYTES
[2020-11-08] MEDS: Insulin Regular/NS 100 UNIT/100 ML PLAST..BAG IVCONT ×2 (10:56→23:19)
[2020-11-08] MEDS: Sodium Zirconium Cyclosilicate 10 GM POWD.PACK PO ×3 (10:56→22:27)
[2020-11-08] MEDS: Heparin Sodium,Porcine 5,000 UNIT/ML VIAL 5000 UNIT SUBCUT (11:26)
[2020-11-08 11:34] LABS: VBG HCO3 34 mmol/L (22-26); VBG pCO2 70 mmHg; VBG pH 7.29 (7.32-7.43); VBG pO2 43 mmHg
--- NOTE | 2020-11-08 11:42 | PM.CCPN ---
Subjective Subjective Date of Service: 11/08/20 Interval History: Mr. Sal Blanton was transferred to the ICU on Nov 01 with acute hypoxemic respiratory failure secondary to COVID-19 pneumonia. The patient is a 79-year-old gentleman with underlying history of obesity, hypertension, hyperlipidemia, diabetes mellitus, and CKD.? He presented to [facility] on 10/29/2020 with progressive dyspnea, cough, nausea, and diarrhea.? Sat was 88% on RA.? BUN/creat 54/2.2, DDimer 699, Ferritin 878, PCT 5.3. ?COVID positive.? Perfusion scan showed no defects. ?Admitted to Medicine with Dx COVID pneumonia and treated with dexamethasone and remdesivir.? I will estimate symptom onset date as approximately October 27. Hospital course marked by increasing supplemental oxygen requirements, including 100% HFNC.? Has been afebrile throughout.? On 11/01/2020 required transferred to intensive care unit for NIV.? Was holding his own on CPAP.? Was given tocilizumab on 11/02/2020.? On Nov 04, echo showed normal LV size, thickness, and systolic function, normal RV size and function, mild , normal IVC, with normal inspiratory collapse. Over this past Sunday night, the patient developed increasing respiratory distress and hypoxemia.? He required tracheal intubation early yesterday morning.? FiO2 since then has been 100%.? Sat?s last night were in the low 80s, got up to 92% early this morning, but since then decreasing progressively, confirmed by ABG, now in the 60s.? Patient has been too unstable to go for CT scan.? Chest x-ray yesterday morning showed no subcutaneous air, mediastinal emphysema, or pneumothorax. On exam today, sedated on propofol @ 50ug.? Also on bicarb drip @ 150cc/hr, Levophed at 0.4u, and started today on insulin drip @ 8u/hr.? Well sedated, breathing easy.? HR 97, sinus rhythm, BP 112/52.? On PC ventilation. ?Central venous blood gas this morning showed 7.31/71/+6 on the bicarb drip. ?We turned his pressure control rate up to 26.? On /100%, respiratory rate is 26, Vt 430 cc, Ve 11 L, PIP 28, ETCO2 31, Sat 70%.? ABG 7.28/67/48/+4, w SaO2 70%.? Afebrile.? Pupils equal round, 3-4 mm. No jugular venous distention at 30 degrees.? Chest clear to auscultation with coarse breath sounds.? Normal expiratory phase.? Heart tones very soft.? I heard no murmurs or gallops.? Abdomen is obese, benign.? He has no peripheral. LABORATORY DATA:? As below.? Notably, white count this morning down to 23, hemoglobin down to 16, sodium steady at 01:44, BUN/creatinine up to 70/2.7, bicarb 30 on the bicarb drip, potassium down to 5.5, glucose up to 408, phosphorus up to 6.4. IMPRESSION: 1. 79-year-old gentleman with underlying obesity, hypertension, diabetes mellitus, and CKD 2. COVID-19 pneumonia. 3. ARDS 4. Acute severe hypoxemic respiratory failure secondary to above. (PE ?ruled out? by trop and BNP.) Failed steroids and remdesivir and tocilizumab. ?Requiring mechanical ventilation.? Driving pressure is relatively low.? I?ve changed his Decadron to Solumedrol 80mg bid.? W 5. Now with severe hypercarbic respiratory failure.? This is end-stage ARDS. 6. Progressive [id number] kidney injury.? Been getting IV fluids > 200cc/hr, with no response.? A bad prognostic sign. ? 7. Viral septic shock. 8. ID: ?Has been afebrile.? CXR shows no discreet infiltrate. ?WBC up yesterday, but down today -- ? acute phase reactant. ?Blood cult from 10/29 are negative.? Repeat cx from yesterday negative so far.? We?ll send a sputum GS. 9. Hyperglycemia:? Changed his bicarb to sterile water.? Started insulin drip. 10. Hypernatremia.? Have to tolerate that for now. 11. Hyperkalemia.? The bicarb and the insulin should help.? We will not dialyze the patient. Discussed at length with Dr. joseph, in multiple telephone conversations. ?I spoke to the patient's daughter Grace ([phone]), the healthcare proxy, at length, twice this morning.? I indicated to her that unfortunately, with the patient's age, comorbidities, and current indices, his mortality rate is 99+%.? I told her that in my opinion we should let him in peace.? I told her that we would not do CPR or dialysis.? She understands the situation she wants to gather her family and do face time with the patient.? It seems to me that after that, she will be comfortable withdrawing critical care support and establishing comfort measure status. Critical Care Time (including full chart review on hospital course summary): 110+ min Critical Care Time (minutes): 110 Physical Exam Vital Signs: Vital Signs: Last Vital Signs Temp 98.2 F 11/08/20 11:00 Pulse 94 11/08/20 11:00 Resp 26 H 11/08/20 11:00 BP 95/35 L 11/08/20 11:00 Pulse Ox 78 L 11/08/20 11:00 Body Mass Index 38.9 Objective Data Labs CBC & Chem 7: 11/08/20 05:35 11/08/20 05:35 Labs: Laboratory Results - last 24 hr 11/07/20 11/07/20 11/07/20 11:47 14:01 14:01 WBC 27.1 H RBC 5.91 H Hgb 17.8 Hct 56.1 H MCV 94.9 MCH 30.1 MCHC 31.7 RDW 14.6 Plt Count 268 D MPV 11.9 Immature Gran % (Auto) 5.0 H Neut % (Auto) 89.1 H Lymph % (Auto) 4.4 L [place] % (Auto) 1.1 L Eos % (Auto) 0.1 Baso % (Auto) 0.3 Lymph # (Auto) 1.2 [place] # (Auto) 0.3 Eos # (Auto) 0.0 Baso # (Auto) 0.1 Abs Immat Gran (auto) 1.35 H Absolute Neuts (auto) 24.2 H Absolute Nucleated RBC 0.090 H Nucleated RBC % (auto) 0.3 H Smear Tech's Comments VERIFIED VBG pH VBG pCO2 VBG pO2 VBG HCO3 VBG O2 Saturation VBG Base Excess Sodium 145 Potassium 6.7 H* D Chloride 102 Carbon Dioxide 21 L Anion Gap 29 H BUN 67 H Creatinine 2.79 H Estim Creat Clear Calc 24.4 Estimated GFR 22 POC Glucose 249 H Random Glucose 288 H D Lactic Acid Lactic Acid Fup @ 2Hr Lactic Acid Fup @ 4Hr Calcium 9.3 Phosphorus Magnesium Troponin I High Sens Albumin 11/07/20 11/07/20 11/07/20 14:01 14:02 16:32 WBC RBC Hgb Hct MCV MCH MCHC RDW Plt Count MPV Immature Gran % (Auto) Neut % (Auto) Lymph % (Auto) [place] % (Auto) Eos % (Auto) Baso % (Auto) Lymph # (Auto) [place] # (Auto) Eos # (Auto) Baso # (Auto) Abs Immat Gran (auto) Absolute Neuts (auto) Absolute Nucleated RBC Nucleated RBC % (auto) Smear Tech's Comments VBG pH 7.22 L VBG pCO2 58 VBG pO2 63 VBG HCO3 24 VBG O2 Saturation 83.0 VBG Base Excess -4.6 Sodium Potassium Chloride Carbon Dioxide Anion Gap BUN Creatinine Estim Creat Clear Calc Estimated GFR POC Glucose Random Glucose Lactic Acid 10.1 H* Lactic Acid Fup @ 2Hr Lactic Acid Fup @ 4Hr Calcium Phosphorus Magnesium Troponin I High Sens 38.4 H* D Albumin 11/07/20 11/07/20 11/07/20 18:13 18:15 18:15 WBC RBC Hgb Hct MCV MCH MCHC RDW Plt Count MPV Immature Gran % (Auto) Neut % (Auto) Lymph % (Auto) [place] % (Auto) Eos % (Auto) Baso % (Auto) Lymph # (Auto) [place] # (Auto) Eos # (Auto) Baso # (Auto) Abs Immat Gran (auto) Absolute Neuts (auto) Absolute Nucleated RBC Nucleated RBC % (auto) Smear Tech's Comments VBG pH VBG pCO2 VBG pO2 VBG HCO3 VBG O2 Saturation VBG Base Excess Sodium 144 Potassium 6.2 H* Chloride 101 Carbon Dioxide 21 L Anion Gap 28 H BUN 68 H Creatinine 2.76 H Estim Creat Clear Calc 24.7 Estimated GFR 22 POC Glucose 272 H Random Glucose 404 H* Lactic Acid 8.4 H* Lactic Acid Fup @ 2Hr Lactic Acid Fup @ 4Hr Calcium 9.2 Phosphorus Magnesium Troponin I High Sens Albumin 11/07/20 11/07/20 11/07/20 18:20 20:56 23:18 WBC RBC Hgb Hct MCV MCH MCHC RDW Plt Count MPV Immature Gran % (Auto) Neut % (Auto) Lymph % (Auto) [place] % (Auto) Eos % (Auto) Baso % (Auto) Lymph # (Auto) [place] # (Auto) Eos # (Auto) Baso # (Auto) Abs Immat Gran (auto) Absolute Neuts (auto) Absolute Nucleated RBC Nucleated RBC % (auto) Smear Tech's Comments VBG pH 7.24 L VBG pCO2 48 VBG pO2 59 VBG HCO3 21 L VBG O2 Saturation 79.0 VBG Base Excess -6.4 Sodium Potassium Chloride Carbon Dioxide Anion Gap BUN Creatinine Estim Creat Clear Calc Estimated GFR POC Glucose 404 H* Random Glucose Lactic Acid Lactic Acid Fup @ 2Hr 5.4 H* Lactic Acid Fup @ 4Hr Calcium Phosphorus Magnesium Troponin I High Sens Albumin 11/07/20 11/08/20 11/08/20 23:20 05:33 05:35 WBC 23.3 H RBC 5.59 Hgb 16.3 Hct 52.8 H MCV 94.5 MCH 29.2 MCHC 30.9 L RDW 14.6 Plt Count 204 MPV 12.0 Immature Gran % (Auto) 2.1 H Neut % (Auto) 94.5 H Lymph % (Auto) 1.5 L [place] % (Auto) 1.6 L Eos % (Auto) 0.1 Baso % (Auto) 0.2 Lymph # (Auto) 0.4 L [place] # (Auto) 0.4 Eos # (Auto) 0.0 Baso # (Auto) 0.1 Abs Immat Gran (auto) 0.50 H Absolute Neuts (auto) 22.0 H Absolute Nucleated RBC 0.060 H Nucleated RBC % (auto) 0.3 H Smear Tech's Comments VERIFIED VBG pH VBG pCO2 VBG pO2 VBG HCO3 VBG O2 Saturation VBG Base Excess Sodium Potassium Chloride Carbon Dioxide Anion Gap BUN Creatinine Estim Creat Clear Calc Estimated GFR POC Glucose 382 H* Random Glucose Lactic Acid Lactic Acid Fup @ 2Hr Lactic Acid Fup @ 4Hr 4.7 H* Calcium Phosphorus Magnesium Troponin I High Sens Albumin 11/08/20 11/08/20 11/08/20 05:35 05:36 11:29 WBC RBC Hgb Hct MCV MCH MCHC RDW Plt Count MPV Immature Gran % (Auto) Neut % (Auto) Lymph % (Auto) [place] % (Auto) Eos % (Auto) Baso % (Auto) Lymph # (Auto) [place] # (Auto) Eos # (Auto) Baso # (Auto) Abs Immat Gran (auto) Absolute Neuts (auto) Absolute Nucleated RBC Nucleated RBC % (auto) Smear Tech's Comments VBG pH 7.31 L 7.29 L VBG pCO2 71 70 VBG pO2 44 43 VBG HCO3 36 H 34 H VBG O2 Saturation 62.0 63.0 VBG Base Excess 6.6 5.0 Sodium 144 Potassium 5.5 H Chloride 100 Carbon Dioxide 30 H Anion Gap 20 BUN 70 H Creatinine 2.77 H Estim Creat Clear Calc 25.4 Estimated GFR 22 POC Glucose Random Glucose 408 H* Lactic Acid Lactic Acid Fup @ 2Hr Lactic Acid Fup @ 4Hr Calcium 8.3 L D Phosphorus 6.4 H Magnesium 2.0 Troponin I High Sens Albumin 3.0 L Microbiology Microbiology Results: Microbiology 10/29/20 16:41 Blood - Venous Blood Culture - Final No growth after 5 days. 10/29/20 16:41 Blood - Venous Blood Culture - Final No growth after 5 days. Quality Stroke Does the patient have a stroke diagnosis?: No VTE Prior VTE?: No VTE Risk Level:: Medical - moderate - high VTE Device Contraindication: Treatment Not Indicated VTE Drug Contraindication: N/A - Med Ordered Critical Care Time Critical Care Time (minutes): 120
[2020-11-08 11:49] LABS: Glucose, Whole Blood 312 mg/dL (60-115)
[2020-11-08 11:56] LABS: ABG Base Excess 6.5 mmol/L; ABG HCO3 35 mmol/L (22-26); ABG pCO2 70 mmHg (32-45); ABG pCO2 TC 69 mmHg (32-45); ABG pH 7.31 (7.35-7.45); ABG pH TC 7.31 (7.35-7.45); ABG pO2 46 mmHg (83-108); ABG pO2 TC 46 (83-108)
--- NOTE | 2020-11-08 12:20 | PC.NURSE ---
O2 sat down to 67-72% on max ventilatory settings and with good pleth on monitor. Current vent settings: PC // rate increased to 26 by MD, 100% Fio2. Sedated on Propofol & Fentanyl gtts. Absent cough and gag, no pain response - MD aware and at bedside. BP 99/34 map 59 - continued on Levophed gtt. Levophed gtt not to be increased per MD. NSR on monitor HR 90's, no ectopy. 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
[2020-11-08 13:32] LABS: ABG Refer to POC result
[2020-11-08 13:54] LABS: ABG Refer to POC result
[2020-11-08 14:03] LABS: Glucose, Whole Blood 335 mg/dL (60-115)
[2020-11-08 16:18] LABS: Glucose, Whole Blood 272 mg/dL (60-115)
[2020-11-08 16:54] LABS: Venous Blood Gas Refer to POC result
[2020-11-08 17:19] LABS: C Reactive Protein 2.14 mg/dL (< or = 0.50)
[2020-11-08 17:26] LABS: B Type Natriuretic Peptide 189 pg/mL (<100)
[2020-11-08] MEDS: methylPREDNISolone Sod Succ 125 MG/2 ML VIAL 80 MG IVPUSH (17:32)
[2020-11-08 17:40] LABS: Procalcitonin 1.33 ng/mL
[2020-11-08 17:40] LABS: Lactic Acid 4.2 mmol/L (0.5-2.0)
--- NOTE | 2020-11-08 17:43 | PC.NURSE ---
S/E Afebrile, WBC down to 23.3, Lactic 4.3; Lactic draws discontinued by MD Continued on Zosyn 3.375 IV; Second set of BCs pending Sedated on Propofol & Fentanyl gtts Pupils 2mm sluggish, equal; Absent cough, gag, and pain response Sinus tach w/ PACs vs Atrial Tach, HR 110's - MD aware Continued on Levophed gtt; MAP maintaining >60 Generalized edema; BNP 189 Continued on Heparin for DVT R IJ TLC patent - dressing changed LS dim throughout; Thick cream/pink tinged inline secretions - SC pending 1130 VBGs: 7.29/70/43/34; 1150 ABGs: 7.31/69/46/35 #7.5 ETT, 25 cm @ lip ; Vent settings: PC , rate 26, 100% Fio2 SPo2 maintaining mid to lows 70's w/ good pleth Swicthed from Decadron to Solumedrol 80mg IVP q12 Abdomen large, round, faint BS, no BM; last BM 11/02 - MD aware Feeds switched to Nephro max 20cc/hr POCs trending 300's - started on Insulin gtt and titrated per MD order Chest/Abdomen CT on hold per MD Ashwin herrera, draining dark concentrated urine, approx 50-75cc/hr NA Bicard gtt w/ D5 switched to NA Bicarb 150mcq gtt in NS @ 150cc/hr OGT Bicarb 650 TID discontinued No skin integrity concerns, bathed, unable to repo q2hr d/t Spo2 - MD aware HCP Grace updated by this RN & MD - patient switched to DNR Plan for family facetime 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
[2020-11-08 18:11] LABS: Reflex Lactate? No addnl Lactic Acid
[2020-11-08 18:11] LABS: Cancel Lactic Acid Canceled
[2020-11-08 18:30] LABS: Ferritin 2479 ng/mL (20-250)
[2020-11-08 18:48] LABS: D Dimer 472 NG/ML
[2020-11-08] MEDS: Latanoprost 0.005 % Ophth Sol 2.5 ML DROPS 1 DROP EYE-BOTH (20:14)
[2020-11-08 20:31] LABS: Glucose, Whole Blood 197 mg/dL (60-115)
[2020-11-08 20:31] LABS: Glucose, Whole Blood 189 mg/dL (60-115)
[2020-11-08 23:21] LABS: Glucose, Whole Blood 166 mg/dL (60-115)
[2020-11-09] VITALS (33 sets, daily range): BP systolic 75–167; BP diastolic 38–90; PULSE 75–140; RESP 18–31; TEMP 36.2–37.7; O2SAT 56–87
[2020-11-09 00:36] LABS: Glucose, Whole Blood 165 mg/dL (60-115)
[2020-11-09] MEDS: Heparin Sodium,Porcine 5,000 UNIT/ML VIAL 5000 UNIT SUBCUT ×2 (00:40→10:39)
[2020-11-09] MEDS: propofoL 1,000 MG/100 ML VIAL 31.77 MG IVCONT ×4 (02:33→18:15)
[2020-11-09] MEDS: Piperacillin Sodium/Tazobactam 3.375 GM in 0.9 % Sodium Chloride 50 ML IV ×4 (02:34→20:39)
[2020-11-09 03:01] LABS: Glucose, Whole Blood 161 mg/dL (60-115)
[2020-11-09] MEDS: methylPREDNISolone Sod Succ 125 MG/2 ML VIAL 80 MG IVPUSH ×2 (05:21→16:19)
[2020-11-09] MEDS: fentaNYL citrate/NS 1,000 MCG/100 ML PLAST..BAG 15 MCG IVCONT ×3 (05:23→17:49)
[2020-11-09 05:35] LABS: VBG Base Excess 23.2 mmol/L; VBG HCO3 51 mmol/L (22-26); VBG pCO2 66 mmHg; VBG pO2 36 mmHg
[2020-11-09 05:38] LABS: Venous Blood Gas Refer to POC result
[2020-11-09 05:42] LABS: Hematocrit 46.8 % (42-52); Hemoglobin 14.9 g/dl (14.0-18.0); Mean Corpuscular HGB Conc 31.8 g/dl (31.0-36.0); Mean Corpuscular Volume 94.2 fL (80-98); Mean Platelet Volume 12.4 fL (9.4-12.4); NRBC Pct Auto 0.2 /100WBC (0.0-0.2); Platelet Count 145 X10*3/uL (160-400); Red Blood Count 4.97 X10*6/uL (4.60-5.80); Red Cell Distribution Width 14.6 % (11.0-16.0); White Blood Count 20.4 X10*3/uL (4.8-10.8)
[2020-11-09 06:05] LABS: Glucose, Whole Blood 149 mg/dL (60-115)
[2020-11-09 06:07] LABS: Alanine Aminotransferase 329 U/L (0-40); Albumin Level 2.6 g/dL (3.5-5.0); Alkaline Phosphatase 62 U/L (39-117); Anion Gap 14 (12-20); Aspartate Amino Transferase 298 U/L (5-37); Bilirubin Total 1.2 mg/dL (0.0-1.0); Blood Urea Nitrogen 59 mg/dL (9-16); Calcium 7.8 mg/dL (8.4-10.2); Carbon Dioxide 41 mmol/L (22-29); Chloride 96 mmol/L (96-108); Estimated Glomerular Filt Rate 33; Glucose Random 180 mg/dL (60-115); Phosphorus 3.9 mg/dL (2.7-4.5); Potassium 4.4 mmol/L (3.3-5.1); Sodium 147 mmol/L (135-145)
[2020-11-09] MEDS: Chlorhexidine Gluc Oral Rinse 15 ML MOUTHWASH BUCCAL ×3 (07:46→20:39)
[2020-11-09] MEDS: Sodium Zirconium Cyclosilicate 10 GM POWD.PACK PO ×3 (07:46→22:02)
[2020-11-09] MEDS: 0.9 % Sodium Chloride Flush 3 ML SYRINGE IVFLUSH ×2 (07:46→15:03)
[2020-11-09 08:07] LABS: Glucose, Whole Blood 175 mg/dL (60-115)
[2020-11-09 11:00] LABS: Glucose, Whole Blood 169 mg/dL (60-115)
[2020-11-09 11:08] LABS: ABG HCO3 44 mmol/L (22-26); ABG pCO2 65 mmHg (32-45); ABG pCO2 TC 65 mmHg (32-45); ABG pH 7.43 (7.35-7.45); ABG pH TC 7.43 (7.35-7.45); ABG pO2 41 mmHg (83-108); ABG pO2 TC 40 (83-108)
--- NOTE | 2020-11-09 11:40 | PM.CCPN ---
Subjective Subjective Date of Service: 11/09/20 Interval History: Mr. Sal Blanton was transferred to the ICU on Nov 01 with acute hypoxemic respiratory failure secondary to COVID-19 pneumonia. The patient is a 79-year-old gentleman with underlying history of obesity, hypertension, hyperlipidemia, diabetes mellitus, and CKD.? [place] [facility] [place] with progressive dyspnea, cough, nausea, and diarrhea.? Sat was 88% on RA.? BUN/creat 54/2.2, DDimer 699, Ferritin 878, PCT 5.3.? COVID positive.? Perfusion scan showed no defects.? Admitted to Medicine with Dx COVID pneumonia and treated with dexamethasone and remdesivir.? I will estimate symptom onset date as approximately October 27. Hospital course marked by increasing supplemental oxygen requirements, including 100% HFNC.? Has been afebrile throughout.? On 11/01/2020 required transferred to intensive care unit for NIV.? Was holding his own on CPAP.? Was given tocilizumab on 11/02/2020.? On Nov 04, echo showed normal LV size, thickness, and systolic function, normal RV size and function, mild , normal IVC, with normal inspiratory collapse. Over this past Sunday night (Nov 06), the patient developed increasing respiratory distress and hypoxemia.? He required tracheal intubation early the morning of Nov 07.? Screening troponin was 38, thought adequate to r/o PE as the cause.? FiO2 since then has been 100%.? Sat?s continued to deteriorate from 90% yest morning, into the 60?s, confirmed by ABG.? The Patient has been too unstable to go for CT scan.? Chest x-ray Nov 07 showed no subcutaneous air, mediastinal emphysema, or pneumothorax. On exam today, the propofol drip was down to 30ug, fentanyl down to 100ug.? Also on insulin at 3 units, and Levophed at 0.25 mcg.? The bicarb drip is off. ?He remains unresponsive, altho grimaces to vigorous facial stimulation.? Occasional cough.? HR 100, probably Afib, BP 134/53.? On PC ventilation, f26, 16/14, 100%, respiratory rate is 26, Vt 450 cc, Ve 11.2 L, PIP 30, ETCO2 29, Unable to obtain a Sat tracing.? ABG (done by the RT with my assistance, with difficulty) showed 7.43/65/41/+16, w SaO2 60%.? CVBG earlier this morning showed 7.50/66/+23 (while the Bicarb drip was still on).? He continues afebrile.? Pupils equal round, 1-2 mm. No jugular venous distention at 30 degrees.? Chest clear to auscultation with coarse breath sounds.? Normal expiratory phase.? Heart tones very soft.? I heard no murmurs or gallops.? Abdomen is obese, benign.? He has trivial peripheral edema. LABORATORY DATA:? As below.? Notably, white count this morning is down further, hemoglobin down further, sodium up to 147. BUN/creatinine are down to 59/1.9, bicarb was up to 41 on the bicarb drip (since d/c?d), potassium down to 4.4 w LoKelma, glucose down to 180 on the insulin drip, phosphorus down to 3.9. Biomarkers:? DDimer down to 472, ferritin up to 2479, procalcitonin 1.3. ?BNP yesterday was 189. Microbiology:? Blood cultures from 11/07 are negative so far.? Sputum Gram stain from yesterday shows 4+ polys, 2+ Gram-positive cocci, 1+ yeast; cultures growing 1+ Gram-negative rods. IMPRESSION: 1. 79-year-old gentleman with underlying obesity, hypertension, diabetes mellitus, and CKD 2. COVID-19 pneumonia. 3. ARDS 4. Acute severe hypoxemic respiratory failure secondary to above. ?(PE ruled out by trop and BNP.) ?Failed steroids and remdesivir and tocilizumab. ?Requiring mechanical ventilation.? Driving pressure is relatively low.? Decadron was changed to Solumedrol 80mg bid. ?Despite all the above, SaO2 continues to drop, down this morning to 60%.? When it reaches the range of low 50s, he?ll have a bradycardic arrest. 5. Now with severe hypercarbic respiratory failure.? This is end-stage ARDS. 6. Progressive szhap-mq-skrksea kidney injury.? Indices improved from yesterday, possibly from the IV fluids, possibly from the bicarbonate. 7. Viral septic shock.? Lactate 4.2. 8. ID:? Has been afebrile.? CXR shows no discreet infiltrate. ?WBC up after intubation, but coming down since then -- ? acute phase reactant. ?Blood cult from 10/29 and 11/07 are negative.? Sputum gram stain and culture unrevealing.? PCT is unremarkable.? All in all, no evidence of bacterial infection. 9. Hyperglycemia:? On insulin drip. 10. Hypernatremia.? We?re giving him free water.? We?ll start D5W tomorrow if nec. 11. Hyperkalemia.? Came down with bicarb, insulin, and LoKelma. I spoke to the patient's HCP Lisa Chambers ([phone]), yesterday at length about his condition.? She definitely got the message that he?s not going to survive and that there was nothing we could do to change that outcome.? Last night, the extended family did Face Time w the iPad.? 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 She got the message and told me that she would speak w the family and get back to me. This afternoon, the patient?s blood daughter Jessica came in to the hospital and I spoke at length with her.? Then we teleconferenced with Lisa.? From what Lisa said, it appears that she (Lisa) was standing in as healthcare proxy for Jessica because Jessica was out of town.? Now that Jessica is here, Lisa wants her to be the one to go in and see the patient.? It also appears that Lisa wants Jessica to make the decisions from now on, although I have not ascertained that yet with 100% certainty. Furthermore, from what Jessica told me, it appears that her inclination, at least initially, is to not do anything to facilitate comfort measure status, rather to let the patient pass on his own while on full support.? Later, it appeared to me from what Jessica said that maybe she was having second thoughts.? Regardless, Jessica wants to go in now to see her father, and she is of the clear understanding that this will be the family's final visit, regardless of any change in his code status or when he ultimately passes. ADDENDUM: Jessica went in to visit with her father. After she came out, she told me that all members of the family had spoken and no one was comfortable with withdrawing support. Their opinion was to let him on the current level of support. Critical Care Time (including full chart review on hospital course summary): 120+ min Critical Care Time (minutes): 120 Physical Exam Vital Signs: Vital Signs: Last Vital Signs Temp 98.4 F 11/09/20 11:00 Pulse 105 H 11/09/20 11:00 Resp 27 H 11/09/20 11:00 BP 98/45 L 11/09/20 10:00 Pulse Ox 66 L 11/09/20 11:00 Body Mass Index 38.9 Objective Data Labs CBC & Chem 7: 11/10/20 05:15 11/10/20 05:15 Labs: Laboratory Results - last 24 hr 11/08/20 11/08/20 11/08/20 11:37 11:50 13:59 WBC RBC Hgb Hct MCV MCH MCHC RDW Plt Count MPV Absolute Nucleated RBC Nucleated RBC % (auto) D-Dimer O2 Saturation 67.0 ABG pH at Pt Temp 7.31 L ABG pH (Temp Correct) 7.31 L ABG pCO2 at Pt Temp 70 H* ABG pCO2 (Temp Corrct 69 H* ABG pO2 at Pt Temp 46 L* ABG pO2 (Temp Correct 46 L* ABG HCO3 35 H ABG Base Excess (Actual) 6.5 VBG pH VBG pCO2 VBG pO2 VBG HCO3 VBG O2 Saturation VBG Base Excess Sodium Potassium Chloride Carbon Dioxide Anion Gap BUN Creatinine Estim Creat Clear Calc Estimated GFR POC Glucose 312 H 335 H Random Glucose Lactic Acid Calcium Phosphorus Ferritin Total Bilirubin AST ALT Alkaline Phosphatase C-Reactive Protein B-Natriuretic Peptide Total Protein Albumin Procalcitonin 11/08/20 11/08/20 11/08/20 16:12 16:42 16:42 WBC RBC Hgb Hct MCV MCH MCHC RDW Plt Count MPV Absolute Nucleated RBC Nucleated RBC % (auto) D-Dimer O2 Saturation ABG pH at Pt Temp ABG pH (Temp Correct) ABG pCO2 at Pt Temp ABG pCO2 (Temp Corrct ABG pO2 at Pt Temp ABG pO2 (Temp Correct ABG HCO3 ABG Base Excess (Actual) VBG pH VBG pCO2 VBG pO2 VBG HCO3 VBG O2 Saturation VBG Base Excess Sodium Potassium Chloride Carbon Dioxide Anion Gap BUN Creatinine Estim Creat Clear Calc Estimated GFR POC Glucose 272 H Random Glucose Lactic Acid Calcium Phosphorus Ferritin Total Bilirubin AST ALT Alkaline Phosphatase C-Reactive Protein B-Natriuretic Peptide 189 H Total Protein Albumin Procalcitonin 1.33 11/08/20 11/08/20 11/08/20 16:43 16:43 17:35 WBC RBC Hgb Hct MCV MCH MCHC RDW Plt Count MPV Absolute Nucleated RBC Nucleated RBC % (auto) D-Dimer 472 O2 Saturation ABG pH at Pt Temp ABG pH (Temp Correct) ABG pCO2 at Pt Temp ABG pCO2 (Temp Corrct ABG pO2 at Pt Temp ABG pO2 (Temp Correct ABG HCO3 ABG Base Excess (Actual) VBG pH VBG pCO2 VBG pO2 VBG HCO3 VBG O2 Saturation VBG Base Excess Sodium Potassium Chloride Carbon Dioxide Anion Gap BUN Creatinine Estim Creat Clear Calc Estimated GFR POC Glucose Random Glucose Lactic Acid 4.2 H* Calcium Phosphorus Ferritin 2479 H Total Bilirubin AST ALT Alkaline Phosphatase C-Reactive Protein 2.14 H B-Natriuretic Peptide Total Protein Albumin Procalcitonin 11/08/20 11/08/20 11/08/20 19:18 20:21 22:32 WBC RBC Hgb Hct MCV MCH MCHC RDW Plt Count MPV Absolute Nucleated RBC Nucleated RBC % (auto) D-Dimer O2 Saturation ABG pH at Pt Temp ABG pH (Temp Correct) ABG pCO2 at Pt Temp ABG pCO2 (Temp Corrct ABG pO2 at Pt Temp ABG pO2 (Temp Correct ABG HCO3 ABG Base Excess (Actual) VBG pH VBG pCO2 VBG pO2 VBG HCO3 VBG O2 Saturation VBG Base Excess Sodium Potassium Chloride Carbon Dioxide Anion Gap BUN Creatinine Estim Creat Clear Calc Estimated GFR POC Glucose 189 H 197 H 166 H Random Glucose Lactic Acid Calcium Phosphorus Ferritin Total Bilirubin AST ALT Alkaline Phosphatase C-Reactive Protein B-Natriuretic Peptide Total Protein Albumin Procalcitonin 11/08/20 11/09/20 11/09/20 23:35 02:38 05:28 WBC RBC Hgb Hct MCV MCH MCHC RDW Plt Count MPV Absolute Nucleated RBC Nucleated RBC % (auto) D-Dimer O2 Saturation ABG pH at Pt Temp ABG pH (Temp Correct) ABG pCO2 at Pt Temp ABG pCO2 (Temp Corrct ABG pO2 at Pt Temp ABG pO2 (Temp Correct ABG HCO3 ABG Base Excess (Actual) VBG pH VBG pCO2 VBG pO2 VBG HCO3 VBG O2 Saturation VBG Base Excess Sodium Potassium Chloride Carbon Dioxide Anion Gap BUN Creatinine Estim Creat Clear Calc Estimated GFR POC Glucose 165 H 161 H 149 H Random Glucose Lactic Acid Calcium Phosphorus Ferritin Total Bilirubin AST ALT Alkaline Phosphatase C-Reactive Protein B-Natriuretic Peptide Total Protein Albumin Procalcitonin 11/09/20 11/09/20 11/09/20 05:30 05:30 05:30 WBC 20.4 H RBC 4.97 Hgb 14.9 Hct 46.8 MCV 94.2 MCH 30.0 MCHC 31.8 RDW 14.6 Plt Count 145 L D MPV 12.4 Absolute Nucleated RBC 0.050 H Nucleated RBC % (auto) 0.2 D-Dimer O2 Saturation ABG pH at Pt Temp ABG pH (Temp Correct) ABG pCO2 at Pt Temp ABG pCO2 (Temp Corrct ABG pO2 at Pt Temp ABG pO2 (Temp Correct ABG HCO3 ABG Base Excess (Actual) VBG pH 7.50 H VBG pCO2 66 VBG pO2 36 VBG HCO3 51 H VBG O2 Saturation 55.0 VBG Base Excess 23.2 Sodium 147 H Potassium 4.4 Chloride 96 Carbon Dioxide 41 H* D Anion Gap 14 BUN 59 H Creatinine 1.96 H Estim Creat Clear Calc 36.0 Estimated GFR 33 POC Glucose Random Glucose 180 H D Lactic Acid Calcium 7.8 L D Phosphorus 3.9 Ferritin Total Bilirubin 1.2 H AST 298 H ALT 329 H Alkaline Phosphatase 62 C-Reactive Protein B-Natriuretic Peptide Total Protein 5.0 L Albumin 2.6 L Procalcitonin 11/09/20 11/09/20 11/09/20 07:51 10:43 11:03 WBC RBC Hgb Hct MCV MCH MCHC RDW Plt Count MPV Absolute Nucleated RBC Nucleated RBC % (auto) D-Dimer O2 Saturation 60.0 ABG pH at Pt Temp 7.43 ABG pH (Temp Correct) 7.43 ABG pCO2 at Pt Temp 65 H* ABG pCO2 (Temp Corrct 65 H* ABG pO2 at Pt Temp 41 L* ABG pO2 (Temp Correct 40 L* ABG HCO3 44 H ABG Base Excess (Actual) 16.0 VBG pH VBG pCO2 VBG pO2 VBG HCO3 VBG O2 Saturation VBG Base Excess Sodium Potassium Chloride Carbon Dioxide Anion Gap BUN Creatinine Estim Creat Clear Calc Estimated GFR POC Glucose 175 H 169 H Random Glucose Lactic Acid Calcium Phosphorus Ferritin Total Bilirubin AST ALT Alkaline Phosphatase C-Reactive Protein B-Natriuretic Peptide Total Protein Albumin Procalcitonin Microbiology Microbiology Results: Microbiology 11/08/20 17:27 Sputum - Suctioned Gram Stain - Final 11/08/20 17:27 Sputum - Suctioned Sputum Culture - Preliminary Gram negative jovani 11/07/20 16:32 Blood - Venous Blood Culture - Preliminary No growth after 24 hours. 11/07/20 16:32 Blood - Venous Blood Culture - Preliminary No growth after 24 hours. 10/29/20 16:41 Blood - Venous Blood Culture - Final No growth after 5 days. 10/29/20 16:41 Blood - Venous Blood Culture - Final No growth after 5 days. Quality Stroke Does the patient have a stroke diagnosis?: No VTE Prior VTE?: No VTE Risk Level:: Medical - moderate - high VTE Device Contraindication: Treatment Not Indicated VTE Drug Contraindication: N/A - Med Ordered Critical Care Time Critical Care Time (minutes): 120
[2020-11-09] MEDS: propofoL 1,000 MG/100 ML VIAL 19.06 MG IVCONT ×2 (12:20→12:32)
[2020-11-09 12:54] LABS: ABG Refer to POC result
--- NOTE | 2020-11-09 13:21 | PC.NURSE ---
Patient remains in precaution status for COVID positive test results and is a DNR. MD spoke to family Daughter Grace and Daughter Jessica regarding health status/poor prognosis including the option of comfort measures. At this time patient still DNR status. Daughter Jessica arrived to unit attempting to visit patient. Jessica was asked to wait in waiting room and spoke with her at length about plan of care. Erlinda Ron, G quality assurance supervisor body, made aware of situation and request to visit patient. Per upper management, Jessica approved for ONE TIME visit with an understanding this will be her last visit while patient is DNR. 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 NSG quality assurance supervisor body to facilitate and monitor visitation with required precautionary measures.
[2020-11-09 15:20] LABS: Glucose, Whole Blood 250 mg/dL (60-115)
[2020-11-09] MEDS: propofoL 1,000 MG/100 ML VIAL 25.42 MG IVCONT ×2 (15:22→21:59)
[2020-11-09 16:12] LABS: Glucose, Whole Blood 271 mg/dL (60-115)
[2020-11-09 17:13] LABS: Glucose, Whole Blood 239 mg/dL (60-115)
[2020-11-09] MEDS: Adenosine 6 MG/2 ML VIAL IVPUSH (17:49)
[2020-11-09] MEDS: dilTIAZem HCL 50 MG/10 ML VIAL 10 MG IVPUSH (18:14)
[2020-11-09] MEDS: dilTIAZem HCL 125 MG in 0.9 % Sodium Chloride 100 ML 10 MG IVCONT (18:14)
[2020-11-09 18:15] LABS: Glucose, Whole Blood 242 mg/dL (60-115)
--- NOTE | 2020-11-09 18:40 | PC.NURSE ---
Patient in junctional tachycardia on tele with HR in the 140s to 150s. MD notified. 6 mg of Adenosine IVP ordered and administered. After administration of Adenosine, patient went into slow a.flutter then asystole for 4 seconds and immediately back into the 150s for a heart rate. MD notified. Administered ordered 10 mg Cardizem IVP and Cardizem drip started at 10mg/hr per MD. After Cardizem patient remains in junctional tachycardia with HR in the one teens, aware.
[2020-11-09 19:14] LABS: Glucose, Whole Blood 219 mg/dL (60-115)
[2020-11-09] MEDS: Latanoprost 0.005 % Ophth Sol 2.5 ML DROPS 1 DROP EYE-BOTH (20:40)
[2020-11-09] MEDS: Insulin Regular/NS 100 UNIT/100 ML PLAST..BAG 10 UNIT IVCONT (20:40)
[2020-11-09] MEDS: Insulin Glargine,Hum.rec.anlog 100 UNIT/ML 10 ML VIAL 10 UNIT SUBCUT (20:40)
[2020-11-09 20:55] LABS: Glucose, Whole Blood 166 mg/dL (60-115)
[2020-11-09 23:11] LABS: Glucose, Whole Blood 178 mg/dL (60-115)
[2020-11-10] VITALS (30 sets, daily range): BP systolic 88–131; BP diastolic 26–59; PULSE 63–91; RESP 24–30; TEMP 36.5–36.9; O2SAT 56–76; BMI 42.1
[2020-11-10] MEDS: 0.9 % Sodium Chloride Flush 3 ML SYRINGE IVFLUSH ×4 (00:45→23:13)
[2020-11-10] MEDS: Heparin Sodium,Porcine 5,000 UNIT/ML VIAL 5000 UNIT SUBCUT ×3 (00:45→23:13)
[2020-11-10] MEDS: propofoL 1,000 MG/100 ML VIAL 25.42 MG IVCONT (00:46)
[2020-11-10] MEDS: fentaNYL citrate/NS 1,000 MCG/100 ML PLAST..BAG 15 MCG IVCONT ×4 (00:46→20:48)
[2020-11-10 01:07] LABS: Glucose, Whole Blood 193 mg/dL (60-115)
[2020-11-10] MEDS: Piperacillin Sodium/Tazobactam 3.375 GM in 0.9 % Sodium Chloride 50 ML IV ×4 (02:22→20:47)
[2020-11-10 03:06] LABS: Glucose, Whole Blood 167 mg/dL (60-115)
[2020-11-10] MEDS: methylPREDNISolone Sod Succ 125 MG/2 ML VIAL 80 MG IVPUSH ×2 (04:48→17:08)
[2020-11-10] MEDS: dilTIAZem HCL 125 MG in 0.9 % Sodium Chloride 100 ML 10 MG IVCONT (04:48)
[2020-11-10] MEDS: propofoL 1,000 MG/100 ML VIAL 28.59 MG IVCONT ×6 (04:49→22:20)
[2020-11-10 05:10] LABS: Glucose, Whole Blood 164 mg/dL (60-115)
[2020-11-10 05:22] LABS: VBG Base Excess 17.2 mmol/L; VBG HCO3 47 mmol/L (22-26); VBG pCO2 82 mmHg; VBG pH 7.37 (7.32-7.43); VBG pO2 30 mmHg
[2020-11-10 05:41] LABS: Basophils Absolute Auto 0.1 X10*3/uL (0.0-0.2); Basophils Percent Auto 0.2 % (0-2); Hematocrit 46.2 % (42-52); Hemoglobin 14.1 g/dl (14.0-18.0); Imm Gran Abs Auto 0.84 X10*3/uL (0.00-0.03); Imm Gran Pct Auto 2.7 % (0.0-0.4); Lymphocytes Absolute Auto 0.4 X10*3/uL (1.2-4.9); Lymphocytes Percent Auto 1.2 % (20-40); MANUAL DIFF FLAG SCAN; Mean Corpuscular HGB Conc 30.5 g/dl (31.0-36.0); Mean Corpuscular Hemoglobin 29.7 pg (27.0-33.0); Mean Corpuscular Volume 97.3 fL (80-98); Mean Platelet Volume 12.5 fL (9.4-12.4); Monocytes Absolute Auto 0.6 X10*3/uL (0.1-1.2); Monocytes Percent Auto 1.8 % (2-11); Neutrophils Absolute Auto 29.7 X10*3/uL (2.0-8.3); Neutrophils Percent Auto 94.1 % (45-73); Platelet Count 148 X10*3/uL (160-400); Red Blood Count 4.75 X10*6/uL (4.60-5.80); Red Cell Distribution Width 14.6 % (11.0-16.0); SCAN SMEAR FLAG 1
[2020-11-10 06:06] LABS: NRBC Pct Auto 1.1 /100WBC (0.0-0.2)
[2020-11-10 06:09] LABS: SLIDE REVIEW VERIFIED; White Blood Count 31.6 X10*3/uL (4.8-10.8)
[2020-11-10 06:16] LABS: Alanine Aminotransferase 261 U/L (0-40); Albumin Level 2.7 g/dL (3.5-5.0); Alkaline Phosphatase 71 U/L (39-117); Anion Gap 16 (12-20); Aspartate Amino Transferase 218 U/L (5-37); Bilirubin Total 1.4 mg/dL (0.0-1.0); Blood Urea Nitrogen 65 mg/dL (9-16); C Reactive Protein 1.42 mg/dL (< or = 0.50); Calcium 7.7 mg/dL (8.4-10.2); Carbon Dioxide 37 mmol/L (22-29); Chloride 96 mmol/L (96-108); Creatinine Clr Calc Pharmacy 37.2; Estimated Glomerular Filt Rate 33; Glucose Random 182 mg/dL (60-115); Phosphorus 4.9 mg/dL (2.7-4.5); Potassium 4.1 mmol/L (3.3-5.1); Sodium 145 mmol/L (135-145)
[2020-11-10 06:40] LABS: Venous Blood Gas Refer to POC result
[2020-11-10 07:27] LABS: Glucose, Whole Blood 172 mg/dL (60-115)
[2020-11-10] MEDS: Chlorhexidine Gluc Oral Rinse 15 ML MOUTHWASH BUCCAL ×3 (07:48→20:47)
[2020-11-10 09:18] LABS: Glucose, Whole Blood 148 mg/dL (60-115)
--- NOTE | 2020-11-10 10:10 | MHC.CLN ---
F/U PT RECEIVING TF NEPRO AT MAX GOAL RATE 20ML/HR WITH 300CC FREE WATER Q 6 HRS PROVIDES 864KCALS (1619KCALS WITH SEDATION; 25KCALS/KG), 39G PROTEIN, 1550CC TOTAL WATER FROM FORMULA AND FLUSHES (24ML/KG) MONITOR TOLERANCE, RESIDUALS AND LYTES
[2020-11-10 11:10] LABS: Glucose, Whole Blood 156 mg/dL (60-115)
[2020-11-10] MEDS: Insulin Regular/NS 100 UNIT/100 ML PLAST..BAG IVCONT (11:33)
--- NOTE | 2020-11-10 11:56 | P.PNCC_ITS ---
Subjective Subjective Date of Service: 11/10/20 Interval History: Mr. Sal Blanton was transferred to the ICU on Nov 01 with acute hypoxemic respiratory failure secondary to COVID-19 pneumonia. The patient is a 79-year-old gentleman with underlying history of obesity, hypertension, hyperlipidemia, diabetes mellitus, and CKD.? He presented [place] [facility] [place] 10/29/2020 with progressive dyspnea, cough, nausea, and diarrhea.? Sat was 88% on RA.? BUN/creat 54/2.2, DDimer 699, Ferritin 878, PCT 5.3.? COVID positive.? Perfusion scan showed no defects.? Admitted to Medicine with Dx COVID pneumonia and treated with dexamethasone and remdesivir.? I will estimate symptom onset date as approximately October 27. Hospital course marked by increasing supplemental oxygen requirements, including 100% HFNC.? Has been afebrile throughout.? On 11/01/2020 required transferred to intensive care unit for NIV.? Was holding his own on CPAP.? Was given tocilizumab on 11/02/2020.? On Nov 04, echo showed normal LV size, thickness, and systolic function, normal RV size and function, mild , normal IVC, with normal inspiratory collapse. Over this past Sunday night (Nov 06), the patient developed increasing respiratory distress and hypoxemia.? He required tracheal intubation early the morning of Nov 07.? Screening troponin was 38, thought adequate to r/o PE as the cause.? FiO2 since then has been 100%.? Sat?s continued to deteriorate progressively, down as low as the 60?s, confirmed by ABGs.? The Patient has been too unstable to go for CT scan.? Repeat CXRs have shown no subcutaneous air, mediastinal emphysema, or pneumothorax. We did turn the level of his sedation down yesterday and he did become more agitated, so the propofol and fentanyl were turned back up.? Yesterday went into rapid Aflutter (proven by adenosine).? Started on diltiazem with good rate control. On exam today, the propofol drip is at 45ug, fentanyl at 150ug.? Also on insulin at 5 units, Levophed at 0.25 mcg and diltiazem at 10mg/hr.? He?s well sedated, altho grimaces to vigorous facial stimulation.? HR is 67, looks like SR. ?BP 100/37.? On PC ventilation, f26, 16/14, 100%, respiratory rate is 26, Vt 400 cc, Ve 10 L, PIP 30, ETCO2 41, good Sat tracing showing 66%.? CVBG this morning kenan sun 7.37/82/+17 (off the bicarb drip).? He continues afebrile.? Chest clear w normal expiratory phase.? Trivial peripheral edema, if any. LABORATORY DATA:? As below.? Notably, white count this morning is bumped to 31, sodium down to 145. BUN/creatinine up slightly to 65/1.98, bicarb down to 37 after the bicarb drip was d/c?d, potassium down to 4.1 on the LoKelma and insulin, glucose 182 on the insulin drip, phosphorus up to 4.9. Biomarkers:? CRP down to 1.4. Microbiology:? Blood cultures from 11/07 are negative so far.? Sputum Gram stain from yesterday shows 4+ polys, 2+ Gram-positive cocci, 1+ yeast; cultures growing mixed upper resp genny. IMAGING:? Chest x-ray yesterday showed worsened diffuse bilateral interstitial infiltrates.? He does have fluid in the fissure.? Cannot r/o pulmon edema (even though BNP was unimpressive). IMPRESSION: 1. 79-year-old gentleman with underlying obesity, hypertension, diabetes mellitus, and CKD. 2. COVID-19 pneumonia. 3. ARDS. 4. Acute severe hypoxemic respiratory failure secondary to above. ?(PE ruled out by trop and BNP.) ?Failed steroids and remdesivir and tocilizumab. ?Requiring mechanical ventilation.? Driving pressure is relatively low.? Decadron was changed to Solumedrol 80mg bid. ?Despite all the above, SO2 continues to drop, now persistently down in the 60% range.? When it reaches the range of low 50s, he?ll have a bradycardic arrest.? Given lack of anything better to do, we will trial diuresis. 5. Now with severe hypercarbic respiratory failure.? This is end-stage ARDS. 6. Progressive [id number]-mjcyqhm kidney injury.? Indices holding in the current range.? I would not be surprised if his indices worsen with attempted diuresis. 7. Viral septic shock. 8. ID:? Has been afebrile. ?CXR shows no discreet infiltrate. ?WBC up today, ? 2? steroids. ?Remains afebrile.? Blood cult from 10/29 and 11/07 are negative.? Sputum gram stain and culture unrevealing.? PCT is unremarkable.? All in all, evidence is not suggestive of bacterial infection, but, rather, classic COVID. 9. Hyperglycemia:? On insulin drip. 10. Hypernatremia.? We?re giving him free water. 11. Hyperkalemia.? Came down with LoKelma and insulin. Critical Care Time: 50 min Critical Care Time (minutes): 50 Physical Exam Vital Signs: Vital Signs: Last Vital Signs Temp 98.1 F 11/10/20 11:00 Pulse 69 11/10/20 11:00 Resp 26 H 11/10/20 11:00 BP 96/26 L 11/10/20 11:00 Pulse Ox 62 L 11/10/20 11:00 Body Mass Index 42.1 Objective Data Labs CBC & Chem 7: 11/10/20 05:15 11/10/20 05:15 Labs: Laboratory Results - last 24 hr 11/09/20 11/09/20 11/09/20 15:09 16:07 17:07 WBC RBC Hgb Hct MCV MCH MCHC RDW Plt Count MPV Immature Gran % (Auto) Neut % (Auto) Lymph % (Auto) [place] % (Auto) Eos % (Auto) Baso % (Auto) Lymph # (Auto) [place] # (Auto) Eos # (Auto) Baso # (Auto) Abs Immat Gran (auto) Absolute Neuts (auto) Absolute Nucleated RBC Nucleated RBC % (auto) Smear Tech's Comments VBG pH VBG pCO2 VBG pO2 VBG HCO3 VBG O2 Saturation VBG Base Excess Sodium Potassium Chloride Carbon Dioxide Anion Gap BUN Creatinine Estim Creat Clear Calc Estimated GFR POC Glucose 250 H 271 H 239 H Random Glucose Calcium Phosphorus Total Bilirubin AST ALT Alkaline Phosphatase C-Reactive Protein Total Protein Albumin 11/09/20 11/09/20 11/09/20 17:55 19:09 20:51 WBC RBC Hgb Hct MCV MCH MCHC RDW Plt Count MPV Immature Gran % (Auto) Neut % (Auto) Lymph % (Auto) [place] % (Auto) Eos % (Auto) Baso % (Auto) Lymph # (Auto) [place] # (Auto) Eos # (Auto) Baso # (Auto) Abs Immat Gran (auto) Absolute Neuts (auto) Absolute Nucleated RBC Nucleated RBC % (auto) Smear Tech's Comments VBG pH VBG pCO2 VBG pO2 VBG HCO3 VBG O2 Saturation VBG Base Excess Sodium Potassium Chloride Carbon Dioxide Anion Gap BUN Creatinine Estim Creat Clear Calc Estimated GFR POC Glucose 242 H 219 H 166 H Random Glucose Calcium Phosphorus Total Bilirubin AST ALT Alkaline Phosphatase C-Reactive Protein Total Protein Albumin 11/09/20 11/10/20 11/10/20 23:07 00:49 02:57 WBC RBC Hgb Hct MCV MCH MCHC RDW Plt Count MPV Immature Gran % (Auto) Neut % (Auto) Lymph % (Auto) [place] % (Auto) Eos % (Auto) Baso % (Auto) Lymph # (Auto) [place] # (Auto) Eos # (Auto) Baso # (Auto) Abs Immat Gran (auto) Absolute Neuts (auto) Absolute Nucleated RBC Nucleated RBC % (auto) Smear Tech's Comments VBG pH VBG pCO2 VBG pO2 VBG HCO3 VBG O2 Saturation VBG Base Excess Sodium Potassium Chloride Carbon Dioxide Anion Gap BUN Creatinine Estim Creat Clear Calc Estimated GFR POC Glucose 178 H 193 H 167 H Random Glucose Calcium Phosphorus Total Bilirubin AST ALT Alkaline Phosphatase C-Reactive Protein Total Protein Albumin 11/10/20 11/10/20 11/10/20 04:57 05:15 05:15 WBC 31.6 H* RBC 4.75 Hgb 14.1 Hct 46.2 MCV 97.3 MCH 29.7 MCHC 30.5 L RDW 14.6 Plt Count 148 L MPV 12.5 H Immature Gran % (Auto) 2.7 H Neut % (Auto) 94.1 H Lymph % (Auto) 1.2 L [place] % (Auto) 1.8 L Eos % (Auto) 0.0 Baso % (Auto) 0.2 Lymph # (Auto) 0.4 L [place] # (Auto) 0.6 Eos # (Auto) 0.0 Baso # (Auto) 0.1 Abs Immat Gran (auto) 0.84 H Absolute Neuts (auto) 29.7 H Absolute Nucleated RBC 0.360 H Nucleated RBC % (auto) 1.1 H Smear Tech's Comments VERIFIED VBG pH VBG pCO2 VBG pO2 VBG HCO3 VBG O2 Saturation VBG Base Excess Sodium 145 Potassium 4.1 Chloride 96 Carbon Dioxide 37 H Anion Gap 16 BUN 65 H Creatinine 1.98 H Estim Creat Clear Calc 37.2 Estimated GFR 33 POC Glucose 164 H Random Glucose 182 H Calcium 7.7 L Phosphorus 4.9 H Total Bilirubin 1.4 H AST 218 H ALT 261 H Alkaline Phosphatase 71 C-Reactive Protein 1.42 H Total Protein 5.0 L Albumin 2.7 L 11/10/20 11/10/20 11/10/20 05:16 07:18 09:12 WBC RBC Hgb Hct MCV MCH MCHC RDW Plt Count MPV Immature Gran % (Auto) Neut % (Auto) Lymph % (Auto) [place] % (Auto) Eos % (Auto) Baso % (Auto) Lymph # (Auto) [place] # (Auto) Eos # (Auto) Baso # (Auto) Abs Immat Gran (auto) Absolute Neuts (auto) Absolute Nucleated RBC Nucleated RBC % (auto) Smear Tech's Comments VBG pH 7.37 VBG pCO2 82 VBG pO2 30 VBG HCO3 47 H VBG O2 Saturation 32.0 VBG Base Excess 17.2 Sodium Potassium Chloride Carbon Dioxide Anion Gap BUN Creatinine Estim Creat Clear Calc Estimated GFR POC Glucose 172 H 148 H Random Glucose Calcium Phosphorus Total Bilirubin AST ALT Alkaline Phosphatase C-Reactive Protein Total Protein Albumin 11/10/20 10:54 WBC RBC Hgb Hct MCV MCH MCHC RDW Plt Count MPV Immature Gran % (Auto) Neut % (Auto) Lymph % (Auto) [place] % (Auto) Eos % (Auto) Baso % (Auto) Lymph # (Auto) [place] # (Auto) Eos # (Auto) Baso # (Auto) Abs Immat Gran (auto) Absolute Neuts (auto) Absolute Nucleated RBC Nucleated RBC % (auto) Smear Tech's Comments VBG pH VBG pCO2 VBG pO2 VBG HCO3 VBG O2 Saturation VBG Base Excess Sodium Potassium Chloride Carbon Dioxide Anion Gap BUN Creatinine Estim Creat Clear Calc Estimated GFR POC Glucose 156 H Random Glucose Calcium Phosphorus Total Bilirubin AST ALT Alkaline Phosphatase C-Reactive Protein Total Protein Albumin Microbiology Microbiology Results: Microbiology 11/08/20 17:27 Sputum - Suctioned Gram Stain - Final 11/08/20 17:27 Sputum - Suctioned Sputum Culture - Final Enterobacter cloacae complex 11/07/20 16:32 Blood - Venous Blood Culture - Preliminary No growth after 48 hours. 11/07/20 16:32 Blood - Venous Blood Culture - Preliminary No growth after 48 hours. 10/29/20 16:41 Blood - Venous Blood Culture - Final No growth after 5 days. 10/29/20 16:41 Blood - Venous Blood Culture - Final No growth after 5 days. Quality Stroke Does the patient have a stroke diagnosis?: No VTE Prior VTE?: No VTE Risk Level:: Medical - moderate - high VTE Device Contraindication: Treatment Not Indicated VTE Drug Contraindication: N/A - Med Ordered Critical Care Time Critical Care Time (minutes): 60
[2020-11-10 12:58] LABS: Glucose, Whole Blood 183 mg/dL (60-115)
[2020-11-10] MEDS: Furosemide 40 MG/4 ML VIAL IVPUSH (13:47)
--- NOTE | 2020-11-10 14:18 | MHC.CM.PN ---
Pt is expected to pass per discussion in rounds: Family has been updated and does not wish to withdrawal support but will allow pt to pass without any intervention. CM will follow for any changes in status
[2020-11-10] MEDS: Furosemide 200 MG in 0.9 % Sodium Chloride 80 ML IVCONT (14:46)
[2020-11-10 15:00] LABS: Glucose, Whole Blood 203 mg/dL (60-115)
[2020-11-10 17:15] LABS: Glucose, Whole Blood 211 mg/dL (60-115)
--- NOTE | 2020-11-10 18:15 | PC.NURSE ---
FAMILY UPDATED MULTIPLE TIMES THROUGHOUT SHIFT AND FACETIME WITH PT. MODESTA (DAUGHTER [phone]) WOULD LIKE TO BE CALLED FIRST WHEN PT PASSES.
[2020-11-10 19:11] LABS: Glucose, Whole Blood 185 mg/dL (60-115)
[2020-11-10] MEDS: Insulin Glargine,Hum.rec.anlog 100 UNIT/ML 10 ML VIAL 20 UNIT SUBCUT (20:47)
[2020-11-10] MEDS: Latanoprost 0.005 % Ophth Sol 2.5 ML DROPS 1 DROP EYE-BOTH (20:49)
[2020-11-10 21:10] LABS: Glucose, Whole Blood 151 mg/dL (60-115)
[2020-11-10] MEDS: dilTIAZem HCL 125 MG in 0.9 % Sodium Chloride 100 ML IVCONT (22:21)
[2020-11-10 23:39] LABS: Glucose, Whole Blood 145 mg/dL (60-115)
[2020-11-11] VITALS (33 sets, daily range): BP systolic 50–126; BP diastolic 23–47; PULSE 59–78; RESP 26–35; TEMP 34.2–36.5; O2SAT 2–78; BMI 43.0
[2020-11-11] MEDS: propofoL 1,000 MG/100 ML VIAL 28.59 MG IVCONT ×4 (01:15→12:05)
[2020-11-11] MEDS: Piperacillin Sodium/Tazobactam 3.375 GM in 0.9 % Sodium Chloride 50 ML IV ×2 (02:15→08:37)
[2020-11-11] MEDS: fentaNYL citrate/NS 1,000 MCG/100 ML PLAST..BAG 15 MCG IVCONT ×3 (02:45→10:34)
[2020-11-11] MEDS: Insulin Regular/NS 100 UNIT/100 ML PLAST..BAG IVCONT (02:50)
[2020-11-11] MEDS: methylPREDNISolone Sod Succ 125 MG/2 ML VIAL 80 MG IVPUSH ×2 (05:05→16:25)
[2020-11-11 05:52] LABS: Glucose, Whole Blood 126 mg/dL (60-115)
[2020-11-11 05:52] LABS: Glucose, Whole Blood 171 mg/dL (60-115)
[2020-11-11 05:52] LABS: VBG HCO3 34 mmol/L (22-26); VBG pCO2 107 mmHg; VBG pH 7.11 (7.32-7.43); VBG pO2 44 mmHg
[2020-11-11 05:52] LABS: Glucose, Whole Blood 77 mg/dL (60-115)
[2020-11-11 06:09] LABS: Ferritin 1333 ng/mL (20-250)
[2020-11-11 06:10] LABS: Hematocrit 51.3 % (42-52); Mean Corpuscular HGB Conc 29.2 g/dl (31.0-36.0); Mean Corpuscular Hemoglobin 30.4 pg (27.0-33.0); Mean Corpuscular Volume 104.1 fL (80-98); Mean Platelet Volume 12.9 fL (9.4-12.4); Platelet Count 156 X10*3/uL (160-400); Red Blood Count 4.93 X10*6/uL (4.60-5.80); Red Cell Distribution Width 14.6 % (11.0-16.0)
[2020-11-11 06:29] LABS: B Type Natriuretic Peptide 288 pg/mL (<100)
[2020-11-11 06:33] LABS: NRBC Pct Auto 3.6 /100WBC (0.0-0.2)
[2020-11-11 06:39] LABS: Venous Blood Gas Refer to POC result
[2020-11-11 06:46] LABS: Lactic Acid 6.7 mmol/L (0.5-2.0)
[2020-11-11 06:52] LABS: Anion Gap 23 (12-20); Blood Urea Nitrogen 89 mg/dL (9-16); Carbon Dioxide 30 mmol/L (22-29); Chloride 97 mmol/L (96-108); Creatinine Clr Calc Pharmacy 25.2; Estimated Glomerular Filt Rate 21; Glucose Random 124 mg/dL (60-115); Potassium 4.8 mmol/L (3.3-5.1); Sodium 145 mmol/L (135-145)
[2020-11-11 06:52] LABS: Glucose, Whole Blood 49 mg/dL (60-115)
[2020-11-11 06:53] LABS: Calcium 7.6 mg/dL (8.4-10.2); Phosphorus 9.4 mg/dL (2.7-4.5)
[2020-11-11 07:06] LABS: D Dimer 1360 NG/ML
[2020-11-11 07:59] LABS: White Blood Count 40.1 X10*3/uL (4.8-10.8)
[2020-11-11 08:10] LABS: Glucose, Whole Blood 123 mg/dL (60-115)
[2020-11-11 08:15] LABS: Reflex Lactate? Lactic Acid Added
--- NOTE | 2020-11-11 08:26 | PC.NURSE ---
Patient with increasing residual from tube feeding. Tube feeding shut off at 0320. Patient with FSBS of 49 at 0648, hypoglycemic protocol followed. PA aware of low oxygen saturation throughout shift, patient on 100% oxygen support.
[2020-11-11] MEDS: Chlorhexidine Gluc Oral Rinse 15 ML MOUTHWASH BUCCAL ×3 (08:37→20:34)
[2020-11-11] MEDS: 0.9 % Sodium Chloride Flush 3 ML SYRINGE IVFLUSH ×2 (08:38→22:51)
[2020-11-11 09:39] LABS: Cancel Lactic Acid Canceled
[2020-11-11 10:02] LABS: Glucose, Whole Blood 140 mg/dL (60-115)
--- NOTE | 2020-11-11 11:40 | PC.NURSE ---
Addendum entered by Baltazar Oviedo RN 11/11/20 13:51: 1200 Propofol down to 30mcg/kg/min Fentanyl down to 50mcg/hr, cadizem off, lasix off, insulin d/c'd. Original Note: Pt BP 104/30, md aware, titrated levo to 0.5 from 0.32 mcg/kg/min and got MAP to 61. MD aware and states to not increase care at this time and to leave levo at 0.32mcg/kg/min, BP 94/29. Has only put out 5ml of urine this shift, lasix drip increased to 10mg/hr per MD. Pt on 150mcg/hr fentanyl and propofol 45mcg/kg/min RR 26, neurologically no cough/gag pupills 3mm PERRLA, flaccid. Vent settings ACPC rate 26, FiO2 100% Pi 16, PEEP 14 vT 350 Ve 8-9L/min ETCO2 34 Sao2 72%, VBG today pH 7.11 CO2 107 BIcarb trending down to 34 Cardizem dose lowered to 2.5mg/hr from 5mg/hr as heart rate 62bpm NSR, MD wants to keep to prevent going into arrhythmia. Will titrate propofol down to 30mcg/kg/min per MD and fentanyl decrease to 50mcg/hr.
[2020-11-11] MEDS: Heparin Sodium,Porcine 5,000 UNIT/ML VIAL 5000 UNIT SUBCUT ×2 (12:05→20:50)
--- NOTE | 2020-11-11 12:37 | P.PNCC_ITS ---
Subjective Subjective Date of Service: 11/11/20 Interval History: Mr. Sal Blanton was transferred to the ICU on Nov 01 with acute hypoxemic respiratory failure secondary to COVID-19 pneumonia. The patient is a 79-year-old gentleman with underlying history of obesity, hypertension, hyperlipidemia, diabetes mellitus, and CKD.? He presented to [facility] on 10/29/2020 with progressive dyspnea, cough, nausea, and diarrhea.? Sat was 88% on RA.? BUN/creat 54/2.2, DDimer 699, Ferritin 878, PCT 5.3.? COVID positive.? Perfusion scan showed no defects.? Admitted to Medicine with Dx COVID pneumonia and treated with dexamethasone and remdesivir.? I will estimate symptom onset date as approximately October 27. Hospital course marked by increasing supplemental oxygen requirements, including 100% HFNC.? Has been afebrile throughout.? On 11/01/2020 required transferred to intensive care unit for NIV.? Was holding his own on CPAP.? Was given tocilizumab on 11/02/2020.? On Nov 04, echo showed normal LV size, thickness, and systolic function, normal RV size and function, mild , normal IVC, with normal inspiratory collapse. On Nov 06 developed increasing respiratory distress and hypoxemia.? He required tracheal intubation early the next morning.? Screening troponin was 38, thought adequate to r/o PE as the cause.? The patient developed the metabolic acidosis (probably renal in origin) and leukocytosis that day.? Empiric Zosyn was started (which I missed noting in my prior notes this week). ?FiO2 since then has been 100%.? Sat?s continued to deteriorate progressively, down as low as the 60?s, confirmed by ABGs.? The Patient has been too unstable to go for CT scan.? Repeat CXRs have shown no subcutaneous air, mediastinal emphysema, or pneumothorax. We did turn the level of his sedation down on 11/09 and he did become more agitated, so the propofol and fentanyl were turned back up.? He went into rapid Aflutter (proven by adenosine).? Started on diltiazem with good rate control and conversion back into SR. Overnight last night Sat?s dropped into the mid-high 50s, but rebounded this morning to the 70-72% range, with a good tracing. On exam today, the propofol drip is at 45ug, fentanyl at 150ug.? Also on Levophed at 0.32 mcg, diltiazem at 2.5mg/hr and Lasix at 10mg/hr.? He?s unresponsive to even vigorous facial stimulation.? HR is 70, looks like SR. ?BP 98/35.? On PC ventilation, f26, 16/14, 100%, respiratory rate is 26, Vt 390cc, Ve 9.5 L, PIP 30, ETCO2 35, good Sat tracing showing 72%.? CVBG this morning showed 7.11/107/+1.? He continues afebrile.? Chest clear w normal expiratory phase.? He has 1+ peripheral edema today. LABORATORY DATA:? As below.? Notably, white count is up to 40. ?BUN/creatinine up to 89.2.9, bicarb down to 30, potassium up to 4.8, phosphorus up to 9.4.? Lactate 7.0. IMAGING:? Last Chest x-ray 11/09 showed worsened diffuse bilateral interstitial infiltrates with fluid in the fissure.? No subcutaneous emphysema, pneumomediastinum, or pneumothorax. IMPRESSION: 1. 79-year-old gentleman with underlying obesity, hypertension, diabetes mellitus, and CKD. 2. COVID-19 pneumonia. 3. ARDS. 4. Acute severe hypoxemic respiratory failure secondary to above. ?(PE ruled out by trop and BNP.) ?Failed steroids and remdesivir and tocilizumab. ?Driving pressure is relatively low.? Decadron was changed to Solumedrol 80mg bid. ?De spite all the above, SO2 continues to drop, now persistently down in the 60-70% range.? When it reaches the range of low 50s, he?ll have a bradycardic arrest.? (I?m surprised that didn?t happen last night.) ?Given lack of anything better to do, trialed diuresis, which not unexpectedly was reflected in a worsening of his renal indices this morning.? I will discontinue the Lasix. 5. Now with severe hypercarbic respiratory failure.? This is end-stage ARDS. 6. Progressive vucrr-ts-rvuqfql kidney injury.? Worsening with diuresis proves that fluid was not the problem. 7. Viral septic shock. 8. ID:? CXR shows no discreet infiltrate. ?WBC up further today.? Remains afebrile.? Blood cult from 10/29 and 11/07 are negative.? Sputum gram stain and culture are unrevealing.? PCT is unremarkable.? All in all, evidence is not suggestive of bacterial infection, but, rather, classic COVID.? Has been on empiric Zosyn, with no improvement or any sign of benefit.? Will d/c.? Despite the increasing WBC, there is no point in reculturing or other empiric abx (see further below). 9. Aflutter.? Converted with diltiazem.? But HR is slow now.? We?ll d/c, can restart if needed. 10. Hypernatremia.? We?re giving him free water. On 11/09, I spoke to the patient's HCP Lisa Chambers ([phone]) at length about his condition.? She definitely got the message that he?s not going to sanz rvive and that there was nothing we could do to change that outcome.? That night, the extended family did Face Time w the iPad.? 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 She speak w the family about that. That afternoon (11/10), the patient?s blood daughter Jessica came in to the [facility] and I spoke at length with her.? Then we teleconferenced with Lisa.? From what Lisa said, it appears that she (Lisa) was standing in as healthcare proxy for Jessica because Jessica was out of town.? Now that Jessica is here, Lisa wanted her to be the one to go in and see the patient.? It also appeared that Lisa wanted Jessica to make the decisions from now on.? But given that the patient had signed the healthcare proxy form designating Lisa, we were unable to accommodate that switch. Jessica did go in to visit with her father.? After she came out, she told me that all members of the family had spoken and no one was comfortable with withdrawing support.? Their opinion was to let him on the current level of support.? That is how we?ve been proceeding. Discussed again w Dr. Mcdermott today.? Given the patient?s worsening hypercarbia, hypoxemia, and renal fxn, his imminent is a certainty, regardless of anything we do.? The nurses have been in touch with Lisa and keeping her updated. I called her today and updated her myslef. She had no questions and was appreciative of everything that we are doing. Critical Care Time: 70 min Critical Care Time (minutes): 70 Physical Exam Vital Signs: Vital Signs: Last Vital Signs Temp 96.4 F L 11/11/20 12:00 Pulse 71 11/11/20 12:00 Resp 26 H 11/11/20 12:00 BP 115/34 L 11/11/20 12:00 Pulse Ox 72 L 11/11/20 12:00 Body Mass Index 43.0 Objective Data Labs CBC & Chem 7: 11/11/20 05:15 11/11/20 05:15 Labs: Laboratory Results - last 24 hr 11/10/20 11/10/20 11/10/20 12:54 14:56 17:10 WBC RBC Hgb Hct MCV MCH MCHC RDW Plt Count MPV Absolute Nucleated RBC Nucleated RBC % (auto) Smear Path Review D-Dimer VBG pH VBG pCO2 VBG pO2 VBG HCO3 VBG O2 Saturation VBG Base Excess Sodium Potassium Chloride Carbon Dioxide Anion Gap BUN Creatinine Estim Creat Clear Calc Estimated GFR POC Glucose 183 H 203 H 211 H Random Glucose Lactic Acid Lactic Acid Fup @ 2Hr Calcium Phosphorus Ferritin B-Natriuretic Peptide 11/10/20 11/10/20 11/10/20 19:07 20:59 23:18 WBC RBC Hgb Hct MCV MCH MCHC RDW Plt Count MPV Absolute Nucleated RBC Nucleated RBC % (auto) Smear Path Review D-Dimer VBG pH VBG pCO2 VBG pO2 VBG HCO3 VBG O2 Saturation VBG Base Excess Sodium Potassium Chloride Carbon Dioxide Anion Gap BUN Creatinine Estim Creat Clear Calc Estimated GFR POC Glucose 185 H 151 H 145 H Random Glucose Lactic Acid Lactic Acid Fup @ 2Hr Calcium Phosphorus Ferritin B-Natriuretic Peptide 11/11/20 11/11/20 11/11/20 01:12 02:49 05:03 WBC RBC Hgb Hct MCV MCH MCHC RDW Plt Count MPV Absolute Nucleated RBC Nucleated RBC % (auto) Smear Path Review D-Dimer VBG pH VBG pCO2 VBG pO2 VBG HCO3 VBG O2 Saturation VBG Base Excess Sodium Potassium Chloride Carbon Dioxide Anion Gap BUN Creatinine Estim Creat Clear Calc Estimated GFR POC Glucose 171 H 126 H 77 Random Glucose Lactic Acid Lactic Acid Fup @ 2Hr Calcium Phosphorus Ferritin B-Natriuretic Peptide 11/11/20 11/11/20 11/11/20 05:15 05:15 05:15 WBC 40.1 H* RBC 4.93 Hgb 15.0 Hct 51.3 MCV 104.1 H D MCH 30.4 MCHC 29.2 L RDW 14.6 Plt Count 156 L MPV 12.9 H Absolute Nucleated RBC 1.430 H Nucleated RBC % (auto) 3.6 H Smear Path Review SEE NOTE D-Dimer 1360 VBG pH VBG pCO2 VBG pO2 VBG HCO3 VBG O2 Saturation VBG Base Excess Sodium 145 Potassium 4.8 Chloride 97 Carbon Dioxide 30 H Anion Gap 23 H BUN 89 H* D Creatinine 2.92 H Estim Creat Clear Calc 25.2 Estimated GFR 21 POC Glucose Random Glucose 124 H Lactic Acid Lactic Acid Fup @ 2Hr Calcium 7.6 L Phosphorus 9.4 H Ferritin 1333 H B-Natriuretic Peptide 11/11/20 11/11/20 11/11/20 05:15 05:15 05:27 WBC RBC Hgb Hct MCV MCH MCHC RDW Plt Count MPV Absolute Nucleated RBC Nucleated RBC % (auto) Smear Path Review D-Dimer VBG pH 7.11 L* VBG pCO2 107 VBG pO2 44 VBG HCO3 34 H VBG O2 Saturation 55.0 VBG Base Excess 1.0 Sodium Potassium Chloride Carbon Dioxide Anion Gap BUN Creatinine Estim Creat Clear Calc Estimated GFR POC Glucose Random Glucose Lactic Acid 6.7 H* Lactic Acid Fup @ 2Hr Calcium Phosphorus Ferritin B-Natriuretic Peptide 288 H 11/11/20 11/11/20 11/11/20 06:48 08:06 08:44 WBC RBC Hgb Hct MCV MCH MCHC RDW Plt Count MPV Absolute Nucleated RBC Nucleated RBC % (auto) Smear Path Review D-Dimer VBG pH VBG pCO2 VBG pO2 VBG HCO3 VBG O2 Saturation VBG Base Excess Sodium Potassium Chloride Carbon Dioxide Anion Gap BUN Creatinine Estim Creat Clear Calc Estimated GFR POC Glucose 49 L* 123 H Random Glucose Lactic Acid Lactic Acid Fup @ 2Hr 7.0 H* Calcium Phosphorus Ferritin B-Natriuretic Peptide 11/11/20 09:58 WBC RBC Hgb Hct MCV MCH MCHC RDW Plt Count MPV Absolute Nucleated RBC Nucleated RBC % (auto) Smear Path Review D-Dimer VBG pH VBG pCO2 VBG pO2 VBG HCO3 VBG O2 Saturation VBG Base Excess Sodium Potassium Chloride Carbon Dioxide Anion Gap BUN Creatinine Estim Creat Clear Calc Estimated GFR POC Glucose 140 H Random Glucose Lactic Acid Lactic Acid Fup @ 2Hr Calcium Phosphorus Ferritin B-Natriuretic Peptide Microbiology Microbiology Results: Microbiology 11/08/20 17:27 Sputum - Suctioned Gram Stain - Final 11/08/20 17:27 Sputum - Suctioned Sputum Culture - Final Enterobacter cloacae complex 11/07/20 16:32 Blood - Venous Blood Culture - Preliminary No growth after 48 hours. 11/07/20 16:32 Blood - Venous Blood Culture - Preliminary No growth after 48 hours. 10/29/20 16:41 Blood - Venous Blood Culture - Final No growth after 5 days. 10/29/20 16:41 Blood - Venous Blood Culture - Final No growth after 5 days. Quality Stroke Does the patient have a stroke diagnosis?: No VTE Prior VTE?: No VTE Risk Level:: Medical - moderate - high VTE Device Contraindication: Treatment Not Indicated VTE Drug Contraindication: N/A - Med Ordered Critical Care Time Critical Care Time (minutes): 60
[2020-11-11 14:50] LABS: Glucose, Whole Blood 102 mg/dL (60-115)
[2020-11-11] MEDS: propofoL 1,000 MG/100 ML VIAL 19.06 MG IVCONT ×2 (16:24→21:30)
[2020-11-11 17:35] LABS: Glucose, Whole Blood 80 mg/dL (60-115)
[2020-11-11] MEDS: Dextrose 5 % 1,000 ML 50 ML IVCONT (17:55)
[2020-11-11] MEDS: Latanoprost 0.005 % Ophth Sol 2.5 ML DROPS 1 DROP EYE-BOTH (20:34)
[2020-11-11] MEDS: Aspirin Enteric Coated 81 MG TABLET.DR PO (20:34)
[2020-11-11 21:22] LABS: Glucose, Whole Blood 78 mg/dL (60-115)
[2020-11-11] MEDS: Lactulose 20 GM/30 ML SOLUTION 30 GM PO (21:30)
[2020-11-11 22:43] LABS: Glucose, Whole Blood 46 mg/dL (60-115)
[2020-11-12 00:09] LABS: Glucose, Whole Blood 101 mg/dL (60-115)
--- NOTE | 2020-11-12 00:21 | P.DS_ITS ---
DS: Providers Provider Date of Service: 11/12/20 Date of admission: 10/29/20 21:36 Primary care physician: Mary Chapman MD Consults: 10/30/20 07:35 Consult to Infectious Diseases Routine Consulting Provider: Daphnie Riley Reason for consultation: Covid19 for your kind eval. DS: Diagnosis Discharge Diagnosis (1) Acute respiratory distress syndrome (ARDS) due to COVID-19 virus: Status: Acute (2) Acute respiratory failure with hypoxia: Status: Acute (3) Type 2 diabetes mellitus with diabetic polyneuropathy: Status: Acute (4) Essential hypertension: Status: Acute (5) Type 2 diabetes mellitus with chronic kidney disease: Status: Acute (6) Obesity due to excess calories: Status: Acute DS: Summary Hospital Course Hospital Course: Cause of : Respiratory and Cardiac Arrest in the setting of Covid Induced ARDS ADMISSION / DISCHARGE DIAGNOSIS: ?1. Chronic Underlying obesity, hypertension, diabetes mellitus, and CKD. ?2. COVID-19 pneumonia. ?3. End stage ARDS ?4. Acute severe hypoxemic respiratory failure secondary to above. ?(PE ruled out by trop and BNP.) ?Failed steroids and remdesivir and tocilizumab. ? ?5. Severe hypercarbic respiratory failure.? ?6. Progressive [id number] kidney injury.? 7. Viral septic shock. 8. Aflutter.? Converted with diltiazem.? But HR is slow now.? We?ll d/c, can restart if needed. 9. Hypernatremia due to vol depletion and forced diuresis Leading Events: ??At 7:00 a.m. last night on November 112020 , patient appeared to have a steady O2 sat of 74% while on a vent with 100% FiO2, heart rate of 75, respiration rate of 29 with a blood pressure of 80/40. As the night went by, patient's vital signs deteriorated, at 9:00 p.m. his O2 sat dropped to 59, blood pressure 66/27 and this continued to deteriorate until 2299 when the patient's blood pressure was 50/38, O2 sat 48 and the end-tidal volume 1 from 32-22. Right at midnight on 11/12/2020, the patient became bradycardic with the lowest heart rate of 32 beats per minute in a 2nd pause followed by more bradycardia and hypoxia with O2 sat in the low 30s, eventually this became nondetectable and the patient went into asystole at 12:03 p.m..? He appeared to have intermittent electrical activity but all signs of live stopped at 12:10 a.m. and the patient was pronounced at this point. 1230 am Family notified. Talked to Leo Chambers (pt's daughter) HPI / Hospital Course: Mr. Sal Blanton was transferred to the ICU on Nov 01 with acute hypoxemic respiratory failure secondary to COVID-19 pneumonia. The patient is a 79-year-old gentleman with underlying history of obesity, hypertension, hyperlipidemia, diabetes mellitus, and CKD.? He presented to [facility] on 10/29/2020 with progressive dyspnea, cough, nausea, and diarrhea.? Sat was 88% on RA.? BUN/creat 54/2.2, DDimer 699, Ferritin 878, PCT 5.3.? COVID positive.? Perfusion scan showed no defects.? Admitted to Medicine with Dx COVID pneumonia and treated with dexamethasone and remdesivir.? I will estimate symptom onset date as approximately October 27. Hospital course marked by increasing supplemental oxygen requirements, including 100% HFNC.? Has been afebrile throughout.? On 11/01/2020 required transferred to intensive care unit for NIV.? Was holding his own on CPAP.? Was given tocilizumab on 11/02/2020.? On Nov 04, echo showed normal LV size, thickness, and systolic function, normal RV size and function, mild , normal IVC, with normal inspiratory collapse. On Nov 06 developed increasing respiratory distress and hypoxemia.? He required tracheal intubation early the next morning.? Screening troponin was 38, thought adequate to r/o PE as the cause.? The patient developed the metabolic acidosis (probably renal in origin) and leukocytosis that day.? Empiric Zosyn was started (which I missed noting in my prior notes this week). ?FiO2 since then has been 100%.? Sat?s continued to deteriorate progressively, down as low as the 60?s, confirmed by ABGs.? The Patient has been too unstable to go for CT scan.? Repeat CXRs have shown no subcutaneous air, mediastinal emphysema, or pneumothorax. We did turn the level of his sedation down on 11/09 and he did become more agitated, so the propofol and fentanyl were turned back up.? He went into rapid Aflutter (proven by adenosine).? Started on diltiazem with good rate control and conversion back into SR. On 11/09, Dr Luna talked to the patient's HCP Lisa Chambers ([phone]) at length about his condition.? She definitely got the message that he?s not going to survive and that there was nothing we could do to change that outcome.? That night, the extended family did Face Time w the iPad.? I spoke with Lisa again the following morning and reiterated the message with the purpose of seeking her agreement for [employer] status.? She would speak w the family about that. That afternoon (11/10), the patient?s blood daughter Jessica came in to the hospital and I spoke at length with her.? Then we teleconferenced with Lisa.? From what Lisa said, it appears that she (Lisa) was standing in as healthcare proxy for Jessica because Jessica was out of town.? Now that Jessica is here, Lisa wanted her to be the one to go in and see the patient.? It also appeared that Lisa wanted Jessica to make the decisions from now on.? But given that the patient had signed the healthcare proxy form designating Lisa, we were unable to accommodate that switch. Jessica did go in to visit with her father.? After she came out, she told me that all members of the family had spoken and no one was comfortable with withdrawing support.? Their opinion was to let him on the current level of support.? That is how we?ve been proceeding. Dr Luna discussed again w Dr. Mcdermott today.? Given the patient?s worsening hypercarbia, hypoxemia, and renal fxn, his imminent is a certainty, regardless of anything we do.? The nurses have been in touch with Lisa and keeping her updated.? I called her today and updated her myslef.? She had no questions and was appreciative of everything that we are doing. LABORATORY DATA:? As below.? Notably, white count is up to 40. ?BUN/creatinine up to 89.2.9, bicarb down to 30, potassium up to 4.8, phosphorus up to 9.4.? Lactate 7.0. IMAGING:? Last Chest x-ray 11/09 showed worsened diffuse bilateral interstitial infiltrates with fluid in the fissure.? No subcutaneous emphysema, pneumomediastinum, or pneumothorax. Time Spent with Patient Time attestation: Total time spent providing and/or coordinating discharge services: Discharge coordination time: Greater than 30 minutes Quality: Stroke Does the patient have a stroke diagnosis?: No Physical Exam Vital Signs: Vital Signs: Last Vital Signs Temp 97.7 F 11/11/20 23:00 Pulse 59 11/11/20 23:00 Resp 26 H 11/11/20 23:00 BP 58/38 L 11/11/20 23:00 Pulse Ox 48 L 11/11/20 23:00 Body Mass Index 43.0 DS: Data Data Completed and Pending Labs on day of discharge: Laboratory Results - last 24 hr 11/11/20 11/11/20 11/11/20 01:12 02:49 05:03 WBC RBC Hgb Hct MCV MCH MCHC RDW Plt Count MPV Absolute Nucleated RBC Nucleated RBC % (auto) Smear Path Review D-Dimer VBG pH VBG pCO2 VBG pO2 VBG HCO3 VBG O2 Saturation VBG Base Excess Sodium Potassium Chloride Carbon Dioxide Anion Gap BUN Creatinine Estim Creat Clear Calc Estimated GFR POC Glucose 171 H 126 H 77 Random Glucose Lactic Acid Lactic Acid Fup @ 2Hr Calcium Phosphorus Ferritin B-Natriuretic Peptide 11/11/20 11/11/20 11/11/20 05:15 05:15 05:15 WBC 40.1 H* RBC 4.93 Hgb 15.0 Hct 51.3 MCV 104.1 H D MCH 30.4 MCHC 29.2 L RDW 14.6 Plt Count 156 L MPV 12.9 H Absolute Nucleated RBC 1.430 H Nucleated RBC % (auto) 3.6 H Smear Path Review SEE NOTE D-Dimer 1360 VBG pH VBG pCO2 VBG pO2 VBG HCO3 VBG O2 Saturation VBG Base Excess Sodium 145 Potassium 4.8 Chloride 97 Carbon Dioxide 30 H Anion Gap 23 H BUN 89 H* D Creatinine 2.92 H Estim Creat Clear Calc 25.2 Estimated GFR 21 POC Glucose Random Glucose 124 H Lactic Acid Lactic Acid Fup @ 2Hr Calcium 7.6 L Phosphorus 9.4 H Ferritin 1333 H B-Natriuretic Peptide 11/11/20 11/11/20 11/11/20 05:15 05:15 05:27 WBC RBC Hgb Hct MCV MCH MCHC RDW Plt Count MPV Absolute Nucleated RBC Nucleated RBC % (auto) Smear Path Review D-Dimer VBG pH 7.11 L* VBG pCO2 107 VBG pO2 44 VBG HCO3 34 H VBG O2 Saturation 55.0 VBG Base Excess 1.0 Sodium Potassium Chloride Carbon Dioxide Anion Gap BUN Creatinine Estim Creat Clear Calc Estimated GFR POC Glucose Random Glucose Lactic Acid 6.7 H* Lactic Acid Fup @ 2Hr Calcium Phosphorus Ferritin B-Natriuretic Peptide 288 H 11/11/20 11/11/20 11/11/20 06:48 08:06 08:44 WBC RBC Hgb Hct MCV MCH MCHC RDW Plt Count MPV Absolute Nucleated RBC Nucleated RBC % (auto) Smear Path Review D-Dimer VBG pH VBG pCO2 VBG pO2 VBG HCO3 VBG O2 Saturation VBG Base Excess Sodium Potassium Chloride Carbon Dioxide Anion Gap BUN Creatinine Estim Creat Clear Calc Estimated GFR POC Glucose 49 L* 123 H Random Glucose Lactic Acid Lactic Acid Fup @ 2Hr 7.0 H* Calcium Phosphorus Ferritin B-Natriuretic Peptide 11/11/20 11/11/20 11/11/20 09:58 14:46 17:31 WBC RBC Hgb Hct MCV MCH MCHC RDW Plt Count MPV Absolute Nucleated RBC Nucleated RBC % (auto) Smear Path Review D-Dimer VBG pH VBG pCO2 VBG pO2 VBG HCO3 VBG O2 Saturation VBG Base Excess Sodium Potassium Chloride Carbon Dioxide Anion Gap BUN Creatinine Estim Creat Clear Calc Estimated GFR POC Glucose 140 H 102 80 Random Glucose Lactic Acid Lactic Acid Fup @ 2Hr Calcium Phosphorus Ferritin B-Natriuretic Peptide 11/11/20 11/11/20 11/11/20 20:33 22:38 23:24 WBC RBC Hgb Hct MCV MCH MCHC RDW Plt Count MPV Absolute Nucleated RBC Nucleated RBC % (auto) Smear Path Review D-Dimer VBG pH VBG pCO2 VBG pO2 VBG HCO3 VBG O2 Saturation VBG Base Excess Sodium Potassium Chloride Carbon Dioxide Anion Gap BUN Creatinine Estim Creat Clear Calc Estimated GFR POC Glucose 78 46 L* 101 Random Glucose Lactic Acid Lactic Acid Fup @ 2Hr Calcium Phosphorus Ferritin B-Natriuretic Peptide Preliminary micro results at discharge 11/07/20 16:32 Blood Culture - Preliminary Blood - Venous No growth after 48 hours. 11/07/20 16:32 Blood Culture - Preliminary Blood - Venous No growth after 48 hours. Discharge Plan Discharge Date/Time: 11/12/20 00:10 Patient Disposition: Discharge Diagnosis: Respiratory/Cardiac Arrest Referrals: Mary Chapman MD [Primary Care Provider] - 1 Week Discharge Medications: No Action Farxiga 10 mg tablet 10 mg PO QAM Qty: 90 RF: 1 Trulicity 0.75 mg/0.5 mL pen injector 0.75 mg subcut QWEEK Qty: 6 RF: 0 metformin 500 mg tablet extended release 24 hr 500 mg PO BID Qty: 180 RF: 0 pioglitazone 15 mg tablet 15 mg PO QAM Qty: 90 RF: 1 latanoprost 0.005 % drops 1 drp ophthalmic (eye) BEDTIME RF: 0 chlorthalidone 25 mg tablet 1 tab PO QAM RF: 0 aspirin 81 mg tablet,delayed release (DR/EC) 1 tab PO BEDTIME RF: 0 (DME) lancets 33 gauge misc See Rx Instructions ea .ROUTE .MEDSUPPLY Qty: 100 RF: 0 (DME) pen needle, diabetic 32 gauge x 5/32 needle See Rx Instructions ea .ROUTE .MEDSUPPLY Qty: 50 RF: 0 Lantus Solostar U-100 Insulin 100 unit/mL (3 mL) insulin pen 48 unit subcut BEDTIME RF: 0 simvastatin 40 mg tablet 40 mg PO BEDTIME RF: 0 (DME) FreeStyle Lite Strips Strip See Rx Instructions ea Not Applicable .MEDSUPPLY Qty: 10 RF: 0 lisinopril 20 mg tablet 20 mg PO DAILY RF: 0 cilostazol 100 mg tablet 100 mg PO BID@1200,2100 RF: 0 insulin aspart U-100 100 unit/mL (3 mL) insulin pen See Rx Instructions subcut .COMPLEX RF: 0 Discharge Orders: Discharge Order (Routine); Ordered 11/12/20 Ordered By: Suraj Ferrera Discharge Date/Time: 11/12/20 01:49
--- NOTE | 2020-11-12 00:27 | PC.NURSE ---
Assumed care of pt at 1900. Pt maintained on pressure control vent settings as ordered. FiO2 100%. O2 sats only in the 70's at 1900 and continued to drop slowly over the last 5 hours to 60's, 50's and then undetectable. SBP was 70's and dropped slowly to 60's and 50's then undetectable. At 0000, rhythm was jacob in the 30's with a 3 sec pause but then rate went back up to 40's for a few minutes after which pt went asystole. No palpable pulse. Pt is a DNR. Suraj Ferrera at bedside and pronounced pt at 0010.
--- NOTE | 2020-11-12 01:20 | PC.NURSE ---
[employer] notified of and declined the case per Mary Hernadez. Management Accountant notified. Post mortem care done and body prepared for the morgue.
== END 2020-11-12 01:49 | disposition expired | DRG 207 ==
LOC: HO.ED 18:50 → HO.EDOVER 22:33 → HO.IMC 10-30 19:35 → HO.ICU 11-01 16:17
PROVIDERS: Internal Medicine; Internal Medicine Pulmonary Disease; Physician Assistant; Physician Assistant Medical; Student in an Organized Health Care Education/Training Program; Admitting Provider Internal Medicine; Emergency Provider Emergency Medicine Emergency Medical Services; PCP Internal Medicine; Visit Provider Anesthesiology
DX: U07.1 COVID-19 (principal); J12.82 Pneumonia due to coronavirus disease 2019; J80 Acute respiratory distress syndrome; A41.89 Other specified sepsis; R65.21 Severe sepsis with septic shock; E87.1 Hypo-osmolality and hyponatremia; N17.9 Acute kidney failure, unspecified; Z68.41 Body mass index [BMI] 40.0-44.9, adult; E87.2 Acidosis; E87.0 Hyperosmolality and hypernatremia; I48.92 Unspecified atrial flutter; I12.9 Hypertensive chronic kidney disease with stage 1 through stage 4 chronic kidney disease, or unspecified chronic kidney disease; E11.42 Type 2 diabetes mellitus with diabetic polyneuropathy; E66.01 Morbid (severe) obesity due to excess calories; E11.22 Type 2 diabetes mellitus with diabetic chronic kidney disease; N18.30 Chronic kidney disease, stage 3 unspecified; E78.5 Hyperlipidemia, unspecified; I46.9 Cardiac arrest, cause unspecified; E87.5 Hyperkalemia; Z79.4 Long term (current) use of insulin; Z79.82 Long term (current) use of aspirin; Z79.899 Other long term (current) drug therapy
CPT/HCPCS: 0241U; 36415; 71045; 78580; 80048; 80053; 80076; 82040; 82436; 82728; 82803; 82947; 83605; 83615; 83735; 83880; 83930; 83935; 84100; 84133; 84145; 84300; 84484; 85007; 85025; 85027; 85379; 85610; 85730; 86140; 87040; 87070; 87077; 87186; 87205; 93005; 93306; 94002; 94003; 94660; 96361; 96365; 96375; 99285; A9540; C1758; J0153; J0610; J0696; J1100; J1940; J2543; J2930; J3010; J3262; J3370; J3490